=== PATIENT | female | born 1935 | race Caucasian/White ===

== ENCOUNTER 2020-09-05 13:31 | Emergency (ER) | payer OTHER, SELFPAY ==
[2020-09-05 13:41] VITALS: BP 137/58; PULSE 85; RESP 14; TEMP 36.7; O2SAT 98
--- NOTE | 2020-09-05 13:44 | DI.RAD.S_ITS ---
PROCEDURE: XR KNEE LT 3V INDICATIONS: knee pain TECHNIQUE: 3 views of the knee were acquired. COMPARISON: None. FINDINGS: Bones: No fractures or dislocations. No suspicious bony lesions. Soft tissues: No joint effusion. No suspicious soft tissue calcifications. IMPRESSION: No visualized acute fracture or dislocation. However, if clinical concern and/or pain persist, short interval imaging followup in 7-10 days is recommended, as occult injury cannot be definitively excluded. Dictated by: Maribel Ferro M.D. on 09/05/2020 at 14:23 Approved by: Maribel Ferro M.D. on 09/05/2020 at 14:27
--- NOTE | 2020-09-05 13:48 | ED_ITS ---
HPI - Extremity Injury (Lower) <SUSAN Martinez - Last Filed: 09/05/20 20:43> General Chief Complaint: Extremity Injury, Lower Stated Complaint: increase in pain,worse range of motion l knee Time Seen by Provider: 09/05/20 13:40 Source: family Mode of arrival: Wheelchair History of Present Illness HPI Narrative: 85yo female with a history of dementia presents emergency department with family for left knee pain. She denies any falls but awoke this morning complaining of worsening pain with weight-bearing and bending in her left knee. Family noted some bruising to the knee. She denies taking any blood thinners, denies any other pain such as hip pain, denies falls, denies head injury, chest pain, shortness of breath, fevers, unusual behavior, vomiting, diarrhea, or any other concerns. Review of Systems <SUSAN Martinez - Last Filed: 09/05/20 20:43> Review of Systems Narrative: REVIEW OF SYSTEMS: GENERAL: Denies fever or chills. HENT: No head trauma. CARDIOVASCULAR: No chest pain or syncope. RESPIRATORY: No shortness of breath or cough. GASTROINTESTINAL: No nausea, vomiting, diarrhea, or constipation. MUSCULOSKELETAL: Complains of left knee pain, see HPI. INTEGUMENTARY: No rash. NEURO: No numbness, tingling. PSYCH: No behavior or mood changes. Patient History <SUSAN Martinez - Last Filed: 09/05/20 20:43> Medical History Dementia (Acute) Social History Smoking Status: Never smoker Smoking Status: Never smoker Exam <SUSAN Martinez - Last Filed: 09/05/20 20:43> Initial Vital Signs Initial Vital Signs: Vital Signs Temperature 98.1 F 09/05/20 13:41 Pulse Rate 85 09/05/20 13:41 Respiratory Rate 14 09/05/20 13:41 Blood Pressure 137/58 L 09/05/20 13:41 Pulse Oximetry 98 09/05/20 13:41 PHYSICAL EXAMINATION: GENERAL: Well groomed, alert, and cooperative. Answers questions promptly and appropriately. Vital signs noted. HENT: Normocephalic, atraumatic. EYES: Symmetrical, sclera white, no periorbital swelling. CARDIOVASCULAR: S1 and S2 sounds normal. Regular rate and rhythm, no murmurs, clicks, or bruits. No pedal edema. RESPIRATORY: Normal respiratory rate, trachea midline, airway patent. No stridor, nasal flaring or accessory muscle use. Lungs are clear in all sánchez. MUSCULOSKELETAL: No tenderness to palpation of left knee but increased pain with flexion, flexion to approximately 90?, full extension. To patches of ecchymosis noted to patella and inferior patella area. No pain with palpation to left hip, internal, external rotation or hip flexion. Normal gait and coordination. Equal tone and mass bilaterally. EXTREMITIES: CMS intact. No pedal edema. SKIN: Warm, dry, soft, appropriate color for ethnicity. No lesions, rashes, or wounds. NEURO: Alert and Oriented X 3. No sensory deficits. PSYCH: Appropriate affect and mood. <Jose Luis Cox MD - Last Filed: 09/06/20 18:05> Initial Vital Signs Initial Vital Signs: Vital Signs Temperature 98.1 F 09/05/20 13:41 Pulse Rate 85 09/05/20 13:41 Respiratory Rate 14 09/05/20 13:41 Blood Pressure 137/58 L 09/05/20 13:41 Pulse Oximetry 98 09/05/20 13:41 Course <SUSAN Martinez - Last Filed: 09/05/20 20:43> Course Course Narrative: Patient seen putting weight on left leg without complains of pain. Orders Ordered: Discontinued Medications Acetaminophen (Tylenol) 650 mg PO NOW ONE Stop: 09/05/20 13:48 Last Admin: 09/05/20 14:20 Dose: 650 mg Documented by: TONG Vital Signs Vital signs: Vital Signs - 8 hr 09/05/20 13:41 09/05/20 15:28 Temperature 98.1 F Pulse Rate 85 78 Respiratory Rate 14 14 Blood Pressure 137/58 L 137/59 L Pulse Oximetry 98 99 <Jose Luis Cox MD - Last Filed: 09/06/20 18:05> Orders Ordered: Discontinued Medications Acetaminophen (Tylenol) 650 mg PO NOW ONE Stop: 09/05/20 13:48 Last Admin: 09/05/20 14:20 Dose: 650 mg Documented by: TONG Vital Signs Vital signs: Vital Signs - 8 hr 09/05/20 13:41 09/05/20 15:28 Temperature 98.1 F Pulse Rate 85 78 Respiratory Rate 14 14 Blood Pressure 137/58 L 137/59 L Pulse Oximetry 98 99 [facility] - Extremity Injury (Lower) <SUSAN Martinez - Last Filed: 09/05/20 20:43> Medical Records Attestation: I reviewed the patient's medical records. Lab Data Attestation: I reviewed the patient's lab results. Imaging Data Extremity x-ray #1: Radiologist's Impression: [address] [address] XRay Report Signed Patient: Nargis Gutierrez DMR#: [id number] : 6Acct:[id number] Age/Sex: 85 / FDate of Service: 09/05/20 Loc: ED Accession Number: [id number] Procedure: XR knee LT 3V Ordering Provider: Miranda Gallo PROCEDURE: XR KNEE LT 3V INDICATIONS: knee pain TECHNIQUE: 3 views of the knee were acquired. COMPARISON: None. FINDINGS: Bones: No fractures or dislocations. No suspicious bony lesions. Soft tissues: No joint effusion. No suspicious soft tissue calcifications. IMPRESSION: No visualized acute fracture or dislocation. However, if clinical concern and/or pain persist, short interval imaging followup in 7-10 days is recommended, as occult injury cannot be definitively excluded. Dictated by: Maribel Ferro M.D. on 09/05/2020 at 14:23 Approved by: Maribel Ferro M.D. on 09/05/2020 at 14:27 [facility] Narrative Medical decision making narrative: 85-year-old female presenting to the emergency department for complaints of left knee pain. She appears to have a history of dementia, presents with family who saw some bruising on her knee is concern for possible fall even the patient refuses recent falls. X-ray negative for any fractures, no significant pain on palpation, able to bear weight with transfer. Unsure exact cause of knee pain but differential includes contusion, sprain, versus arthritis. Return precautions given for new or worsening symptoms. Patient agreed to plan of care verbalized understanding. Discharge Plan Departure Patient Disposition: Home Clinical Impression: Acute knee pain Qualifiers: Laterality: left Qualified Code(s): M25.562 - Pain in left knee Discharge Date/Time: 09/05/20 15:30 Instructions: DI for Knee Pain Activity Restrictions/Additional Instructions: Thank you for entrusting me with your care today. As discussed, x-rays negative for any fractures. I suggest taking Tylenol (650mg every 8 hours) and using an elastic bandage for the next few days to help with pain. Follow-up with PCP if symptoms continue. Return emergency department for any new or worsening symptoms. <Jose Luis Cox MD - Last Filed: 09/06/20 18:05> Cosign ED Attending Cosignature Attestation: I was immediately available in the department for consultation. This documentation has been reviewed and I agree with assessment and plan. Supervised by Jose Luis Cox MD
[2020-09-05] MEDS: ACETAMINOPHEN 325 MG TABLET 650 MG PO (14:20)
[2020-09-05 15:28] VITALS: BP 137/59; PULSE 78; RESP 14; O2SAT 99
== END 2020-09-05 15:30 | disposition home or self-care (01) ==
PROVIDERS: Emergency Provider Nurse Practitioner
DX: M25.562 Pain in left knee (principal)
CPT/HCPCS: 73562; 99283

== ENCOUNTER 2020-12-11 13:01 | Emergency (ER) | payer OTHER, SELFPAY ==
[2020-12-11] VITALS (8 sets, daily range): BP systolic 131–141; BP diastolic 61–65; PULSE 77–87; RESP 15–18; TEMP 36.8; O2SAT 94–97; BMI 21.0
--- NOTE | 2020-12-11 13:02 | ED_ITS ---
HPI - Fall General Chief Complaint: Fall Stated Complaint: GLF Time Seen by Provider: 12/11/20 13:02 Source: patient and EMS Mode of arrival: EMS Limitations: no limitations History of Present Illness HPI Narrative: Patient is a 85-year-old female who resides at [facility] presenting after a ground level. She is unsure exactly how she fell but she hit her head on the left side where there is an obvious contusion and has left knee pain. No loss of consciousness numbness tingling or weakness. She d enies any chest pain dizziness or lightheadedness. complaint: fall Onset (ago): minute(s) Fall from: standing Place fall occurred: home Loss of consciousness: none Related Data Allergies Allergy/AdvReac Type Severity Reaction Status Date / Time codeine Allergy Verified 12/11/20 13:13 metronidazole [From Flagyl] Allergy Verified 12/11/20 13:13 Review of Systems Review of Systems Narrative: GENERAL: Denies chills, fatigue, malaise, fever, sweats, travel HEENT: Denies sinus pain, ear pain, sore throat, difficulty swallowing, neck pain RESPIRATORY: Denies dyspnea, cough, wheezing, hemoptysis, sputum. CARDIOVASCULAR: Denies chest pain, palpitations, orthopnea, edema GASTROINTESTINAL: Denies nausea, vomiting, abdominal pain, diarrhea, constipation, melena. : Denies dysuria, frequency, incontinence, hematuria, urinary retention, flank pain. MUSCULOSKELETAL: Left knee pain, see HPI SKIN: No rash, no erythema, no pruritus NEUROLOGIC:+ head injury, see HPI PSYCHIATRIC: No concerning psychosocial issues. 12 point review of systems is negative except for those stated above and HPI Patient History Medical History (Updated 12/11/20 @ 18:09 by Lainey Sanders DO) Dementia Social History Smoking Status: Never smoker Smoking Status: Never smoker Exam Initial Vital Signs Initial Vital Signs: Vital Signs Temperature 98.3 F 12/11/20 13:10 Pulse Rate 80 12/11/20 13:10 Respiratory Rate 16 12/11/20 13:10 Blood Pressure 133/61 12/11/20 13:10 Pulse Oximetry 97 12/11/20 13:10 GENERAL: Alert pleasant 85 in female and in no acute distress. HEENT: Head left eyebrow, in no crepitations or depressions,EOMI, pupils reactive, face symmetric, moist mucous membranes NECK: No vertebral tenderness no step-off CARDIOVASCULAR: Regular rate and rhythm without murmurs, rubs or gallops. RESPIRATORY: Breath sounds equal bilaterally, no wheezes rales or rhonchi. ABDOMEN: Soft, nontender. Normoactive bowel sounds all 4 quadrants. No guarding or rebound. EXTREMITIES: Normal range of motion, no clubbing or edema. 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 Scores NIH Stroke Scale Level of Conciousness: Alert, keenly responsive Ask month/age: Answers one question correctly, intubated follow commands Open/close eyes, close hand: Performs both tasks correctly Best gaze horizontal: Normal Visual sánchez: No visual loss Facial palsy: Normal symetrical movement Left arm drift: No drift for full 10 sec Right arm drift: No drift for full 10 sec Left leg drift: No drift for full 5 sec Right leg drift: No drift for full 5 sec Limb ataxia: Absent Sensory on face/arms/legs: Normal, no sensory loss Best language: No aphasia, normal Dysarthria: Normal Extinction or inattention: No abnormality Total NIH Stroke scale score: 1 Course Orders Ordered: ED Orders 12/11/20 13:14 CT cervical spine wo con Stat CT head/brain wo con Stat XR knee LT 3V Stat EKG-12 Lead Stat 12/11/20 13:18 Basic Metabolic Panel Stat Complete Blood Count AUTO DIFF Stat Partial Thromboplastin Time Stat Prothrombin Time INR Stat 12/11/20 14:13 COVID19 Stat 12/11/20 17:15 CT head/brain wo con Stat Vital Signs Vital signs: Vital Signs - 8 hr 12/11/20 13:10 12/11/20 14:00 12/11/20 14:50 Temperature 98.3 F Pulse Rate 80 83 87 Respiratory Rate 16 16 18 Blood Pressure 133/61 139/63 Pulse Oximetry 97 94 97 12/11/20 15:32 12/11/20 16:47 12/11/20 16:48 Temperature Pulse Rate 78 80 79 Respiratory Rate 18 Blood Pressure 131/65 131/63 Pulse Oximetry 96 96 95 12/11/20 16:49 12/11/20 18:09 Temperature Pulse Rate 77 79 Respiratory Rate 16 15 Blood Pressure 137/63 141/65 H Pulse Oximetry 97 95 - Fall Lab Data Attestation: I reviewed the patient's lab results. Result diagrams: 12/11/20 13:18 12/11/20 13:18 Labs: Lab Results 12/11/20 12/11/20 12/11/20 Range/Units 13:18 13:18 13:18 WBC 6.3 (4.5-11.0) X10^3/uL RBC 4.10 (4.0-5.2) X10^6/uL Hgb 11.4 L (12.0-16.0) g/dL Hct 35.2 L (36-46) % MCV 85.9 (80-100) fL MCH 27.9 (26-34) PG MCHC 32.5 (30-36) % RDW 14.8 (11.6-14.8) % Plt Count 143 L (150-400) X10^3/uL Neut % (Auto) 68.5 (50-75) % Lymph % (Auto) 19.8 L (25-40) % [place] % (Auto) 10.6 (3-14) % Eos % (Auto) 0.6 L (2-4) % Baso % (Auto) 0.5 (0-2) % Neut # (Auto) 4300 (6719-5729) /uL Lymph # (Auto) 1200 (8980-4490) /uL [place] # (Auto) 700 (0-900) /uL Eos # (Auto) 0 (0-450) /uL Baso # (Auto) 0 (0-100) /uL PT 12.0 (10.1-12.7) SECONDS INR 1.0 (0.9-1.3) APTT 35 (26.4-36.2) SECONDS Sodium 139 (137-145) mmol/L Potassium 4.3 (3.4-5.1) mmol/L Chloride 107 (98-107) mmol/L Carbon Dioxide 29 (22-32) mmol/L BUN 15 (7-17) mg/dL Creatinine 0.73 (0.52-1.04) mg/dL Estimated GFR > 60.0 (>60) mL/min BUN/Creatinine Ratio 20.5 (6-22) Glucose 112 H (80-110) mg/dL Calcium 8.7 (8.4-10.2) mg/dL SARS-CoV-2 (PCR) (Negative) 12/11/20 Range/Units 14:13 WBC (4.5-11.0) X10^3/uL RBC (4.0-5.2) X10^6/uL Hgb (12.0-16.0) g/dL Hct (36-46) % MCV (80-100) fL MCH (26-34) PG MCHC (30-36) % RDW (11.6-14.8) % Plt Count (150-400) X10^3/uL Neut % (Auto) (50-75) % Lymph % (Auto) (25-40) % [place] % (Auto) (3-14) % Eos % (Auto) (2-4) % Baso % (Auto) (0-2) % Neut # (Auto) (5229-6982) /uL Lymph # (Auto) (3464-2051) /uL [place] # (Auto) (0-900) /uL Eos # (Auto) (0-450) /uL Baso # (Auto) (0-100) /uL PT (10.1-12.7) SECONDS INR (0.9-1.3) APTT (26.4-36.2) SECONDS Sodium (137-145) mmol/L Potassium (3.4-5.1) mmol/L Chloride (98-107) mmol/L Carbon Dioxide (22-32) mmol/L BUN (7-17) mg/dL Creatinine (0.52-1.04) mg/dL Estimated GFR (>60) mL/min BUN/Creatinine Ratio (6-22) Glucose (80-110) mg/dL Calcium (8.4-10.2) mg/dL SARS-CoV-2 (PCR) Negative (Negative) Imaging Data CT scan - head: Radiologist's Impression: PROCEDURE: CT HEAD/BRAIN WO CON INDICATIONS: fall contusion TECHNIQUE: Noncontrast 4.5 mm thick angled axial sections acquired from the foramen magnum to the vertex, with coronal and sagittal reformats. For radiation dose reduction, the following was used: automated exposure control, adjustment of mA and/or kV according to patient size. COMPARISON: [facility], CR, XR KNEE LT 3V, 12/11/2020, 13:32. [facility], CT, CT CERVICAL SPINE WO CON, 12/11/2020, 13:17. FINDINGS: Image quality: Excellent. CSF spaces: Basal cisterns are patent. No extra-axial fluid collections. The ventricles are symmetric in size and shape. Brain: Within the left cerebellar hemisphere, there is a 7 mm focus of hyperdensity seen. No intracranial masses. There is cerebral volume loss for age, with resultant ventricular and sulcal prominence. There are periventricular and deep white matter chronic small vessel ischemic changes. There is intracranial internal carotid artery atherosclerosis. Skull and face: Left periorbital scalp swelling is seen. No underlying calvarial fracture can be seen. Calvarium and visualized facial bones appear intact, without suspicious lesions. Incidental note is made of hyperostosis frontalis. This is not considered to be pathologic in a woman of this age. Sinuses: Visualized sinuses and mastoids are clear. IMPRESSION: 7 mm focus of hyperdensity within the left cerebellar hemisphere. In this patient with trauma, this is attributed to a focus of intraparenchymal hemorrhage. However, differential diagnosis would also include a hemangioma. There is left periorbital soft tissue swelling, without an associated fracture. Note is made of age-appropriate brain parenchymal volume loss and chronic small vessel ischemic changes. Note: Critical finding of acute intracranial hemorrhage discussed by telephone with Dr. Sanders at 12:44 p.m. [place] time on December 11, 2020. Dictated by: Casper Barajas M.D. on 12/11/2020 at 12:42 CT - cervical spine: Radiologist's Impression: PROCEDURE: CT CERVICAL SPINE WO CON INDICATIONS: fall TECHNIQUE: Noncontrast 3 mm thick sections acquired from the skull base to the T4 level. Sagittal and coronal reformats were then constructed. For radiation dose reduction, the following was used: automated exposure control, adjustment of mA and/or kV according to patient size. COMPARISON: [facility], CR, XR KNEE LT 3V, 12/11/2020, 13:32. [facility], CT, CT HEAD/BRAIN WO CON, 12/11/2020, 13:17. FINDINGS: Image quality: Excellent. Bones: No fractures or dislocations. Visualized superior ribs are intact. Degenerative changes are seen, including moderate disc space narrowing at C3-C4, with moderate to severe disc space narrowing at C4-C5, C5-C6, and C6-C7. Posteriorly directed endplate osteophytes are seen, which are worst at the C5-C6 level. Milder degenerative changes are seen elsewhere. Soft tissues: There is a small left-sided pleural effusion. Prevertebral soft tissues are normal in thickness. No paravertebral hematomas. No apical pneumothoraces. IMPRESSION: No acute fractures are seen. Small left-sided pleural effusion. Lower cervical spine degenerative changes are seen. Note: Case discussed by telephone with Dr. Sanders at 12:44 p.m. [place] time on December 11, 2020. Dictated by: Casper Barajas M.D. on 12/11/2020 at 12:46 Extremity x-ray #1: Radiologist's Impression: PROCEDURE: XR KNEE LT 3V INDICATIONS: fall pain TECHNIQUE: 3 views of the knee were acquired. COMPARISON: [facility], CT, CT HEAD/BRAIN WO CON, 12/11/2020, 13:17. [facility], CT, CT CERVICAL SPINE WO CON, 12/11/2020, 13:17. [facility], CR, XR KNEE LT 3V, 09/05/2020, 13:47. FINDINGS: Bones: No fractures or dislocations. No suspicious bony lesions. Age- appropriate bony degenerative changes are seen. Soft tissues: There is a moderate joint effusion. No suspicious soft tissue calcifications. IMPRESSION: Degenerative changes are seen, without an acute bony abnormality seen by plain film. Moderate joint effusion. If there is strong clinical suspicion for internal derangement of the knee, please consider a dedicated, scheduled MRI for further evaluation (assuming that there is no contraindication to MRI). Dictated by: Casper Barajas M.D. on 12/11/2020 at 12:[address] #2: Radiologist's Impression: PROCEDURE: CT HEAD/BRAIN WO CON INDICATIONS: f/u on bleed TECHNIQUE: Noncontrast 4.5 mm thick angled axial sections acquired from the foramen magnum to the vertex, with coronal and sagittal reformats. For radiation dose reduction, the following was used: automated exposure control, adjustment of mA and/or kV according to patient size. COMPARISON: [facility], CT, CT HEAD/BRAIN WO CON, 12/11/2020, 13:17. FINDINGS: Image quality: Excellent. CSF spaces: Basal cisterns are patent. No extra-axial fluid collections. The ventricles are symmetric in size and shape. Brain: There is a stable hyperdense focus seen within the left cerebellum, without enlargement. No new foci of hemorrhage can be seen. No intracranial masses. There is cerebral volume loss for age, with resultant ventricular and sulcal prominence. There are periventricular and deep white matter chronic small vessel ischemic changes. There is intracranial internal carotid artery atherosclerosis. Skull and face: There is soft tissue swelling with hematoma involving the left periorbital region. No underlying regional fracture can be seen. Incidental note is made of hyperostosis frontalis. This is not considered to be pathologic in a woman of this age. Sinuses: Visualized sinuses and mastoids are clear. IMPRESSION: Stable focus of presumed acute hemorrhage within the left cerebellar hemisphere. Left periorbital soft tissue swelling, without an associated regional fracture. Dictated by: Casper Barajas M.D. on 12/11/2020 at 16:33 ECG Data Attestation: I personally reviewed and interpreted this ECG as follows: Prior ECG tracings: not available for review Interpretation: Normal sinus rhythm rate 80 p.r. interval 144 QRS [address] changes no priors to compare MDM Narrative Medical decision making narrative: Patient is neurologically intact not on any antiplatelet or anticoagulation medication. Found to have a small 7 mm area of hemorrhage on her CT. She has no focal deficits she is at her baseline mental status. Son is at bedside. 3:[address] Forman neuro surgery at [facility] recommends a 4 hour follow-up CT. If stable may be discharged home and follow up only if she has persistent symptoms. Discussed at length with son goals of care intervention versus no intervention. At this time he agrees with repeat head CT and reassessed. She continues to be at her baseline. Repeat head CT remains stable in un changed and so does the patient clinically. At this time he understands that she may worsen and to monitor for warning signs and return if needed. Discharge Plan Departure Patient Disposition: Home Clinical Impression: Intracranial hemorrhage Instructions: Subarachnoid Hemorrhage Activity Restrictions/Additional Instructions: *You have been diagnosed with intracranial hemorrhage *What to do: At this time bleeding in her brain appears stable and small. Avoid NSAIDs such as aspirin, Aleve, ibuprofen, Motrin, naproxen etc. *Continue to take medications as directed Tylenol 650 mg every 4-6 hours if needed for pain *Follow up with your primary care provider in 2-3 days *Return to ER if you should have increased confusion, persistent vomiting, no weakness numbness facial droop or any new, worsening or concerning symptoms Referrals: Arianna Berg MD [Primary Care Provider] -
--- NOTE | 2020-12-11 13:14 | DI.CT.S_ITS ---
PROCEDURE: CT HEAD/BRAIN WO CON INDICATIONS: fall contusion TECHNIQUE: Noncontrast 4.5 mm thick angled axial sections acquired from the foramen magnum to the vertex, with coronal and sagittal reformats. For radiation dose reduction, the following was used: automated exposure control, adjustment of mA and/or kV according to patient size. COMPARISON: [facility], CR, XR KNEE LT 3V, 12/11/2020, 13:32. [facility], CT, CT CERVICAL SPINE WO CON, 12/11/2020, 13:17. FINDINGS: Image quality: Excellent. CSF spaces: Basal cisterns are patent. No extra-axial fluid collections. The ventricles are symmetric in size and shape. Brain: Within the left cerebellar hemisphere, there is a 7 mm focus of hyperdensity seen. No intracranial masses. There is cerebral volume loss for age, with resultant ventricular and sulcal prominence. There are periventricular and deep white matter chronic small vessel ischemic changes. There is intracranial internal carotid artery atherosclerosis. Skull and face: Left periorbital scalp swelling is seen. No underlying calvarial fracture can be seen. Calvarium and visualized facial bones appear intact, without suspicious lesions. Incidental note is made of hyperostosis frontalis. This is not considered to be pathologic in a woman of this age. Sinuses: Visualized sinuses and mastoids are clear. IMPRESSION: 7 mm focus of hyperdensity within the left cerebellar hemisphere. In this patient with trauma, this is attributed to a focus of intraparenchymal hemorrhage. However, differential diagnosis would also include a hemangioma. There is left periorbital soft tissue swelling, without an associated fracture. Note is made of age-appropriate brain parenchymal volume loss and chronic small vessel ischemic changes. Note: Critical finding of acute intracranial hemorrhage discussed by telephone with Dr. Sanders at 12:44 p.m. [place] time on December 11, 2020. Dictated by: Casper Barajas M.D. on 12/11/2020 at 12:42 Approved by: Casper Barajas M.D. on 12/11/2020 at 12:45
--- NOTE | 2020-12-11 13:14 | DI.RAD.S_ITS ---
PROCEDURE: XR KNEE LT 3V INDICATIONS: fall pain TECHNIQUE: 3 views of the knee were acquired. COMPARISON: [facility], CT, CT HEAD/BRAIN WO CON, 12/11/2020, 13:17. [facility], CT, CT CERVICAL SPINE WO CON, 12/11/2020, 13:17. [facility], CR, XR KNEE LT 3V, 09/05/2020, 13:47. FINDINGS: Bones: No fractures or dislocations. No suspicious bony lesions. Age-appropriate bony degenerative changes are seen. Soft tissues: There is a moderate joint effusion. No suspicious soft tissue calcifications. IMPRESSION: Degenerative changes are seen, without an acute bony abnormality seen by plain film. Moderate joint effusion. If there is strong clinical suspicion for internal derangement of the knee, please consider a dedicated, scheduled MRI for further evaluation (assuming that there is no contraindication to MRI). Dictated by: Casper Barajas M.D. on 12/11/2020 at 12:47 Approved by: Casper Barajas M.D. on 12/11/2020 at 12:49
--- NOTE | 2020-12-11 13:14 | DI.CT.S_ITS ---
PROCEDURE: CT CERVICAL SPINE WO CON INDICATIONS: fall TECHNIQUE: Noncontrast 3 mm thick sections acquired from the skull base to the T4 level. Sagittal and coronal reformats were then constructed. For radiation dose reduction, the following was used: automated exposure control, adjustment of mA and/or kV according to patient size. COMPARISON: [facility], CR, XR KNEE LT 3V, 12/11/2020, 13:32. [facility], CT, CT HEAD/BRAIN WO CON, 12/11/2020, 13:17. FINDINGS: Image quality: Excellent. Bones: No fractures or dislocations. Visualized superior ribs are intact. Degenerative changes are seen, including moderate disc space narrowing at C3-C4, with moderate to severe disc space narrowing at C4-C5, C5-C6, and C6-C7. Posteriorly directed endplate osteophytes are seen, which are worst at the C5-C6 level. Milder degenerative changes are seen elsewhere. Soft tissues: There is a small left-sided pleural effusion. Prevertebral soft tissues are normal in thickness. No paravertebral hematomas. No apical pneumothoraces. IMPRESSION: No acute fractures are seen. Small left-sided pleural effusion. Lower cervical spine degenerative changes are seen. Note: Case discussed by telephone with Dr. Sanders at 12:44 p.m. [place] time on December 11, 2020. Dictated by: Casper Barajas M.D. on 12/11/2020 at 12:46 Approved by: Casper Barajas M.D. on 12/11/2020 at 12:47
[2020-12-11 13:27] LABS: Add Manual Diff / Slide Review NO; Basophils Absolute Auto 0 /uL (0-100); Basophils Percent Auto 0.5 % (0-2); Eosinophils Absolute Auto 0 /uL (0-450); Eosinophils Percent Auto 0.6 % (2-4); Hematocrit 35.2 % (36-46); Hemoglobin 11.4 g/dL (12.0-16.0); Lymphocytes Absolute Auto 1200 /uL (1100-4500); Lymphocytes Percent Auto 19.8 % (25-40); Mean Corpuscular HGB Conc 32.5 % (30-36); Mean Corpuscular Hemoglobin 27.9 PG (26-34); Mean Corpuscular Volume 85.9 fL (80-100); Monocytes Absolute Auto 700 /uL (0-900); Monocytes Percent Auto 10.6 % (3-14); Neutrophils Absolute Auto 4300 /uL (1500-7000); Neutrophils Percent Auto 68.5 % (50-75); Platelet Count 143 X10^3/uL (150-400); Red Cell Distribution Width 14.8 % (11.6-14.8); White Blood Cell Count 6.3 X10^3/uL (4.5-11.0)
[2020-12-11 13:36] LABS: BUN Creatinine Ratio 20.5 (6-22); Blood Urea Nitrogen 15 mg/dL (7-17); Calcium 8.7 mg/dL (8.4-10.2); Carbon Dioxide 29 mmol/L (22-32); Chloride 107 mmol/L (98-107); Estimated Glomerular Filt Rate > 60.0 mL/min (>60); Glucose 112 mg/dL (80-110); HEMOLYSIS < 15 (0-50); Potassium 4.3 mmol/L (3.4-5.1); Sodium 139 mmol/L (137-145)
[2020-12-11 13:56] LABS: PTT Partial Thromboplastin Tim 35 SECONDS (26.4-36.2)
[2020-12-11 14:33] LABS: COVID19 -Nasal RAPID Negative (Negative)
--- NOTE | 2020-12-11 17:15 | DI.CT.S_ITS ---
PROCEDURE: CT HEAD/BRAIN WO CON INDICATIONS: f/u on bleed TECHNIQUE: Noncontrast 4.5 mm thick angled axial sections acquired from the foramen magnum to the vertex, with coronal and sagittal reformats. For radiation dose reduction, the following was used: automated exposure control, adjustment of mA and/or kV according to patient size. COMPARISON: [facility], CT, CT HEAD/BRAIN WO CON, 12/11/2020, 13:17. FINDINGS: Image quality: Excellent. CSF spaces: Basal cisterns are patent. No extra-axial fluid collections. The ventricles are symmetric in size and shape. Brain: There is a stable hyperdense focus seen within the left cerebellum, without enlargement. No new foci of hemorrhage can be seen. No intracranial masses. There is cerebral volume loss for age, with resultant ventricular and sulcal prominence. There are periventricular and deep white matter chronic small vessel ischemic changes. There is intracranial internal carotid artery atherosclerosis. Skull and face: There is soft tissue swelling with hematoma involving the left periorbital region. No underlying regional fracture can be seen. Incidental note is made of hyperostosis frontalis. This is not considered to be pathologic in a woman of this age. Sinuses: Visualized sinuses and mastoids are clear. IMPRESSION: Stable focus of presumed acute hemorrhage within the left cerebellar hemisphere. Left periorbital soft tissue swelling, without an associated regional fracture. Dictated by: Casper Barajas M.D. on 12/11/2020 at 16:33 Approved by: Casper Barajas M.D. on 12/11/2020 at 16:34
== END 2020-12-11 18:36 | disposition home or self-care (01) ==
PROVIDERS: Emergency Provider Emergency Medicine; PCP Student in an Organized Health Care Education/Training Program
DX: S06.309A Unspecified focal traumatic brain injury with loss of consciousness of unspecified duration, initial encounter (principal); S80.02XA Contusion of left knee, initial encounter; W19.XXXA Unspecified fall, initial encounter
CPT/HCPCS: 70450; 72125; 73562; 80048; 85025; 85610; 85730; 87635; 93005; 93010; 99283; 99284; C9803

== ENCOUNTER 2021-01-16 11:15 | Outpatient (RCR) | payer OTHER, SELFPAY ==
--- NOTE | 2020-11-10 15:03 | PT-OP ANOTE ---
Pt arrived for her evaluation today. Only information on referral said weakness. Pt repeated multiple times she had no clue why I'm here. Noted she has problems with my memory, but not really any physical problems. Pt denied falls, denied pain, denied weakness. Therapist phoned pt's Son, who reported he had no idea what she was here for, but reported Cristy at [facility] has been in charge of her care, and would know more. Therapist tried to contact her, and was unable to get a hold of her. Decided at this time, 30 minutes into appointment time, to cancel appointment until more information could be obtained. After pt's ride from [facility] was called, finally found an outside medical report stating that pt was living in [place], she was housebound due to Covid-19 and felt she was deconditioned. Will reschedule initial eval in the future to evaluate pt generalized deconditioning.
--- NOTE | 2020-11-17 13:46 | PT.OIE ---
Current Diagnoses Other abnormalities of gait and mobility (11/17/20) Repeated falls (11/17/20) Weakness (11/17/20) History of falling (11/17/20) Past Medical History (Last Reviewed 09/05/20 @ 13:50 by SUSAN Martinez) Dementia Visit Care Team Role Provider Type Arianna Berg MD Attending Provider Physician Primary Care Provider Referring Provider Specialty: Family Practice Address: [address] [place] [address], [facility], [place], [place], [facility] Email: [email or web address] Physical Therapy Initial Evaluation PT-OP-A Visit Information Start: 11/17/20 13:19 Freq: Status: Active Protocol: Document 11/17/20 10:40 DCW (Rec: 11/17/20 13:44 DCW [id number]) Out-Patient Physical Therapy Visit Information Visit Information Visit Type Initial Evaluation Visit Start Time 10:40 Visit Stop Time 11:15 Total Visit Minutes 35 Visit Number 1 Number of MANAGER RECRUITING Visits 0 Evaluation Information Evaluation Date 11/17/20 PT-OP-B Current Condition Start: 11/17/20 13:19 Freq: Status: Active Protocol: Document 11/17/20 10:40 DCW (Rec: 11/17/20 13:44 DCW [id number]) Current Condition History of Current Condition Onset Date 10 months Current Complaints Deconditioning, fall history History of Current Condition Pt is an 85 year old female with a recent history of falls and deconditioning. Pt's [id number] attends today' s evaluation due to pt's severe dementia. Pt is very sweet, however is confused about everything and is unable to answer any questions regarding her limitations. DiL states that 10 months ago, pt was living in an assisted living community in [place], and during the Covid shut-down , was essentially stuck in her room for 6 months. Pt unfortunately suffered a significant decline in function over that time, and had minimal activity or movement. Four months ago, Pt' s son and [id number] moved the pt to [place] to be closer to family, and pt is currently living in [facility]. Pt was doing slightly better, because she was able to move around more, but was still weak and experiencing multiple falls. Unfortunately, Michelle had a covid outbreak recently, which meant pt was once again stuck in her room for an extended period of time , and once again declined in function. Pt insists that she is doing fine and has not had any falls, however she is a very unreliable historian due to her memory. Treatment Goals Patient/Caregiver Goals Decrease falls, improve mobility and strength PT-OP-C Subjective Start: 11/17/20 13:19 Freq: Status: Active Protocol: Document 11/17/20 10:40 DCW (Rec: 11/17/20 13:44 DCW [id number]) OP-PT Subjective Patient Comments Patient Comments I don't know what I'm doing here, I'm fine physically, it' s only my memory. PT-OP-D Balance Start: 11/17/20 13:19 Freq: Status: Active Protocol: Document 11/17/20 10:40 DCW (Rec: 11/17/20 13:44 DCW [id number]) OP-PT Balance Assessment Sitting Balance Static Sitting Balance Ability Normal Dynamic Sitting Balance Ability Normal Standing Balance Static Standing Balance Ability Fair Dynamic Standing Balance Ability Fair Device Used None Balance Tests Austin Balance Test Austin Balance Test Score 36/56 Austin Impairment Rating 20 to 39% Impaired (Score 34- 44) Austin Balance Assessment Evaluation Sitting to Standing Ability Independent w/out Hands Unsupported Stance Safely- 2 minutes Sitting Unsupported, Feet on Floor Safely- 2 minutes Standing to Sitting Ability Assist, Use Legs on Chair Transfer Ability Supervision, Verbal Cues Unsupported Stance- Eyes Closed Supervision, 10 seconds Unsupported Stance- Eyes Open Assist to attain, 15 secs Reaching Forward Standing Safely, 5 inches Pick- Up Object From Floor Supervision Look Behind Shoulder - Standing Turns Sideways Only Turning 360 Degrees Turns slowly, but safely Unsupported Stance, Alternating Feet on 4 Steps w/Supervision Stair Unsupported Tandem Stance Small Step- 30 seconds Unilateral Leg Stance Lifts Leg/Holds > 3 secs Total Score Austin Total Score (out of 56 points) 36 Austin Impairment Rating 20 to 39% Impaired (Score 34- 44) Jones Fall Scale Copyright Permission PT-OP-E Functional Tests Start: 11/17/20 13:19 Freq: Status: Active Protocol: Document 11/17/20 10:40 DCW (Rec: 11/17/20 13:44 DCW [id number]) Functional Tests Dynamic Gait Index (DGI) Score 10/18 DGI Impairment Rating 40 to <60% Impaired (Score 10- 14) PT-OP-M Strength Start: 11/17/20 13:44 Freq: Status: Active Protocol: Document 11/17/20 10:40 DCW (Rec: 11/17/20 13:46 DCW [id number]) Hip Strength Hip Manual Muscle Testing Right Flexion (L2) 4- Good- Abduction 4- Good- Adduction 4- Good- Left Flexion (L2) 3+ Fair+ Abduction 4- Good- Adduction 4- Good- Knee Strength Knee Manual Muscle Testing Right Flexion (S2) 4 Good Extension (L3) 4- Good- Left Flexion (S2) 4 Good Extension (L3) 2+ Poor+ Ankle/Foot Strength Ankle and Foot Manual Muscle Testing Right Dorsiflexion (L4) 4- Good- Plantarflexion (S1) 4- Good- Left Dorsiflexion (L4) 4- Good- Plantarflexion (S1) 4- Good- PT-OP-T Assessment and Plan Start: 11/17/20 13:19 Freq: Status: Active Protocol: Document 11/17/20 10:40 DCW (Rec: 11/17/20 13:44 DCW [id number]) Physical Therapy Assessment Rehab Potential Rehabilitation Potential Fair Evaluation Complexity Number of Personal Factors/Comorbidities 1-2 Number of Body Systems Impaired 3 Clinical Presentation at Evaluation Unstable Impairments Impairments Activity Tolerance,Balance, Coordination,Functional Activities,Gait,Strength Other Concerns Fall Risk Yes, per Austin (36/56) and DGI (10/18) Barriers to Rehabilitation Dementia, Falls Goals Two Impairment LE weakness limits pt stability Skilled Nursing Goal (LTG) Pt to demonstrate MMT B LE 4-/ 5 or greater LTG Duration 01/18/21 One Impairment Pt presents with an increased risk of falls Short Term Goal (STG) Pt to score 43/56 on Austin to demonstrate decreased risk of falls STG Duration 12/18/20 Dialer Goal (LTG) Pt to score 17/24 on DGI to demonstrate decreased risk of falls LTG Duration 01/18/21 Assessment Summary Assessment Pt presents with signs and symptoms consistent with weakness and increased falls risk secondary to deconditioning. Pt's dementia is a significant barrier to rehabilitation, repeated questions and statements multiple times within seconds. Due to pt largely being quarantined at [facility], carry- over for any sort of home program is very unlikely. Skilled therapy may be able to provide some improved stability and strength, but it is unclear how much pt will be able to participate in any sort of ongoing rehabilitation program. Physical Therapy Plan Frequency and Duration Frequency of Treatment 2x/Week Duration of Treatment Two months Plan of Care Start Date 11/17/20 Plan of Care End Date 12/18/20 Therapeutic Interventions Therapeutic Interventions Balance Training,Gait Training ,Home Exercise Program, Neuromuscular Re-education, Patient/Caregiver Education, Self-Care/Home Management, Therapeutic Activities, Therapeutic Exercises Next Visit Focus/Plan Next Note Type Treatment Note Next Visit Plan LE strengthening, balance training, NMR
--- NOTE | 2020-11-17 13:47 | PT.OPPOC ---
Physical, Occupational & Speech Therapy At [facility] Current Diagnoses Other abnormalities of gait and mobility (11/17/20) Repeated falls (11/17/20) Weakness (11/17/20) History of falling (11/17/20) Visit Care Team Role Provider Type Arianna Berg MD Attending Provider Physician Primary Care Provider Referring Provider Specialty: [facility] Address: [address] [place] [address], [facility] [place], [facility] Email: Plan Of Care PT-OP-T Assessment and Plan Start: 11/17/20 13:19 Freq: Status: Active Protocol: Document 11/17/20 10:40 DCW (Rec: 11/17/20 13:44 DCW [id number]) Physical Therapy Assessment Rehab Potential Rehabilitation Potential Fair Evaluation Complexity Number of Personal Factors/Comorbidities 1-2 Number of Body Systems Impaired 3 Clinical Presentation at Evaluation Unstable Impairments Impairments Activity Tolerance,Balance, Coordination,Functional Activities,Gait,Strength Other Concerns Fall Risk Yes, per Austin (36/56) and DGI (10/18) Barriers to Rehabilitation Dementia, Falls Goals Two Impairment LE weakness limits pt stability Watch Guard Gate Goal (LTG) Pt to demonstrate MMT B LE 4-/ 5 or greater LTG Duration 01/18/21 One Impairment Pt presents with an increased risk of falls Short Term Goal (STG) Pt to score 43/56 on Austin to demonstrate decreased risk of falls STG Duration 12/18/20 Watch Guard Gate Goal (LTG) Pt to score 17/24 on DGI to demonstrate decreased risk of falls LTG Duration 01/18/21 Assessment Summary Assessment Pt presents with signs and symptoms consistent with weakness and increased falls risk secondary to deconditioning. Pt's dementia is a significant barrier to rehabilitation, repeated questions and statements multiple times within seconds. Due to pt largely being quarantined at [facility], carry- over for any sort of home program is very unlikely. Skilled therapy may be able to provide some improved stability and strength, but it is unclear how much pt will be able to participate in any sort of ongoing rehabilitation program. Physical Therapy Plan Frequency and Duration Frequency of Treatment 2x/Week Duration of Treatment Two months Plan of Care Start Date 11/17/20 Plan of Care End Date 12/18/20 Therapeutic Interventions Therapeutic Interventions Balance Training,Gait Training ,Home Exercise Program, Neuromuscular Re-education, Patient/Caregiver Education, Self-Care/Home Management, Therapeutic Activities, Therapeutic Exercises Next Visit Focus/Plan Next Note Type Treatment Note Next Visit Plan LE strengthening, balance training, NMR Plan of Care Dates Plan of Care Start Date 11/17/20 Plan of Care End Date 12/18/20 Electronically Signed by: Sourav Varma, PT 11/17/20 [id number] Please Sign and Return: I have reviewed this Plan of Care and certify that the skilled therapy services above are required to meet the patient?s needs. Physician Signature Date Printed Name and Credentials Clinical Instructor Signature Printed Name and Credentials
--- NOTE | 2020-11-24 13:10 | PT-OP ANOTE ---
Pt's appt was cancelled by Moni, Rehab Ins rep, today due to no authorization. Moni reported pt will call ins to verify coverage and get new authorizatoin and let us know. Her next scheduled appt is 11/29/20, has 4 consecutive appts schedule with FINANCIAL UNDERWRITER Nadya before follows up with PTDoug.
--- NOTE | 2020-11-29 09:55 | PT-OP ANOTE ---
Pt did not show for today's appt, bridget Flynn was in attendance to assist with cognitive and physical assist needed for safe transition during appt's success. KILN TESTER called and left message for Cristy, Dental Detail Representative, to call us back for feedback on reasoning for missed appt today. KILN TESTER recommended calling to let us and Rina (coming from [place] for appt) know if patient is unable to make appt as early as possible but that is important to attend PT for benefits being referred for. Suggested please be aware to coordinate transportation to assist her arrival 5-10 min prior to appt time.
--- NOTE | 2020-12-01 13:45 | PT.OTN ---
Current Diagnoses Other abnormalities of gait and mobility (12/01/20) Repeated falls (12/01/20) Weakness (12/01/20) History of falling (12/01/20) Physical Therapy Treatment Note PT-OP-A Visit Information Start: 11/17/20 13:19 Freq: Status: Active Protocol: Document 12/01/20 13:04 SP (Rec: 12/01/20 13:50 SP [id number]) Out-Patient Physical Therapy Visit Information Visit Information Visit Type Treatment Note Visit Start Time 13:04 Visit Stop Time 13:45 Total Visit Minutes 41 Visit Number 2 Number of COMPLAINT EVALUATION OFFICER Visits 1 PT-OP-B Current Condition Start: 11/17/20 13:19 Freq: Status: Active Protocol: Document 11/17/20 10:40 DCW (Rec: 11/17/20 13:44 DCW [id number]) Current Condition History of Current Condition Onset Date 10 months Current Complaints Deconditioning, fall history History of Current Condition Pt is an 85 year old female with a recent history of falls and deconditioning. Pt's cxtjxiro-nz-[id number] attends today' s evaluation due to pt's severe dementia. Pt is very sweet, however is confused about everything and is unable to answer any questions regarding her limitations. DiL states that 10 months ago, pt was living in an assisted living community in [place], and during the Covid shut-down , was essentially stuck in her room for 6 months. Pt unfortunately suffered a significant decline in function over that time, and had minimal activity or movement. Four months ago, Pt' s son and gotykvhu-gd-tdf moved the pt to [place] to be closer to family, and pt is currently living in [facility]. Pt was doing slightly better, because she was able to move around more, but was still weak and experiencing multiple falls. Unfortunately, [facility] had a covid outbreak recently, which meant pt was once again stuck in her room for an extended period of time , and once again declined in function. Pt insists that she is doing fine and has not had any falls, however she is a very unreliable historian due to her memory. Treatment Goals Patient/Caregiver Goals Decrease falls, improve mobility and strength PT-OP-C Subjective Start: 11/17/20 13:19 Freq: Status: Active Protocol: Document 12/01/20 13:04 SP (Rec: 12/01/20 13:50 SP [id number]) OP-PT Subjective Patient Comments Patient Comments I am not sure why I am here. Pt's daughter pablo reminded in PT for strength and balance improvements. Oh ok.. PT-OP-D Balance Start: 11/17/20 13:19 Freq: Status: Active Protocol: Document 11/17/20 10:40 DCW (Rec: 11/17/20 13:44 DCW [id number]) OP-PT Balance Assessment Sitting Balance Static Sitting Balance Ability Normal Dynamic Sitting Balance Ability Normal Standing Balance Static Standing Balance Ability Fair Dynamic Standing Balance Ability Fair Device Used None Balance Tests Austin Balance Test Austin Balance Test Score 36/56 Austin Impairment Rating 20 to 39% Impaired (Score 34- 44) Austin Balance Assessment Evaluation Sitting to Standing Ability Independent w/out Hands Unsupported Stance Safely- 2 minutes Sitting Unsupported, Feet on Floor Safely- 2 minutes Standing to Sitting Ability Assist, Use Legs on Chair Transfer Ability Supervision, Verbal Cues Unsupported Stance- Eyes Closed Supervision, 10 seconds Unsupported Stance- Eyes Open Assist to attain, 15 secs Reaching Forward Standing Safely, 5 inches Pick- Up Object From Floor Supervision Look Behind Shoulder - Standing Turns Sideways Only Turning 360 Degrees Turns slowly, but safely Unsupported Stance, Alternating Feet on 4 Steps w/Supervision Stair Unsupported Tandem Stance Small Step- 30 seconds Unilateral Leg Stance Lifts Leg/Holds > 3 secs Total Score Austin Total Score (out of 56 points) 36 Austin Impairment Rating 20 to 39% Impaired (Score 34- 44) Jones Fall Scale Copyright Permission PT-OP-E Functional Tests Start: 11/17/20 13:19 Freq: Status: Active Protocol: Document 11/17/20 10:40 DCW (Rec: 11/17/20 13:44 DCW [id number]) Functional Tests Dynamic Gait Index (DGI) Score 10/18 DGI Impairment Rating 40 to <60% Impaired (Score 10- 14) PT-OP-M Strength Start: 11/17/20 13:44 Freq: Status: Active Protocol: Document 11/17/20 10:40 DCW (Rec: 11/17/20 13:46 DCW [id number]) Hip Strength Hip Manual Muscle Testing Right Flexion (L2) 4- Good- Abduction 4- Good- Adduction 4- Good- Left Flexion (L2) 3+ Fair+ Abduction 4- Good- Adduction 4- Good- Knee Strength Knee Manual Muscle Testing Right Flexion (S2) 4 Good Extension (L3) 4- Good- Left Flexion (S2) 4 Good Extension (L3) 2+ Poor+ Ankle/Foot Strength Ankle and Foot Manual Muscle Testing Right Dorsiflexion (L4) 4- Good- Plantarflexion (S1) 4- Good- Left Dorsiflexion (L4) 4- Good- Plantarflexion (S1) 4- Good- PT-OP-Q Treatments Start: 11/17/20 13:19 Freq: Status: Active Protocol: Document 12/01/20 13:04 SP (Rec: 12/01/20 13:50 SP [id number]) Cardio Equipment Recumbent Elliptical (Biodex) Duration (Minutes) 5 Resistance 2 Seat Position 4 Other SPM 155 steps Gym Equipment Shuttle Recovery Unilat squat Resistance 12# Reps/Time x10 B squat Resistance 12# Reps/Time 2x10 Therapeutic Exercises Sitting Exercises LAQ Side bilateral Reps/Minutes 2x5 Comments add HEP Standing Exercises hip abd Side bilateral Reps/Minutes x10 Comments before needed use restroom- cued slow control sit to stand Standing Exercise Name arms across chest best for better hip hinge control Reps/Minutes 2x5 Comments added HEP Therapeutic Activity Therapeutic Activity sit<> court administrator bathroom and self hygiene Reps/Minutes 8 Comments assist needed for pant and brieft change mgt, self hygiene in sitting. PT-OP-T Assessment and Plan Start: 11/17/20 13:19 Freq: Status: Active Protocol: Document 12/01/20 13:04 SP (Rec: 12/01/20 13:50 SP [id number]) Physical Therapy Assessment Goals Two Impairment LE weakness limits pt stability Media Strategist Goal (LTG) Pt to demonstrate MMT B LE 4-/ 5 or greater LTG Duration 01/18/21 One Impairment Pt presents with an increased risk of falls Short Term Goal (STG) Pt to score 43/56 on Austin to demonstrate decreased risk of falls STG Duration 12/18/20 Media Strategist Goal (LTG) Pt to score 17/24 on DGI to demonstrate decreased risk of falls LTG Duration 01/18/21 Assessment Summary Assessment Pt is a very pleasant lady and good follow throught with ther ex requests, daughterinlaw attended for cognitive carry over, at times gets aggitated. Pt tolerated ther ex well, requires Max cuing and demonstration to follow. Pt required use of restroom and needed brief and supplies during visit, able to complete self hygiene in sitting but required assist for brief/pant change mgt. Provided HO for home, review HEP next tx and progress functional strength and eventually balance to decrease risk for falls. Pt requires rest breaks between reps/ set for tiring recovery. Physical Therapy Plan Frequency and Duration Frequency of Treatment 2x/Week Duration of Treatment Two months Plan of Care Start Date 11/17/20 Plan of Care End Date 12/18/20 Therapeutic Interventions Therapeutic Interventions Balance Training,Gait Training ,Home Exercise Program, Neuromuscular Re-education, Patient/Caregiver Education, Self-Care/Home Management, Therapeutic Activities, Therapeutic Exercises Next Visit Focus/Plan Next Note Type Treatment Note Next Visit Plan LE strengthening, balance training, NMR
--- NOTE | 2020-12-06 13:00 | PT.OTN ---
Current Diagnoses Other abnormalities of gait and mobility (12/06/20) Repeated falls (12/06/20) Weakness (12/06/20) History of falling (12/06/20) Physical Therapy Treatment Note PT-OP-A Visit Information Start: 11/17/20 13:19 Freq: Status: Active Protocol: Document 12/06/20 12:13 SP (Rec: 12/06/20 16:11 SP [id number]) Out-Patient Physical Therapy Visit Information Visit Information Visit Type Treatment Note Visit Start Time 12:13 Visit Stop Time 13:00 Total Visit Minutes 42 Visit Number 3 Number of COMMODITY BROKER Visits 2 PT-OP-B Current Condition Start: 11/17/20 13:19 Freq: Status: Active Protocol: Document 11/17/20 10:40 DCW (Rec: 11/17/20 13:44 DCW [id number]) Current Condition History of Current Condition Onset Date 10 months Current Complaints Deconditioning, fall history History of Current Condition Pt is an 85 year old female with a recent history of falls and deconditioning. Pt's ifnsoppy-eb-uef attends today' s evaluation due to pt's severe dementia. Pt is very sweet, however is confused about everything and is unable to answer any questions regarding her limitations. DiL states that 10 months ago, pt was living in an assisted living community in [place], and during the Covid shut-down , was essentially stuck in her room for 6 months. Pt unfortunately suffered a significant decline in function over that time, and had minimal activity or movement. Four months ago, Pt' s son and mwnqnqxd-vk-rts moved the pt to [place] to be closer to family, and pt is currently living in [facility]. Pt was doing slightly better, because she was able to move around more, but was still weak and experiencing multiple falls. Unfortunately, [facility] had a covid outbreak recently, which meant pt was once again stuck in her room for an extended period of time , and once again declined in function. Pt insists that she is doing fine and has not had any falls, however she is a very unreliable historian due to her memory. Treatment Goals Patient/Caregiver Goals Decrease falls, improve mobility and strength PT-OP-C Subjective Start: 11/17/20 13:19 Freq: Status: Active Protocol: Document 12/06/20 12:13 SP (Rec: 12/06/20 16:11 SP [id number]) OP-PT Subjective Patient Comments Patient Comments I am doing ok. PT-OP-D Balance Start: 11/17/20 13:19 Freq: Status: Active Protocol: Document 11/17/20 10:40 DCW (Rec: 11/17/20 13:44 DCW [id number]) OP-PT Balance Assessment Sitting Balance Static Sitting Balance Ability Normal Dynamic Sitting Balance Ability Normal Standing Balance Static Standing Balance Ability Fair Dynamic Standing Balance Ability Fair Device Used None Balance Tests Austin Balance Test Austin Balance Test Score 36/56 Austin Impairment Rating 20 to 39% Impaired (Score 34- 44) Austin Balance Assessment Evaluation Sitting to Standing Ability Independent w/out Hands Unsupported Stance Safely- 2 minutes Sitting Unsupported, Feet on Floor Safely- 2 minutes Standing to Sitting Ability Assist, Use Legs on Chair Transfer Ability Supervision, Verbal Cues Unsupported Stance- Eyes Closed Supervision, 10 seconds Unsupported Stance- Eyes Open Assist to attain, 15 secs Reaching Forward Standing Safely, 5 inches Pick- Up Object From Floor Supervision Look Behind Shoulder - Standing Turns Sideways Only Turning 360 Degrees Turns slowly, but safely Unsupported Stance, Alternating Feet on 4 Steps w/Supervision Stair Unsupported Tandem Stance Small Step- 30 seconds Unilateral Leg Stance Lifts Leg/Holds > 3 secs Total Score Austin Total Score (out of 56 points) 36 Austin Impairment Rating 20 to 39% Impaired (Score 34- 44) Jones Fall Scale Copyright Permission PT-OP-E Functional Tests Start: 11/17/20 13:19 Freq: Status: Active Protocol: Document 11/17/20 10:40 DCW (Rec: 11/17/20 13:44 DCW [id number]) Functional Tests Dynamic Gait Index (DGI) Score 10/18 DGI Impairment Rating 40 to <60% Impaired (Score 10- 14) PT-OP-M Strength Start: 11/17/20 13:44 Freq: Status: Active Protocol: Document 11/17/20 10:40 DCW (Rec: 11/17/20 13:46 DCW [id number]) Hip Strength Hip Manual Muscle Testing Right Flexion (L2) 4- Good- Abduction 4- Good- Adduction 4- Good- Left Flexion (L2) 3+ Fair+ Abduction 4- Good- Adduction 4- Good- Knee Strength Knee Manual Muscle Testing Right Flexion (S2) 4 Good Extension (L3) 4- Good- Left Flexion (S2) 4 Good Extension (L3) 2+ Poor+ Ankle/Foot Strength Ankle and Foot Manual Muscle Testing Right Dorsiflexion (L4) 4- Good- Plantarflexion (S1) 4- Good- Left Dorsiflexion (L4) 4- Good- Plantarflexion (S1) 4- Good- PT-OP-Q Treatments Start: 11/17/20 13:19 Freq: Status: Active Protocol: Document 12/06/20 12:13 SP (Rec: 12/06/20 16:11 SP [id number]) Cardio Equipment Recumbent Elliptical (Biodex) Duration (Minutes) 5 Resistance 2 Seat Position 4 Other SPM 52 Gym Equipment Shuttle Recovery Unilat squat Resistance 12# Reps/Time x10 B squat Resistance 25# Reps/Time 2x10 Sport Cord green Exercise Details f/b/s R and L Cord/Resistance green Reps/Duration 5 steps each direction Comments CG- Min A Therapeutic Exercises Standing Exercises hip ext Side bilateral Resistance rail Reps/Minutes 2x10 Comments cued upright posture with glut fac hip abd Side bilateral Resistance rail Reps/Minutes x2 reps before L HS discomfort so stopped Comments cued upright posture sit to stand Standing Exercise Name review next tx PT-OP-T Assessment and Plan Start: 11/17/20 13:19 Freq: Status: Active Protocol: Document 12/06/20 12:13 SP (Rec: 12/06/20 16:11 SP [id number]) Physical Therapy Assessment Goals Two Impairment LE weakness limits pt stability Harvest Contractor Goal (LTG) Pt to demonstrate MMT B LE 4-/ 5 or greater LTG Duration 01/18/21 One Impairment Pt presents with an increased risk of falls Short Term Goal (STG) Pt to score 43/56 on Austin to demonstrate decreased risk of falls STG Duration 12/18/20 Harvest Contractor Goal (LTG) Pt to score 17/24 on DGI to demonstrate decreased risk of falls LTG Duration 01/18/21 Assessment Summary Assessment Pt is very pleasant and agreeable to working with therapy. Kobe Flynn is very helpful for cognitive feedback assist during tx with patient at times needed. Requires Mod cuing for proper form and max for recall of shuttle revovery knee alignment and ther ex performed last tx. Initated balance activities today: hurdles and sport cord today with required CG- Min A via gait belt for support with cuing for COG over foot triangle JONATHAN with slow eccentric trailing LE. Pt stated that was hard but good work out today. Pt required rest break between balance activities for recovery. Physical Therapy Plan Frequency and Duration Frequency of Treatment 2x/Week Duration of Treatment Two months Plan of Care Start Date 11/17/20 Plan of Care End Date 12/18/20 Therapeutic Interventions Therapeutic Interventions Balance Training,Gait Training ,Home Exercise Program, Neuromuscular Re-education, Patient/Caregiver Education, Self-Care/Home Management, Therapeutic Activities, Therapeutic Exercises Next Visit Focus/Plan Next Note Type Treatment Note Next Visit Plan Assess response to last tx: hurdles, sport cord, HEP review. Next 2 tx's another family member will be here, Rina going out of town. Continue per PT POC: LE strengthening, balance training, NMR
--- NOTE | 2020-12-09 12:46 | PT.OTN ---
Current Diagnoses Other abnormalities of gait and mobility (12/09/20) Repeated falls (12/09/20) Weakness (12/09/20) History of falling (12/09/20) Physical Therapy Treatment Note PT-OP-A Visit Information Start: 11/17/20 13:19 Freq: Status: Active Protocol: Document 12/09/20 12:01 SP (Rec: 12/09/20 12:57 SP [id number]) Out-Patient Physical Therapy Visit Information Visit Information Visit Type Treatment Note Visit Note SPTA attended tx and assisted as needed. pt arrived 15 min early via [employer] transportation, daughter in law Rina not here today to meet her and son Roddy was late for tx, started tx early due to dementia and unawareness at times why attending. Visit Start Time 12:01 Visit Stop Time 12:46 Total Visit Minutes 45 Visit Number 4 Number of REGIONAL ECONOMIC LIAISON Visits 3 PT-OP-B Current Condition Start: 11/17/20 13:19 Freq: Status: Active Protocol: Document 11/17/20 10:40 DCW (Rec: 11/17/20 13:44 DCW [id number]) Current Condition History of Current Condition Onset Date 10 months Current Complaints Deconditioning, fall history History of Current Condition Pt is an 85 year old female with a recent history of falls and deconditioning. Pt's zwgajqju-cg-dyc attends today' s evaluation due to pt's severe dementia. Pt is very sweet, however is confused about everything and is unable to answer any questions regarding her limitations. DiL states that 10 months ago, pt was living in an assisted living community in [place], and during the Covid shut-down , was essentially stuck in her room for 6 months. Pt unfortunately suffered a significant decline in function over that time, and had minimal activity or movement. Four months ago, Pt' s son and ljtnttni-kj-tkd moved the pt to [place] to be closer to family, and pt is currently living in [facility]. Pt was doing slightly better, because she was able to move around more, but was still weak and experiencing multiple falls. Unfortunately, [facility] had a covid outbreak recently, which meant pt was once again stuck in her room for an extended period of time , and once again declined in function. Pt insists that she is doing fine and has not had any falls, however she is a very unreliable historian due to her memory. Treatment Goals Patient/Caregiver Goals Decrease falls, improve mobility and strength PT-OP-C Subjective Start: 11/17/20 13:19 Freq: Status: Active Protocol: Document 12/09/20 12:01 SP (Rec: 12/09/20 12:57 SP [id number]) OP-PT Subjective Patient Comments Patient Comments Pt was seate in pt waiting room for pt with no family asisst today and did well. Pt reported tired after last tx but did ok. PT-OP-D Balance Start: 11/17/20 13:19 Freq: Status: Active Protocol: Document 11/17/20 10:40 DCW (Rec: 11/17/20 13:44 DCW [id number]) OP-PT Balance Assessment Sitting Balance Static Sitting Balance Ability Normal Dynamic Sitting Balance Ability Normal Standing Balance Static Standing Balance Ability Fair Dynamic Standing Balance Ability Fair Device Used None Balance Tests Austin Balance Test Austin Balance Test Score 36/56 Austin Impairment Rating 20 to 39% Impaired (Score 34- 44) Austin Balance Assessment Evaluation Sitting to Standing Ability Independent w/out Hands Unsupported Stance Safely- 2 minutes Sitting Unsupported, Feet on Floor Safely- 2 minutes Standing to Sitting Ability Assist, Use Legs on Chair Transfer Ability Supervision, Verbal Cues Unsupported Stance- Eyes Closed Supervision, 10 seconds Unsupported Stance- Eyes Open Assist to attain, 15 secs Reaching Forward Standing Safely, 5 inches Pick- Up Object From Floor Supervision Look Behind Shoulder - Standing Turns Sideways Only Turning 360 Degrees Turns slowly, but safely Unsupported Stance, Alternating Feet on 4 Steps w/Supervision Stair Unsupported Tandem Stance Small Step- 30 seconds Unilateral Leg Stance Lifts Leg/Holds > 3 secs Total Score Austin Total Score (out of 56 points) 36 Austin Impairment Rating 20 to 39% Impaired (Score 34- 44) Jones Fall Scale Copyright Permission PT-OP-E Functional Tests Start: 11/17/20 13:19 Freq: Status: Active Protocol: Document 11/17/20 10:40 DCW (Rec: 11/17/20 13:44 DCW [id number]) Functional Tests Dynamic Gait Index (DGI) Score 10/18 DGI Impairment Rating 40 to <60% Impaired (Score 10- 14) PT-OP-M Strength Start: 11/17/20 13:44 Freq: Status: Active Protocol: Document 11/17/20 10:40 DCW (Rec: 11/17/20 13:46 DCW [id number]) Hip Strength Hip Manual Muscle Testing Right Flexion (L2) 4- Good- Abduction 4- Good- Adduction 4- Good- Left Flexion (L2) 3+ Fair+ Abduction 4- Good- Adduction 4- Good- Knee Strength Knee Manual Muscle Testing Right Flexion (S2) 4 Good Extension (L3) 4- Good- Left Flexion (S2) 4 Good Extension (L3) 2+ Poor+ Ankle/Foot Strength Ankle and Foot Manual Muscle Testing Right Dorsiflexion (L4) 4- Good- Plantarflexion (S1) 4- Good- Left Dorsiflexion (L4) 4- Good- Plantarflexion (S1) 4- Good- PT-OP-Q Treatments Start: 11/17/20 13:19 Freq: Status: Active Protocol: Document 12/09/20 12:01 SP (Rec: 12/09/20 12:57 SP [id number]) Cardio Equipment Recumbent Elliptical (Biodex) Duration (Minutes) 5 Resistance 2 Seat Position 4 Other SPM 95 Gym Equipment Shuttle Recovery Unilat squat Resistance 12# Reps/Time x10 B squat Resistance 25# Reps/Time 2x10 Therapeutic Exercises Standing Exercises heel raises Standing Exercise Name added today Side bilateral Reps/Minutes x10 hip ext Standing Exercise Name review Side bilateral Resistance rail Reps/Minutes 2x10 Comments cued upright posture with glut fac sit to stand Standing Exercise Name arms across chest- review Equipment Used chair 18 Reps/Minutes 2x5 Comments next tx assess reps 20 sec Neuro Re-Education Treatment Balance Activities hurdles Details f/side stepping Surface table Equipment rail PRN Reps/Duration 5 x 2 laps each Comments CG-Annika via GB SLS Surface stable Equipment rail Comments R 3, 5, 9 L 5, 5, 6 stationary balance stable/ uneven Details WBOS, NBOS, Stagger Surface stable Equipment rail Comments 1. stationary 2. head turns PT-OP-T Assessment and Plan Start: 11/17/20 13:19 Freq: Status: Active Protocol: Document 12/09/20 12:01 SP (Rec: 12/09/20 12:57 SP [id number]) Physical Therapy Assessment Goals Two Impairment LE weakness limits pt stability Squeak Rattle And Leak Repairer Goal (LTG) Pt to demonstrate MMT B LE 4-/ 5 or greater LTG Duration 01/18/21 One Impairment Pt presents with an increased risk of falls Short Term Goal (STG) Pt to score 43/56 on Austin to demonstrate decreased risk of falls STG Duration 12/18/20 Squeak Rattle And Leak Repairer Goal (LTG) Pt to score 17/24 on DGI to demonstrate decreased risk of falls LTG Duration 01/18/21 Assessment Summary Assessment Pt reponded well to tx. Pt requires rest breaks between activities for rest recovery tiring and noted increased breath rate. Max cues for recall and proper form. Pt improved with balance SLS time end of tx post hurdles and assessed SLS timing baseline. Physical Therapy Plan Frequency and Duration Frequency of Treatment 2x/Week Duration of Treatment Two months Plan of Care Start Date 11/17/20 Plan of Care End Date 12/18/20 Therapeutic Interventions Therapeutic Interventions Balance Training,Gait Training ,Home Exercise Program, Neuromuscular Re-education, Patient/Caregiver Education, Self-Care/Home Management, Therapeutic Activities, Therapeutic Exercises Next Visit Focus/Plan Next Note Type Treatment Note Next Visit Plan Assess response to last tx: hurdles, HEP review, added SLS . Next tx assess sit to stands reps/ 20 sec. Continue per PT POC: LE strengthening, balance training, NMR
--- NOTE | 2020-12-14 14:37 | PT.OTN ---
Current Diagnoses Other abnormalities of gait and mobility (12/14/20) Repeated falls (12/14/20) Weakness (12/14/20) History of falling (12/14/20) Physical Therapy Treatment Note PT-OP-A Visit Information Start: 11/17/20 13:19 Freq: Status: Active Protocol: Document 12/14/20 13:45 DCW (Rec: 12/14/20 14:37 DCW [id number]) Out-Patient Physical Therapy Visit Information Visit Information Visit Type Treatment Note Visit Note New POC next visit Visit Start Time 13:45 Visit Stop Time 14:30 Total Visit Minutes 45 Visit Number 5 Number of REGISTERED SALES ASSISTANT Visits 0 PT-OP-B Current Condition Start: 11/17/20 13:19 Freq: Status: Active Protocol: Document 11/17/20 10:40 DCW (Rec: 11/17/20 13:44 DCW [id number]) Current Condition History of Current Condition Onset Date 10 months Current Complaints Deconditioning, fall history History of Current Condition Pt is an 85 year old female with a recent history of falls and deconditioning. Pt's [id number] attends today' s evaluation due to pt's severe dementia. Pt is very sweet, however is confused about everything and is unable to answer any questions regarding her limitations. DiL states that 10 months ago, pt was living in an assisted living community in [place], and during the Covid shut-down , was essentially stuck in her room for 6 months. Pt unfortunately suffered a significant decline in function over that time, and had minimal activity or movement. Four months ago, Pt' s son and riodqmul-be-obt moved the pt to [place] to be closer to family, and pt is currently living in [facility]. Pt was doing slightly better, because she was able to move around more, but was still weak and experiencing multiple falls. Unfortunately, [facility] had a covid outbreak recently, which meant pt was once again stuck in her room for an extended period of time , and once again declined in function. Pt insists that she is doing fine and has not had any falls, however she is a very unreliable historian due to her memory. Treatment Goals Patient/Caregiver Goals Decrease falls, improve mobility and strength PT-OP-C Subjective Start: 11/17/20 13:19 Freq: Status: Active Protocol: Document 12/14/20 13:45 DCW (Rec: 12/14/20 14:37 DCW [id number]) OP-PT Subjective Patient Comments Patient Comments Pt had a fall on 12/11/20, was seen in the ED, there was discussion about transferring to [facility], but ended up feeling that she was safe to return home. Presents with severe brusing along the left side of her face. PT-OP-D Balance Start: 11/17/20 13:19 Freq: Status: Active Protocol: Document 11/17/20 10:40 DCW (Rec: 11/17/20 13:44 DCW [id number]) OP-PT Balance Assessment Sitting Balance Static Sitting Balance Ability Normal Dynamic Sitting Balance Ability Normal Standing Balance Static Standing Balance Ability Fair Dynamic Standing Balance Ability Fair Device Used None Balance Tests Austin Balance Test Austin Balance Test Score 36/56 Austin Impairment Rating 20 to 39% Impaired (Score 34- 44) Austin Balance Assessment Evaluation Sitting to Standing Ability Independent w/out Hands Unsupported Stance Safely- 2 minutes Sitting Unsupported, Feet on Floor Safely- 2 minutes Standing to Sitting Ability Assist, Use Legs on Chair Transfer Ability Supervision, Verbal Cues Unsupported Stance- Eyes Closed Supervision, 10 seconds Unsupported Stance- Eyes Open Assist to attain, 15 secs Reaching Forward Standing Safely, 5 inches Pick- Up Object From Floor Supervision Look Behind Shoulder - Standing Turns Sideways Only Turning 360 Degrees Turns slowly, but safely Unsupported Stance, Alternating Feet on 4 Steps w/Supervision Stair Unsupported Tandem Stance Small Step- 30 seconds Unilateral Leg Stance Lifts Leg/Holds > 3 secs Total Score Austin Total Score (out of 56 points) 36 Austin Impairment Rating 20 to 39% Impaired (Score 34- 44) Jones Fall Scale Copyright Permission PT-OP-E Functional Tests Start: 11/17/20 13:19 Freq: Status: Active Protocol: Document 11/17/20 10:40 DCW (Rec: 11/17/20 13:44 DCW [id number]) Functional Tests Dynamic Gait Index (DGI) Score 24 DGI Impairment Rating 40 to <60% Impaired (Score 10- 14) PT-OP-M Strength Start: 11/17/20 13:44 Freq: Status: Active Protocol: Document 11/17/20 10:40 DCW (Rec: 11/17/20 13:46 DCW [id number]) Hip Strength Hip Manual Muscle Testing Right Flexion (L2) 4- Good- Abduction 4- Good- Adduction 4- Good- Left Flexion (L2) 3+ Fair+ Abduction 4- Good- Adduction 4- Good- Knee Strength Knee Manual Muscle Testing Right Flexion (S2) 4 Good Extension (L3) 4- Good- Left Flexion (S2) 4 Good Extension (L3) 2+ Poor+ Ankle/Foot Strength Ankle and Foot Manual Muscle Testing Right Dorsiflexion (L4) 4- Good- Plantarflexion (S1) 4- Good- Left Dorsiflexion (L4) 4- Good- Plantarflexion (S1) 4- Good- PT-OP-Q Treatments Start: 11/17/20 13:19 Freq: Status: Active Protocol: Document 12/14/20 13:45 DCW (Rec: 12/14/20 14:37 DCW [id number]) Cardio Equipment Recumbent Elliptical (BiodCollusion) Duration (Minutes) 5 Resistance 2 Seat Position 2 Gym Equipment Shuttle Recovery Unilat squat Resistance 12# Reps/Time x10 B squat Resistance 25# Reps/Time 2x10 Shuttle Balance Green Details WBOS (EO/EC), Head turns, Turns\ Therapeutic Exercises Standing Exercises 1 Standing Exercise Name Toe-taps Side bilateral Resistance 1# Equipment Used 6 step heel raises Side bilateral Reps/Minutes 2x10 sit to stand Standing Exercise Name Sit<->stand Reps/Minutes x10 Comments Vcs for slower and control Other Exercises 1 Other Exercise Name Resisted side-stepping Resistance Yellow Equipment Used T-band PT-OP-T Assessment and Plan Start: 11/17/20 13:19 Freq: Status: Active Protocol: Document 12/14/20 13:45 DCW (Rec: 12/14/20 14:37 DCW [id number]) Physical Therapy Assessment Impairments Impairments Activity Tolerance,Balance, Coordination,Functional Activities,Gait,Strength Goals Two Impairment LE weakness limits pt stability Long-Term Goal (LTG) Pt to demonstrate MMT B LE 4-/ 5 or greater LTG Duration 01/18/21 One Impairment Pt presents with an increased risk of falls Short Term Goal (STG) Pt to score 43/56 on Austin to demonstrate decreased risk of falls STG Duration 12/18/20 Long-Term Goal (LTG) Pt to score 17/24 on DGI to demonstrate decreased risk of falls LTG Duration 01/18/21 Assessment Summary Assessment Pt did surprisingly well using the shuttle balance, admitted to being tired throughout the session, but worked very hard with all activities. Pt does not appear to be suffering any lingering effects from her fall on Saturday. Physical Therapy Plan Frequency and Duration Frequency of Treatment 2x/Week Duration of Treatment Two months Plan of Care Start Date 11/17/20 Plan of Care End Date 12/18/20 Therapeutic Interventions Therapeutic Interventions Balance Training,Gait Training ,Home Exercise Program, Neuromuscular Re-education, Patient/Caregiver Education, Self-Care/Home Management, Therapeutic Activities, Therapeutic Exercises Next Visit Focus/Plan Next Note Type Progress Note Next Visit Plan Prog note for new POC
--- NOTE | 2020-12-16 14:33 | PT.OTN ---
Current Diagnoses Other abnormalities of gait and mobility (12/16/20) Repeated falls (12/16/20) Weakness (12/16/20) History of falling (12/16/20) Physical Therapy Treatment Note PT-OP-A Visit Information Start: 11/17/20 13:19 Freq: Status: Active Protocol: Document 12/16/20 14:34 LD (Rec: 12/16/20 15:05 LD [id number]) Out-Patient Physical Therapy Visit Information Visit Information Visit Type Treatment Note Visit Note New POC next visit. POC expires 12/18. ORI Perez led treatment and supervised by ZULEMA Covington. Visit Start Time 13:55 Visit Stop Time 14:33 Total Visit Minutes 38 Visit Number 6 Number of EMISSIONS TESTING AND REPAIR TECHNICIAN Visits 1 PT-OP-B Current Condition Start: 11/17/20 13:19 Freq: Status: Active Protocol: Document 11/17/20 10:40 DCW (Rec: 11/17/20 13:44 DCW [id number]) Current Condition History of Current Condition Onset Date 10 months Current Complaints Deconditioning, fall history History of Current Condition Pt is an 85 year old female with a recent history of falls and deconditioning. Pt's [id number] attends today' s evaluation due to pt's severe dementia. Pt is very sweet, however is confused about everything and is unable to answer any questions regarding her limitations. DiL states that 10 months ago, pt was living in an assisted living community in [place], and during the Covid shut-down , was essentially stuck in her room for 6 months. Pt unfortunately suffered a significant decline in function over that time, and had minimal activity or movement. Four months ago, Pt' s son and jhnxyiup-rb-sxo moved the pt to [place] to be closer to family, and pt is currently living in [facility]. Pt was doing slightly better, because she was able to move around more, but was still weak and experiencing multiple falls. Unfortunately, [facility] had a covid outbreak recently, which meant pt was once again stuck in her room for an extended period of time , and once again declined in function. Pt insists that she is doing fine and has not had any falls, however she is a very unreliable historian due to her memory. Treatment Goals Patient/Caregiver Goals Decrease falls, improve mobility and strength PT-OP-C Subjective Start: 11/17/20 13:19 Freq: Status: Active Protocol: Document 12/16/20 14:34 LD (Rec: 12/16/20 15:05 LD [id number]) OP-PT Subjective Patient Comments Patient Comments Pt stated that they need to do more exercises where she lives. PT-OP-D Balance Start: 11/17/20 13:19 Freq: Status: Active Protocol: Document 11/17/20 10:40 DCW (Rec: 11/17/20 13:44 DCW [id number]) OP-PT Balance Assessment Sitting Balance Static Sitting Balance Ability Normal Dynamic Sitting Balance Ability Normal Standing Balance Static Standing Balance Ability Fair Dynamic Standing Balance Ability Fair Device Used None Balance Tests Austin Balance Test Austin Balance Test Score 36/56 Austin Impairment Rating 20 to 39% Impaired (Score 34- 44) Austin Balance Assessment Evaluation Sitting to Standing Ability Independent w/out Hands Unsupported Stance Safely- 2 minutes Sitting Unsupported, Feet on Floor Safely- 2 minutes Standing to Sitting Ability Assist, Use Legs on Chair Transfer Ability Supervision, Verbal Cues Unsupported Stance- Eyes Closed Supervision, 10 seconds Unsupported Stance- Eyes Open Assist to attain, 15 secs Reaching Forward Standing Safely, 5 inches Pick- Up Object From Floor Supervision Look Behind Shoulder - Standing Turns Sideways Only Turning 360 Degrees Turns slowly, but safely Unsupported Stance, Alternating Feet on 4 Steps w/Supervision Stair Unsupported Tandem Stance Small Step- 30 seconds Unilateral Leg Stance Lifts Leg/Holds > 3 secs Total Score Austin Total Score (out of 56 points) 36 Austin Impairment Rating 20 to 39% Impaired (Score 34- 44) Jones Fall Scale Copyright Permission PT-OP-E Functional Tests Start: 11/17/20 13:19 Freq: Status: Active Protocol: Document 11/17/20 10:40 DCW (Rec: 11/17/20 13:44 DCW [id number]) Functional Tests Dynamic Gait Index (DGI) Score 10/18 DGI Impairment Rating 40 to <60% Impaired (Score 10- 14) PT-OP-M Strength Start: 11/17/20 13:44 Freq: Status: Active Protocol: Document 11/17/20 10:40 DCW (Rec: 11/17/20 13:46 DCW [id number]) Hip Strength Hip Manual Muscle Testing Right Flexion (L2) 4- Good- Abduction 4- Good- Adduction 4- Good- Left Flexion (L2) 3+ Fair+ Abduction 4- Good- Adduction 4- Good- Knee Strength Knee Manual Muscle Testing Right Flexion (S2) 4 Good Extension (L3) 4- Good- Left Flexion (S2) 4 Good Extension (L3) 2+ Poor+ Ankle/Foot Strength Ankle and Foot Manual Muscle Testing Right Dorsiflexion (L4) 4- Good- Plantarflexion (S1) 4- Good- Left Dorsiflexion (L4) 4- Good- Plantarflexion (S1) 4- Good- PT-OP-Q Treatments Start: 11/17/20 13:19 Freq: Status: Active Protocol: Document 12/16/20 14:34 LD (Rec: 12/16/20 15:05 LD [id number]) Gym Equipment Shuttle Recovery Unilat squat Resistance 12# Shuttle Recovery Platform Stable Reps/Time 10x B squat Resistance 25# Reps/Time 2x10 Therapeutic Exercises Standing Exercises Step ups Standing Exercise Name Forward, lateral Side bilateral Resistance 2# Equipment Used 6 step, rail 1 Standing Exercise Name Toe-taps Side bilateral Resistance 1# , 2# Equipment Used 6 step, rail hip ext Standing Exercise Name review Side bilateral Resistance rail Equipment Used 1# , 2# Reps/Minutes 2x10 Comments cued upright posture with glut fac hip abd Side bilateral Resistance rail Equipment Used 1#, 2# Reps/Minutes 2x10 Comments cued upright posture sit to stand Standing Exercise Name Sit<->stand Equipment Used chair 18 Reps/Minutes x10 Comments Vcs for slower and control Neuro Re-Education Treatment Balance Activities hurdles Details f/side stepping Surface table Equipment rail PRN Reps/Duration 5 x 2 laps each Comments CG-Annika via GB PT-OP-T Assessment and Plan Start: 11/17/20 13:19 Freq: Status: Active Protocol: Document 12/16/20 14:34 LD (Rec: 12/16/20 15:05 LD [id number]) Physical Therapy Assessment Impairments Impairments Activity Tolerance,Balance, Coordination,Functional Activities,Gait,Strength Goals Two Impairment LE weakness limits pt stability Custodial Goal (LTG) Pt to demonstrate MMT B LE 4-/ 5 or greater LTG Duration 01/18/21 One Impairment Pt presents with an increased risk of falls Short Term Goal (STG) Pt to score 43/56 on Austin to demonstrate decreased risk of falls STG Duration 12/18/20 Custodial Goal (LTG) Pt to score 17/24 on DGI to demonstrate decreased risk of falls LTG Duration 01/18/21 Assessment Summary Assessment Pt tolerated well with increased weight for toe taps and hip ext and abd. Max cues for recall. Added step ups and overs, motor planning each step. Physical Therapy Plan Frequency and Duration Frequency of Treatment 2x/Week Duration of Treatment Two months Plan of Care Start Date 11/17/20 Plan of Care End Date 12/18/20 Therapeutic Interventions Therapeutic Interventions Balance Training,Gait Training ,Home Exercise Program, Neuromuscular Re-education, Patient/Caregiver Education, Self-Care/Home Management, Therapeutic Activities, Therapeutic Exercises Next Visit Focus/Plan Next Note Type Treatment Note Next Visit Plan Assess response to last tx: HEP review, w/ increased weight on toe taps and hip ext and abd, added step ups. Continue per POC: LE strengthening, balance training, NMR.
--- NOTE | 2020-12-22 12:45 | PT.OTN ---
Current Diagnoses Other abnormalities of gait and mobility (12/22/20) Repeated falls (12/22/20) Weakness (12/22/20) History of falling (12/22/20) Physical Therapy Treatment Note PT-OP-A Visit Information Start: 11/17/20 13:19 Freq: Status: Active Protocol: Document 12/22/20 12:00 DCW (Rec: 12/22/20 12:45 DCW [id number]) Out-Patient Physical Therapy Visit Information Visit Information Visit Type Progress Note Visit Start Time 12:00 Visit Stop Time 12:45 Total Visit Minutes 45 Visit Number 7 Number of VULCANIZER Visits 0 Evaluation Information Evaluation Date 11/17/20 PT-OP-B Current Condition Start: 11/17/20 13:19 Freq: Status: Active Protocol: Document 11/17/20 10:40 DCW (Rec: 11/17/20 13:44 DCW [id number]) Current Condition History of Current Condition Onset Date 10 months Current Complaints Deconditioning, fall history History of Current Condition Pt is an 85 year old female with a recent history of falls and deconditioning. Pt's evzhzdnl-ac-ysi attends today' s evaluation due to pt's severe dementia. Pt is very sweet, however is confused about everything and is unable to answer any questions regarding her limitations. DiL states that 10 months ago, pt was living in an assisted living community in [place], and during the Covid shut-down , was essentially stuck in her room for 6 months. Pt unfortunately suffered a significant decline in function over that time, and had minimal activity or movement. Four months ago, Pt' s son and dphoogqn-zc-oot moved the pt to [place] to be closer to family, and pt is currently living in [facility]. Pt was doing slightly better, because she was able to move around more, but was still weak and experiencing multiple falls. Unfortunately, [facility] had a covid outbreak recently, which meant pt was once again stuck in her room for an extended period of time , and once again declined in function. Pt insists that she is doing fine and has not had any falls, however she is a very unreliable historian due to her memory. Treatment Goals Patient/Caregiver Goals Decrease falls, improve mobility and strength PT-OP-C Subjective Start: 11/17/20 13:19 Freq: Status: Active Protocol: Document 12/22/20 12:00 DCW (Rec: 12/22/20 12:45 DCW [id number]) OP-PT Subjective Patient Comments Patient Comments Pt still very concerned regarding her fall 11 days ago , mainly because she cannot remember it happening. PT-OP-D Balance Start: 11/17/20 13:19 Freq: Status: Active Protocol: Document 12/22/20 12:00 DCW (Rec: 12/22/20 12:26 DCW [id number]) OP-PT Balance Assessment Sitting Balance Static Sitting Balance Ability Normal Dynamic Sitting Balance Ability Normal Standing Balance Static Standing Balance Ability Good Dynamic Standing Balance Ability Fair Balance Tests Austin Balance Test Austin Balance Test Score 42/56 Austin Impairment Rating 20 to 39% Impaired (Score 34- 44) Austin Balance Assessment Evaluation Sitting to Standing Ability Independent w/out Hands Unsupported Stance Safely- 2 minutes Sitting Unsupported, Feet on Floor Safely- 2 minutes Standing to Sitting Ability Safely, Minimal Hand Use Transfer Ability Supervision, Verbal Cues Unsupported Stance- Eyes Closed Safely, 10 seconds Unsupported Stance- Eyes Open Assist to attain, 15 secs Reaching Forward Standing Safely, 5 inches Pick- Up Object From Floor Supervision Look Behind Shoulder - Standing Shifts Weight Unilateral Turning 360 Degrees Turns , < 4 secs Unsupported Stance, Alternating Feet on 4 Steps w/Supervision Stair Unsupported Tandem Stance Holds Tandem- 30 seconds Unilateral Leg Stance Lifts Leg/Holds > 3 secs Total Score Austin Total Score (out of 56 points) 42 Austin Impairment Rating 20 to 39% Impaired (Score 34- 44) Jones Fall Scale Copyright Permission PT-OP-E Functional Tests Start: 11/17/20 13:19 Freq: Status: Active Protocol: Document 12/22/20 12:00 DCW (Rec: 12/22/20 12:26 DCW [id number]) Functional Tests Dynamic Gait Index (DGI) Score DGI Impairment Rating 40 to <60% Impaired (Score 10- 14) PT-OP-M Strength Start: 11/17/20 13:44 Freq: Status: Active Protocol: Document 11/17/20 10:40 DCW (Rec: 11/17/20 13:46 DCW [id number]) Hip Strength Hip Manual Muscle Testing Right Flexion (L2) 4- Good- Abduction 4- Good- Adduction 4- Good- Left Flexion (L2) 3+ Fair+ Abduction 4- Good- Adduction 4- Good- Knee Strength Knee Manual Muscle Testing Right Flexion (S2) 4 Good Extension (L3) 4- Good- Left Flexion (S2) 4 Good Extension (L3) 2+ Poor+ Ankle/Foot Strength Ankle and Foot Manual Muscle Testing Right Dorsiflexion (L4) 4- Good- Plantarflexion (S1) 4- Good- Left Dorsiflexion (L4) 4- Good- Plantarflexion (S1) 4- Good- PT-OP-Q Treatments Start: 11/17/20 13:19 Freq: Status: Active Protocol: Document 12/22/20 12:00 DCW (Rec: 12/22/20 12:45 DCW [id number]) Cardio Equipment Recumbent Elliptical (Biodex) Duration (Minutes) 5 Resistance 2 Seat Position 3 Gym Equipment Shuttle Recovery Unilat squat Resistance 12# Shuttle Recovery Platform Stable Reps/Time 10x B squat Resistance 25# Reps/Time 2x10 Therapeutic Exercises Standing Exercises Step ups Standing Exercise Name Forward, lateral Side bilateral Resistance 2# Equipment Used 6 step, rail Neuro Re-Education Treatment Other Activities 1 Details Testing Comments Austin, DGI PT-OP-T Assessment and Plan Start: 11/17/20 13:19 Freq: Status: Active Protocol: Document 12/22/20 12:00 DCW (Rec: 12/22/20 12:45 DCW [id number]) Physical Therapy Assessment Impairments Impairments Activity Tolerance,Balance, Coordination,Functional Activities,Gait,Strength Goals Two Impairment LE weakness limits pt stability Customs And Border Protection Officer Goal (LTG) Pt to demonstrate MMT B LE 4-/ 5 or greater LTG Duration 02/19/21 One Impairment Pt presents with an increased risk of falls Short Term Goal (STG) Pt to score 43/56 on Austin to demonstrate decreased risk of falls STG Duration 01/22/21 - improving Customs And Border [employer] Officer Goal (LTG) Pt to score 17/24 on DGI to demonstrate decreased risk of falls LTG Duration 02/19/21 - improving Assessment Summary Assessment Pt showing some mild improvement over the past month, improved Austin score by six points, and DGI improved by two. Pt still fatiguing pretty quickly. Pt should continue to benefit from skilled therapy focusing on improving LE strength, activity tolerance, and balance training. Physical Therapy Plan Frequency and Duration Frequency of Treatment 2x/Week Duration of Treatment Two months Plan of Care Start Date 12/22/20 Plan of Care End Date 02/19/21 Therapeutic Interventions Therapeutic Interventions Balance Training,Gait Training ,Home Exercise Program, Neuromuscular Re-education, Patient/Caregiver Education, Self-Care/Home Management, Therapeutic Activities, Therapeutic Exercises Next Visit Focus/Plan Next Note Type Treatment Note Next Visit Plan Assess response to last tx: HEP review, w/ increased weight on toe taps and hip ext and abd, added step ups. Continue per POC: LE strengthening, balance training, NMR.
--- NOTE | 2020-12-22 12:46 | PT.OPPOC ---
Physical, Occupational & Speech Therapy At [facility] Current Diagnoses Other abnormalities of gait and mobility (12/22/20) Repeated falls (12/22/20) Weakness (12/22/20) History of falling (12/22/20) Visit Care Team Role Provider Type Arianna Berg MD Attending Provider Physician Primary Care Provider Referring Provider Specialty: [facility] Address: [address] [place] [address], [facility] [place], [place], [facility] Email: [email or web address] Plan Of Care PT-OP-T Assessment and Plan Start: 11/17/20 13:19 Freq: Status: Active Protocol: Document 12/22/20 12:00 DCW (Rec: 12/22/20 12:45 DCW [id number]) Physical Therapy Assessment Impairments Impairments Activity Tolerance,Balance, Coordination,Functional Activities,Gait,Strength Goals Two Impairment LE weakness limits pt stability Shelter Goal (LTG) Pt to demonstrate MMT B LE 4-/ 5 or greater LTG Duration 02/19/21 One Impairment Pt presents with an increased risk of falls Short Term Goal (STG) Pt to score 43/56 on Austin to demonstrate decreased risk of falls STG Duration 01/22/21 - improving Pinking Machine Operator Goal (LTG) Pt to score 17/24 on DGI to demonstrate decreased risk of falls LTG Duration 02/19/21 - improving Assessment Summary Assessment Pt showing some mild improvement over the past month, improved Austin score by six points, and DGI improved by two. Pt still fatiguing pretty quickly. Pt should continue to benefit from skilled therapy focusing on improving LE strength, activity tolerance, and balance training. Physical Therapy Plan Frequency and Duration Frequency of Treatment 2x/Week Duration of Treatment Two months Plan of Care Start Date 12/22/20 Plan of Care End Date 02/19/21 Therapeutic Interventions Therapeutic Interventions Balance Training,Gait Training ,Home Exercise Program, Neuromuscular Re-education, Patient/Caregiver Education, Self-Care/Home Management, Therapeutic Activities, Therapeutic Exercises Next Visit Focus/Plan Next Note Type Treatment Note Next Visit Plan Assess response to last tx: HEP review, w/ increased weight on toe taps and hip ext and abd, added step ups. Continue per POC: LE strengthening, balance training, NMR. Plan of Care Dates Plan of Care Start Date 12/22/20 Plan of Care End Date 02/19/21 Electronically Signed by: Sourav Varma, PT 12/22/20 9008 Please Sign and Return: I have reviewed this Plan of Care and certify that the skilled therapy services above are required to meet the patient?s needs. Physician Signature Date Printed Name and Credentials Clinical Instructor Signature Printed Name and Credentials
--- NOTE | 2020-12-28 12:50 | PT.OTN ---
Current Diagnoses Other abnormalities of gait and mobility (12/28/20) Repeated falls (12/28/20) Weakness (12/28/20) History of falling (12/28/20) Physical Therapy Treatment Note PT-OP-A Visit Information Start: 11/17/20 13:19 Freq: Status: Active Protocol: Document 12/28/20 12:10 DCW (Rec: 12/28/20 12:50 DCW [id number]) Out-Patient Physical Therapy Visit Information Visit Information Visit Type Treatment Note Visit Note 10 min late Visit Start Time 12:10 Visit Stop Time 12:45 Total Visit Minutes 35 Visit Number 8 Number of WATERWORKS EMPLOYEE Visits 0 Evaluation Information Evaluation Date 11/17/20 PT-OP-B Current Condition Start: 11/17/20 13:19 Freq: Status: Active Protocol: Document 11/17/20 10:40 DCW (Rec: 11/17/20 13:44 DCW [id number]) Current Condition History of Current Condition Onset Date 10 months Current Complaints Deconditioning, fall history History of Current Condition Pt is an 85 year old female with a recent history of falls and deconditioning. Pt's [id number] attends today' s evaluation due to pt's severe dementia. Pt is very sweet, however is confused about everything and is unable to answer any questions regarding her limitations. DiL states that 10 months ago, pt was living in an assisted living community in [place], and during the Covid shut-down , was essentially stuck in her room for 6 months. Pt unfortunately suffered a significant decline in function over that time, and had minimal activity or movement. Four months ago, Pt' s son and oceprrye-ix-cwj moved the pt to [place] to be closer to family, and pt is currently living in [facility]. Pt was doing slightly better, because she was able to move around more, but was still weak and experiencing multiple falls. Unfortunately, [facility] had a covid outbreak recently, which meant pt was once again stuck in her room for an extended period of time , and once again declined in function. Pt insists that she is doing fine and has not had any falls, however she is a very unreliable historian due to her memory. Treatment Goals Patient/Caregiver Goals Decrease falls, improve mobility and strength PT-OP-C Subjective Start: 11/17/20 13:19 Freq: Status: Active Protocol: Document 12/28/20 12:10 DCW (Rec: 12/28/20 12:50 DCW [id number]) OP-PT Subjective Patient Comments Patient Comments Pt reports she is doing well, does not understand why she is getting so much of this ( therapy). PT-OP-D Balance Start: 11/17/20 13:19 Freq: Status: Active Protocol: Document 12/22/20 12:00 DCW (Rec: 12/22/20 12:26 DCW [id number]) OP-PT Balance Assessment Sitting Balance Static Sitting Balance Ability Normal Dynamic Sitting Balance Ability Normal Standing Balance Static Standing Balance Ability Good Dynamic Standing Balance Ability Fair Balance Tests Austin Balance Test Austin Balance Test Score 42/56 Austin Impairment Rating 20 to 39% Impaired (Score 34- 44) Austin Balance Assessment Evaluation Sitting to Standing Ability Independent w/out Hands Unsupported Stance Safely- 2 minutes Sitting Unsupported, Feet on Floor Safely- 2 minutes Standing to Sitting Ability Safely, Minimal Hand Use Transfer Ability Supervision, Verbal Cues Unsupported Stance- Eyes Closed Safely, 10 seconds Unsupported Stance- Eyes Open Assist to attain, 15 secs Reaching Forward Standing Safely, 5 inches Pick- Up Object From Floor Supervision Look Behind Shoulder - Standing Shifts Weight Unilateral Turning 360 Degrees Turns , < 4 secs Unsupported Stance, Alternating Feet on 4 Steps w/Supervision Stair Unsupported Tandem Stance Holds Tandem- 30 seconds Unilateral Leg Stance Lifts Leg/Holds > 3 secs Total Score Austin Total Score (out of 56 points) 42 Austin Impairment Rating 20 to 39% Impaired (Score 34- 44) Jones Fall Scale Copyright Permission PT-OP-E Functional Tests Start: 11/17/20 13:19 Freq: Status: Active Protocol: Document 12/22/20 12:00 DCW (Rec: 12/22/20 12:26 DCW [id number]) Functional Tests Dynamic Gait Index (DGI) Score 24 DGI Impairment Rating 40 to <60% Impaired (Score 10- 14) PT-OP-M Strength Start: 11/17/20 13:44 Freq: Status: Active Protocol: Document 11/17/20 10:40 DCW (Rec: 11/17/20 13:46 DCW [id number]) Hip Strength Hip Manual Muscle Testing Right Flexion (L2) 4- Good- Abduction 4- Good- Adduction 4- Good- Left Flexion (L2) 3+ Fair+ Abduction 4- Good- Adduction 4- Good- Knee Strength Knee Manual Muscle Testing Right Flexion (S2) 4 Good Extension (L3) 4- Good- Left Flexion (S2) 4 Good Extension (L3) 2+ Poor+ Ankle/Foot Strength Ankle and Foot Manual Muscle Testing Right Dorsiflexion (L4) 4- Good- Plantarflexion (S1) 4- Good- Left Dorsiflexion (L4) 4- Good- Plantarflexion (S1) 4- Good- PT-OP-Q Treatments Start: 11/17/20 13:19 Freq: Status: Active Protocol: Document 12/28/20 12:10 DCW (Rec: 12/28/20 12:50 DCW [id number]) Cardio Equipment Recumbent Elliptical (Biodex) Duration (Minutes) 5 Resistance 0 Seat Position 2 Gym Equipment Shuttle Recovery Unilat squat Resistance 12# Shuttle Recovery Platform Stable Reps/Time 10x B squat Resistance 25# Reps/Time 2x10 Shuttle Balance Green Details WBOS (EO/EC), Head turns, Turns Therapeutic Exercises Standing Exercises 2 Standing Exercise Name Hamstring curls Side bilateral Resistance 2# Reps/Minutes x15 Step ups Standing Exercise Name Forward, lateral Side bilateral Resistance 2# Equipment Used 6 step, rail hip ext Side bilateral Resistance rail Equipment Used 2# Reps/Minutes x15 Comments cued upright posture with glut fac sit to stand Standing Exercise Name Sit<->stand Equipment Used chair 18 Reps/Minutes x10 Comments Vcs for slower and control Other Exercises 1 Other Exercise Name Resisted side-stepping Resistance Yellow Equipment Used T-band PT-OP-T Assessment and Plan Start: 11/17/20 13:19 Freq: Status: Active Protocol: Document 12/28/20 12:10 DCW (Rec: 12/28/20 12:50 DCW [id number]) Physical Therapy Assessment Impairments Impairments Activity Tolerance,Balance, Coordination,Functional Activities,Gait,Strength Goals Two Impairment LE weakness limits pt stability Rad Tech Goal (LTG) Pt to demonstrate MMT B LE 4-/ 5 or greater LTG Duration 02/19/21 One Impairment Pt presents with an increased risk of falls Short Term Goal (STG) Pt to score 43/56 on Austin to demonstrate decreased risk of falls STG Duration 01/22/21 - improving Senior Care Goal (LTG) Pt to score 17/24 on DGI to demonstrate decreased risk of falls LTG Duration 02/19/21 - improving Assessment Summary Assessment Pt doing fairly well overall, fatigues quickly, requests rest breaks after minimal effort, but is willing to then continue working hard. Physical Therapy Plan Frequency and Duration Frequency of Treatment 2x/Week Duration of Treatment Two months Plan of Care Start Date 12/22/20 Plan of Care End Date 02/19/21 Therapeutic Interventions Therapeutic Interventions Balance Training,Gait Training ,Home Exercise Program, Neuromuscular Re-education, Patient/Caregiver Education, Self-Care/Home Management, Therapeutic Activities, Therapeutic Exercises Next Visit Focus/Plan Next Note Type Treatment Note Next Visit Plan Assess response to last tx: HEP review, w/ increased weight on toe taps and hip ext and abd, added step ups. Continue per POC: LE strengthening, balance training, NMR.
--- NOTE | 2020-12-30 12:45 | PT.OTN ---
Current Diagnoses Other abnormalities of gait and mobility (12/30/20) Repeated falls (12/30/20) Weakness (12/30/20) History of falling (12/30/20) Physical Therapy Treatment Note PT-OP-A Visit Information Start: 11/17/20 13:19 Freq: Status: Active Protocol: Document 12/30/20 12:00 DCW (Rec: 12/30/20 12:45 DCW [id number]) Out-Patient Physical Therapy Visit Information Visit Information Visit Type Treatment Note Visit Start Time 12:00 Visit Stop Time 12:45 Total Visit Minutes 45 Visit Number 9 Number of OPTICAL INSTRUMENT ASSEMBLY SUPERVISOR Visits 0 Evaluation Information Evaluation Date 11/17/20 PT-OP-B Current Condition Start: 11/17/20 13:19 Freq: Status: Active Protocol: Document 11/17/20 10:40 DCW (Rec: 11/17/20 13:44 DCW [id number]) Current Condition History of Current Condition Onset Date 10 months Current Complaints Deconditioning, fall history History of Current Condition Pt is an 85 year old female with a recent history of falls and deconditioning. Pt's [id number] attends today' s evaluation due to pt's severe dementia. Pt is very sweet, however is confused about everything and is unable to answer any questions regarding her limitations. DiL states that 10 months ago, pt was living in an assisted living community in [place], and during the Covid shut-down , was essentially stuck in her room for 6 months. Pt unfortunately suffered a significant decline in function over that time, and had minimal activity or movement. Four months ago, Pt' s son and nvvtysqt-iy-loo moved the pt to [place] to be closer to family, and pt is currently living in [facility]. Pt was doing slightly better, because she was able to move around more, but was still weak and experiencing multiple falls. Unfortunately, [facility] had a covid outbreak recently, which meant pt was once again stuck in her room for an extended period of time , and once again declined in function. Pt insists that she is doing fine and has not had any falls, however she is a very unreliable historian due to her memory. Treatment Goals Patient/Caregiver Goals Decrease falls, improve mobility and strength PT-OP-C Subjective Start: 11/17/20 13:19 Freq: Status: Active Protocol: Document 12/30/20 12:00 DCW (Rec: 12/30/20 12:45 DCW [id number]) OP-PT Subjective Patient Comments Patient Comments Pt's tjluqebz-sl-iuk notes pt had some mild nausea/vomiting yesterday after receiving her second Covid vaccination, but is doing much better today. PT-OP-D Balance Start: 11/17/20 13:19 Freq: Status: Active Protocol: Document 12/22/20 12:00 DCW (Rec: 12/22/20 12:26 DCW [id number]) OP-PT Balance Assessment Sitting Balance Static Sitting Balance Ability Normal Dynamic Sitting Balance Ability Normal Standing Balance Static Standing Balance Ability Good Dynamic Standing Balance Ability Fair Balance Tests Austin Balance Test Austin Balance Test Score 42/56 Austin Impairment Rating 20 to 39% Impaired (Score 34- 44) Austin Balance Assessment Evaluation Sitting to Standing Ability Independent w/out Hands Unsupported Stance Safely- 2 minutes Sitting Unsupported, Feet on Floor Safely- 2 minutes Standing to Sitting Ability Safely, Minimal Hand Use Transfer Ability Supervision, Verbal Cues Unsupported Stance- Eyes Closed Safely, 10 seconds Unsupported Stance- Eyes Open Assist to attain, 15 secs Reaching Forward Standing Safely, 5 inches Pick- Up Object From Floor Supervision Look Behind Shoulder - Standing Shifts Weight Unilateral Turning 360 Degrees Turns , < 4 secs Unsupported Stance, Alternating Feet on 4 Steps w/Supervision Stair Unsupported Tandem Stance Holds Tandem- 30 seconds Unilateral Leg Stance Lifts Leg/Holds > 3 secs Total Score Austin Total Score (out of 56 points) 42 Austin Impairment Rating 20 to 39% Impaired (Score 34- 44) Jones Fall Scale Copyright Permission PT-OP-E Functional Tests Start: 11/17/20 13:19 Freq: Status: Active Protocol: Document 12/22/20 12:00 DCW (Rec: 12/22/20 12:26 DCW [id number]) Functional Tests Dynamic Gait Index (DGI) Score 24 DGI Impairment Rating 40 to <60% Impaired (Score 10- 14) PT-OP-M Strength Start: 11/17/20 13:44 Freq: Status: Active Protocol: Document 11/17/20 10:40 DCW (Rec: 11/17/20 13:46 DCW [id number]) Hip Strength Hip Manual Muscle Testing Right Flexion (L2) 4- Good- Abduction 4- Good- Adduction 4- Good- Left Flexion (L2) 3+ Fair+ Abduction 4- Good- Adduction 4- Good- Knee Strength Knee Manual Muscle Testing Right Flexion (S2) 4 Good Extension (L3) 4- Good- Left Flexion (S2) 4 Good Extension (L3) 2+ Poor+ Ankle/Foot Strength Ankle and Foot Manual Muscle Testing Right Dorsiflexion (L4) 4- Good- Plantarflexion (S1) 4- Good- Left Dorsiflexion (L4) 4- Good- Plantarflexion (S1) 4- Good- PT-OP-Q Treatments Start: 11/17/20 13:19 Freq: Status: Active Protocol: Document 12/30/20 12:00 DCW (Rec: 12/30/20 12:45 DCW [id number]) Cardio Equipment Recumbent Elliptical (Biodex) Duration (Minutes) 5 Resistance 0 Seat Position 2 Gym Equipment Shuttle Recovery Unilat squat Resistance 12# Shuttle Recovery Platform Stable Reps/Time 10x B squat Resistance 25# Reps/Time 2x10 Shuttle Balance Green Details WBOS (EO/EC), Head turns, Turns Therapeutic Exercises Other Exercises 1 Other Exercise Name Resisted side-stepping Resistance Yellow Equipment Used T-band Neuro Re-Education Treatment Balance Activities 1 Details Stance stance Surface Firm hurdles Details forward stepping Equipment rail PRN Reps/Duration 2 laps Comments CG-Annika via GB SLS Details SLS PT-OP-T Assessment and Plan Start: 11/17/20 13:19 Freq: Status: Active Protocol: Document 12/30/20 12:00 DCW (Rec: 12/30/20 12:45 DCW [id number]) Physical Therapy Assessment Impairments Impairments Activity Tolerance,Balance, Coordination,Functional Activities,Gait,Strength Goals Two Impairment LE weakness limits pt stability Enrollment Management Manager Goal (LTG) Pt to demonstrate MMT B LE 4-/ 5 or greater LTG Duration 02/19/21 One Impairment Pt presents with an increased risk of falls Short Term Goal (STG) Pt to score 43/56 on Austin to demonstrate decreased risk of falls STG Duration 01/22/21 - improving Residential Goal (LTG) Pt to score 17/24 on DGI to demonstrate decreased risk of falls LTG Duration 02/19/21 - improving Assessment Summary Assessment Pt had increased complaints of fatigue and difficulty with activities today, however actually performed better in nearly all areas, especially tandem stance and SLS. Physical Therapy Plan Frequency and Duration Frequency of Treatment 2x/Week Duration of Treatment Two months Plan of Care Start Date 12/22/20 Plan of Care End Date 02/19/21 Therapeutic Interventions Therapeutic Interventions Balance Training,Gait Training ,Home Exercise Program, Neuromuscular Re-education, Patient/Caregiver Education, Self-Care/Home Management, Therapeutic Activities, Therapeutic Exercises Next Visit Focus/Plan Next Note Type Treatment Note Next Visit Plan Assess response to last tx: HEP review, w/ increased weight on toe taps and hip ext and abd, added step ups. Continue per POC: LE strengthening, balance training, NMR.
--- NOTE | 2021-01-03 15:13 | PT.OTN ---
Current Diagnoses Other abnormalities of gait and mobility (01/03/21) Repeated falls (01/03/21) Weakness (01/03/21) History of falling (01/03/21) Physical Therapy Treatment Note PT-OP-A Visit Information Start: 11/17/20 13:19 Freq: Status: Active Protocol: Document 01/03/21 14:32 LD (Rec: 01/03/21 15:56 LD [id number]) Out-Patient Physical Therapy Visit Information Visit Information Visit Type Treatment Note Visit Note ORI Perez co-led treatment w/ MECHANICAL FACILITIES TECHNICIAN Nadya. Visit Start Time 14:32 Visit Stop Time 15:13 Total Visit Minutes 41 Visit Number 10 Number of MECHANICAL FACILITIES TECHNICIAN Visits 1 PT-OP-B Current Condition Start: 11/17/20 13:19 Freq: Status: Active Protocol: Document 11/17/20 10:40 DCW (Rec: 11/17/20 13:44 DCW [id number]) Current Condition History of Current Condition Onset Date 10 months Current Complaints Deconditioning, fall history History of Current Condition Pt is an 85 year old female with a recent history of falls and deconditioning. Pt's sglmvfzh-um-fup attends today' s evaluation due to pt's severe dementia. Pt is very sweet, however is confused about everything and is unable to answer any questions regarding her limitations. DiL states that 10 months ago, pt was living in an assisted living community in [place], and during the Covid shut-down , was essentially stuck in her room for 6 months. Pt unfortunately suffered a significant decline in function over that time, and had minimal activity or movement. Four months ago, Pt' s son and lvllilfg-eq-jyl moved the pt to [place] to be closer to family, and pt is currently living in [facility]. Pt was doing slightly better, because she was able to move around more, but was still weak and experiencing multiple falls. Unfortunately, [facility] had a covid outbreak recently, which meant pt was once again stuck in her room for an extended period of time , and once again declined in function. Pt insists that she is doing fine and has not had any falls, however she is a very unreliable historian due to her memory. Treatment Goals Patient/Caregiver Goals Decrease falls, improve mobility and strength PT-OP-C Subjective Start: 11/17/20 13:19 Freq: Status: Active Protocol: Document 01/03/21 14:32 LD (Rec: 01/03/21 15:56 LD [id number]) OP-PT Subjective Patient Comments Patient Comments Pt reports that she is not happy, was woken up from a nap to come here. Daughter in law notes her having effects from the second dose of covid vaccine. PT-OP-D Balance Start: 11/17/20 13:19 Freq: Status: Active Protocol: Document 12/22/20 12:00 DCW (Rec: 12/22/20 12:26 DCW [id number]) OP-PT Balance Assessment Sitting Balance Static Sitting Balance Ability Normal Dynamic Sitting Balance Ability Normal Standing Balance Static Standing Balance Ability Good Dynamic Standing Balance Ability Fair Balance Tests Austin Balance Test Austin Balance Test Score 42/56 Austin Impairment Rating 20 to 39% Impaired (Score 34- 44) Austin Balance Assessment Evaluation Sitting to Standing Ability Independent w/out Hands Unsupported Stance Safely- 2 minutes Sitting Unsupported, Feet on Floor Safely- 2 minutes Standing to Sitting Ability Safely, Minimal Hand Use Transfer Ability Supervision, Verbal Cues Unsupported Stance- Eyes Closed Safely, 10 seconds Unsupported Stance- Eyes Open Assist to attain, 15 secs Reaching Forward Standing Safely, 5 inches Pick- Up Object From Floor Supervision Look Behind Shoulder - Standing Shifts Weight Unilateral Turning 360 Degrees Turns , < 4 secs Unsupported Stance, Alternating Feet on 4 Steps w/Supervision Stair Unsupported Tandem Stance Holds Tandem- 30 seconds Unilateral Leg Stance Lifts Leg/Holds > 3 secs Total Score Austin Total Score (out of 56 points) 42 Austin Impairment Rating 20 to 39% Impaired (Score 34- 44) Jones Fall Scale Copyright Permission PT-OP-E Functional Tests Start: 11/17/20 13:19 Freq: Status: Active Protocol: Document 12/22/20 12:00 DCW (Rec: 12/22/20 12:26 DCW [id number]) Functional Tests Dynamic Gait Index (DGI) Score 24 DGI Impairment Rating 40 to <60% Impaired (Score 10- 14) PT-OP-M Strength Start: 11/17/20 13:44 Freq: Status: Active Protocol: Document 11/17/20 10:40 DCW (Rec: 11/17/20 13:46 DCW [id number]) Hip Strength Hip Manual Muscle Testing Right Flexion (L2) 4- Good- Abduction 4- Good- Adduction 4- Good- Left Flexion (L2) 3+ Fair+ Abduction 4- Good- Adduction 4- Good- Knee Strength Knee Manual Muscle Testing Right Flexion (S2) 4 Good Extension (L3) 4- Good- Left Flexion (S2) 4 Good Extension (L3) 2+ Poor+ Ankle/Foot Strength Ankle and Foot Manual Muscle Testing Right Dorsiflexion (L4) 4- Good- Plantarflexion (S1) 4- Good- Left Dorsiflexion (L4) 4- Good- Plantarflexion (S1) 4- Good- PT-OP-Q Treatments Start: 11/17/20 13:19 Freq: Status: Active Protocol: Document 01/03/21 14:32 LD (Rec: 01/03/21 15:56 LD [id number]) Cardio Equipment Recumbent Elliptical (Biodex) Duration (Minutes) 5 Resistance 0 Seat Position 2 Gym Equipment Shuttle Balance Green Details WBOS, Staggered Comments 1. EO 2. Head turns Therapeutic Exercises Standing Exercises sit to stand Standing Exercise Name Sit<->stand Equipment Used chair 18 Reps/Minutes x10 Comments Vcs for slower and control Other Exercises 1 Other Exercise Name Resisted side-stepping Resistance Yellow Equipment Used T-band Neuro Re-Education Treatment Balance Activities Balloon toss Details balloon toss stable> unstable surface Surface unstable Equipment blue foam Reps/Duration 5 min Comments required CGA-Min A on blue foam during balloon toss hurdles Details forward stepping Equipment rail PRN Reps/Duration 2 laps Comments CG-Annika via GB PT-OP-T Assessment and Plan Start: 11/17/20 13:19 Freq: Status: Active Protocol: Document 01/03/21 14:32 LD (Rec: 01/03/21 15:56 LD [id number]) Physical Therapy Assessment Goals Two Impairment LE weakness limits pt stability Banjo Repair Person Goal (LTG) Pt to demonstrate MMT B LE 4-/ 5 or greater LTG Duration 02/19/21 One Impairment Pt presents with an increased risk of falls Short Term Goal (STG) Pt to score 43/56 on Austin to demonstrate decreased risk of falls STG Duration 01/22/21 - improving Nursing Home Goal (LTG) Pt to score 17/24 on DGI to demonstrate decreased risk of falls LTG Duration 02/19/21 - improving Assessment Summary Assessment Pt c/o of fatigue and not wanting to be here today, requiring rest breaks throughout the tx. However w/ encouragement tolerated tx well. Challenged by blue foam initially, was able to perform balloon toss, providing Min A and cues. Physical Therapy Plan Frequency and Duration Frequency of Treatment 2x/Week Duration of Treatment Two months Plan of Care Start Date 12/22/20 Plan of Care End Date 02/19/21 Therapeutic Interventions Therapeutic Interventions Balance Training,Gait Training ,Home Exercise Program, Neuromuscular Re-education, Patient/Caregiver Education, Self-Care/Home Management, Therapeutic Activities, Therapeutic Exercises Next Visit Focus/Plan Next Note Type Treatment Note Next Visit Plan Assess response to last tx: HEP review, dynamic balance. Continue per POC: LE strengthening, balance training, NMR.
--- NOTE | 2021-01-09 12:00 | PT.OTN ---
Current Diagnoses Other abnormalities of gait and mobility (01/09/21) Repeated falls (01/09/21) Weakness (01/09/21) History of falling (01/09/21) Physical Therapy Treatment Note PT-OP-A Visit Information Start: 11/17/20 13:19 Freq: Status: Active Protocol: Document 01/09/21 11:18 DCW (Rec: 01/09/21 12:00 DCW [id number]) Out-Patient Physical Therapy Visit Information Visit Information Visit Type Treatment Note Visit Start Time 11:18 Visit Stop Time 12:00 Total Visit Minutes 42 Visit Number 11 Number of HEALTH CARE CONSULTANT Visits 0 Evaluation Information Evaluation Date 11/17/20 PT-OP-B Current Condition Start: 11/17/20 13:19 Freq: Status: Active Protocol: Document 11/17/20 10:40 DCW (Rec: 11/17/20 13:44 DCW [id number]) Current Condition History of Current Condition Onset Date 10 months Current Complaints Deconditioning, fall history History of Current Condition Pt is an 85 year old female with a recent history of falls and deconditioning. Pt's rbzshnpt-ja-hja attends today' s evaluation due to pt's severe dementia. Pt is very sweet, however is confused about everything and is unable to answer any questions regarding her limitations. DiL states that 10 months ago, pt was living in an assisted living community in [place], and during the Covid shut-down , was essentially stuck in her room for 6 months. Pt unfortunately suffered a significant decline in function over that time, and had minimal activity or movement. Four months ago, Pt' s son and [id number]-ya-wsg moved the pt to [place] to be closer to family, and pt is currently living in [facility]. Pt was doing slightly better, because she was able to move around more, but was still weak and experiencing multiple falls. Unfortunately, [facility] had a covid outbreak recently, which meant pt was once again stuck in her room for an extended period of time , and once again declined in function. Pt insists that she is doing fine and has not had any falls, however she is a very unreliable historian due to her memory. Treatment Goals Patient/Caregiver Goals Decrease falls, improve mobility and strength PT-OP-C Subjective Start: 11/17/20 13:19 Freq: Status: Active Protocol: Document 01/09/21 11:18 DCW (Rec: 01/09/21 12:00 DCW [id number]) OP-PT Subjective Patient Comments Patient Comments Pt reports she is not in the mood to do this today, admits she is tired, and if she had been told this is where she was coming, she would have refused. PT-OP-D Balance Start: 11/17/20 13:19 Freq: Status: Active Protocol: Document 12/22/20 12:00 DCW (Rec: 12/22/20 12:26 DCW [id number]) OP-PT Balance Assessment Sitting Balance Static Sitting Balance Ability Normal Dynamic Sitting Balance Ability Normal Standing Balance Static Standing Balance Ability Good Dynamic Standing Balance Ability Fair Balance Tests Austin Balance Test Austin Balance Test Score 42/56 Austin Impairment Rating 20 to 39% Impaired (Score 34- 44) Austin Balance Assessment Evaluation Sitting to Standing Ability Independent w/out Hands Unsupported Stance Safely- 2 minutes Sitting Unsupported, Feet on Floor Safely- 2 minutes Standing to Sitting Ability Safely, Minimal Hand Use Transfer Ability Supervision, Verbal Cues Unsupported Stance- Eyes Closed Safely, 10 seconds Unsupported Stance- Eyes Open Assist to attain, 15 secs Reaching Forward Standing Safely, 5 inches Pick- Up Object From Floor Supervision Look Behind Shoulder - Standing Shifts Weight Unilateral Turning 360 Degrees Turns , < 4 secs Unsupported Stance, Alternating Feet on 4 Steps w/Supervision Stair Unsupported Tandem Stance Holds Tandem- 30 seconds Unilateral Leg Stance Lifts Leg/Holds > 3 secs Total Score Austin Total Score (out of 56 points) 42 Austin Impairment Rating 20 to 39% Impaired (Score 34- 44) Jones Fall Scale Copyright Permission PT-OP-E Functional Tests Start: 11/17/20 13:19 Freq: Status: Active Protocol: Document 12/22/20 12:00 DCW (Rec: 12/22/20 12:26 DCW [id number]) Functional Tests Dynamic Gait Index (DGI) Score 1324 DGI Impairment Rating 40 to <60% Impaired (Score 10- 14) PT-OP-M Strength Start: 11/17/20 13:44 Freq: Status: Active Protocol: Document 11/17/20 10:40 DCW (Rec: 11/17/20 13:46 DCW [id number]) Hip Strength Hip Manual Muscle Testing Right Flexion (L2) 4- Good- Abduction 4- Good- Adduction 4- Good- Left Flexion (L2) 3+ Fair+ Abduction 4- Good- Adduction 4- Good- Knee Strength Knee Manual Muscle Testing Right Flexion (S2) 4 Good Extension (L3) 4- Good- Left Flexion (S2) 4 Good Extension (L3) 2+ Poor+ Ankle/Foot Strength Ankle and Foot Manual Muscle Testing Right Dorsiflexion (L4) 4- Good- Plantarflexion (S1) 4- Good- Left Dorsiflexion (L4) 4- Good- Plantarflexion (S1) 4- Good- PT-OP-Q Treatments Start: 11/17/20 13:19 Freq: Status: Active Protocol: Document 01/09/21 11:18 DCW (Rec: 01/09/21 12:00 DCW [id number]) Cardio Equipment Recumbent Elliptical (Biodex) Duration (Minutes) 5 Resistance 2 Seat Position 4 Gym Equipment Shuttle Recovery Unilat squat Resistance 12# Shuttle Recovery Platform Stable Reps/Time 10x B squat Resistance 25# Reps/Time 2x10 Shuttle Balance Green Details WBOS (EO/EC), Head turns, Turns Therapeutic Exercises Standing Exercises hip abd Side bilateral Resistance rail Equipment Used 1#, 2# Reps/Minutes 2x10 Comments cued upright posture Other Exercises 1 Other Exercise Name Resisted side-stepping Resistance Yellow Equipment Used T-band Neuro Re-Education Treatment Balance Activities 1 Details Tandem stance hurdles Details forward stepping Equipment rail PRN Reps/Duration 2 laps Comments CG-Annika via GB SLS Details SLS PT-OP-T Assessment and Plan Start: 11/17/20 13:19 Freq: Status: Active Protocol: Document 01/09/21 11:18 DCW (Rec: 01/09/21 12:00 DCW [id number]) Physical Therapy Assessment Impairments Impairments Activity Tolerance,Balance, Coordination,Functional Activities,Gait,Strength Goals Two Impairment LE weakness limits pt stability It Program Manager Goal (LTG) Pt to demonstrate MMT B LE 4-/ 5 or greater LTG Duration 02/19/21 One Impairment Pt presents with an increased risk of falls Short Term Goal (STG) Pt to score 43/56 on Austin to demonstrate decreased risk of falls STG Duration 01/22/21 - improving Correction Goal (LTG) Pt to score 17/24 on DGI to demonstrate decreased risk of falls LTG Duration 02/19/21 - improving Assessment Summary Assessment After pt again complained of increased fatigue and wanting to return to her home, she actually did well, fewer requests for rest breaks today . Physical Therapy Plan Frequency and Duration Frequency of Treatment 2x/Week Duration of Treatment Two months Plan of Care Start Date 12/22/20 Plan of Care End Date 02/19/21 Therapeutic Interventions Therapeutic Interventions Balance Training,Gait Training ,Home Exercise Program, Neuromuscular Re-education, Patient/Caregiver Education, Self-Care/Home Management, Therapeutic Activities, Therapeutic Exercises Next Visit Focus/Plan Next Note Type Treatment Note Next Visit Plan Assess response to last tx: HEP review, dynamic balance. Continue per POC: LE strengthening, balance training, NMR.
--- NOTE | 2021-01-16 12:01 | PT.OTN ---
Current Diagnoses Other abnormalities of gait and mobility (01/16/21) Repeated falls (01/16/21) Weakness (01/16/21) History of falling (01/16/21) Physical Therapy Treatment Note PT-OP-A Visit Information Start: 11/17/20 13:19 Freq: Status: Active Protocol: Document 01/16/21 11:15 DCW (Rec: 01/16/21 12:01 DCW [id number]) Out-Patient Physical Therapy Visit Information Visit Information Visit Type Treatment Note Visit Start Time 11:15 Visit Stop Time 12:00 Total Visit Minutes 45 Visit Number 12 Number of DATABASE MANAGEMENT SPECIALIST Visits 0 Evaluation Information Evaluation Date 11/17/20 PT-OP-B Current Condition Start: 11/17/20 13:19 Freq: Status: Active Protocol: Document 11/17/20 10:40 DCW (Rec: 11/17/20 13:44 DCW [id number]) Current Condition History of Current Condition Onset Date 10 months Current Complaints Deconditioning, fall history History of Current Condition Pt is an 85 year old female with a recent history of falls and deconditioning. Pt's jspqjudp-pm-hat attends today' s evaluation due to pt's severe dementia. Pt is very sweet, however is confused about everything and is unable to answer any questions regarding her limitations. DiL states that 10 months ago, pt was living in an assisted living community in [place], and during the Covid shut-down , was essentially stuck in her room for 6 months. Pt unfortunately suffered a significant decline in function over that time, and had minimal activity or movement. Four months ago, Pt' s son and [id number]-wx-[id number] moved the pt to [place] to be closer to family, and pt is currently living in [facility]. Pt was doing slightly better, because she was able to move around more, but was still weak and experiencing multiple falls. Unfortunately, [facility] had a covid outbreak recently, which meant pt was once again stuck in her room for an extended period of time , and once again declined in function. Pt insists that she is doing fine and has not had any falls, however she is a very unreliable historian due to her memory. Treatment Goals Patient/Caregiver Goals Decrease falls, improve mobility and strength PT-OP-C Subjective Start: 11/17/20 13:19 Freq: Status: Active Protocol: Document 01/16/21 11:15 DCW (Rec: 01/16/21 12:01 DCW [id number]) OP-PT Subjective Patient Comments Patient Comments Pt reports she is sick of wearing these masks, and, if I had my way, notes she would prefer not come if she needs to keep wearing one. PT-OP-D Balance Start: 11/17/20 13:19 Freq: Status: Active Protocol: Document 12/22/20 12:00 DCW (Rec: 12/22/20 12:26 DCW [id number]) OP-PT Balance Assessment Sitting Balance Static Sitting Balance Ability Normal Dynamic Sitting Balance Ability Normal Standing Balance Static Standing Balance Ability Good Dynamic Standing Balance Ability Fair Balance Tests Austin Balance Test Austin Balance Test Score 42/56 Austin Impairment Rating 20 to 39% Impaired (Score 34- 44) Austin Balance Assessment Evaluation Sitting to Standing Ability Independent w/out Hands Unsupported Stance Safely- 2 minutes Sitting Unsupported, Feet on Floor Safely- 2 minutes Standing to Sitting Ability Safely, Minimal Hand Use Transfer Ability Supervision, Verbal Cues Unsupported Stance- Eyes Closed Safely, 10 seconds Unsupported Stance- Eyes Open Assist to attain, 15 secs Reaching Forward Standing Safely, 5 inches Pick- Up Object From Floor Supervision Look Behind Shoulder - Standing Shifts Weight Unilateral Turning 360 Degrees Turns , < 4 secs Unsupported Stance, Alternating Feet on 4 Steps w/Supervision Stair Unsupported Tandem Stance Holds Tandem- 30 seconds Unilateral Leg Stance Lifts Leg/Holds > 3 secs Total Score Austin Total Score (out of 56 points) 42 Austin Impairment Rating 20 to 39% Impaired (Score 34- 44) Jones Fall Scale Copyright Permission PT-OP-E Functional Tests Start: 11/17/20 13:19 Freq: Status: Active Protocol: Document 12/22/20 12:00 DCW (Rec: 12/22/20 12:26 DCW [id number]) Functional Tests Dynamic Gait Index (DGI) Score 1324 DGI Impairment Rating 40 to <60% Impaired (Score 10- 14) PT-OP-M Strength Start: 11/17/20 13:44 Freq: Status: Active Protocol: Document 11/17/20 10:40 DCW (Rec: 11/17/20 13:46 DCW [id number]) Hip Strength Hip Manual Muscle Testing Right Flexion (L2) 4- Good- Abduction 4- Good- Adduction 4- Good- Left Flexion (L2) 3+ Fair+ Abduction 4- Good- Adduction 4- Good- Knee Strength Knee Manual Muscle Testing Right Flexion (S2) 4 Good Extension (L3) 4- Good- Left Flexion (S2) 4 Good Extension (L3) 2+ Poor+ Ankle/Foot Strength Ankle and Foot Manual Muscle Testing Right Dorsiflexion (L4) 4- Good- Plantarflexion (S1) 4- Good- Left Dorsiflexion (L4) 4- Good- Plantarflexion (S1) 4- Good- PT-OP-Q Treatments Start: 11/17/20 13:19 Freq: Status: Active Protocol: Document 01/16/21 11:15 DCW (Rec: 01/16/21 12:01 DCW [id number]) Cardio Equipment Recumbent Elliptical (Biodex) Duration (Minutes) 5 Resistance 0 Seat Position 3 Gym Equipment Shuttle Recovery Unilat squat Resistance 12# Shuttle Recovery Platform Stable Reps/Time 10x B squat Resistance 25# Reps/Time x20 Shuttle Balance Red Details WBOS Therapeutic Exercises Standing Exercises hip abd Side bilateral Resistance rail Equipment Used 1#, 2# Reps/Minutes 2x10 Comments cued upright posture Other Exercises 1 Other Exercise Name Resisted side-stepping Resistance Yellow Equipment Used T-band Neuro Re-Education Treatment Balance Activities 1 Details Tandem ambulation hurdles Details forward stepping Equipment rail PRN Reps/Duration 2 laps Comments CG-Annika via GB SLS Details SLS PT-OP-T Assessment and Plan Start: 11/17/20 13:19 Freq: Status: Active Protocol: Document 01/16/21 11:15 DCW (Rec: 01/16/21 12:01 DCW [id number]) Physical Therapy Assessment Impairments Impairments Activity Tolerance,Balance, Coordination,Functional Activities,Gait,Strength Goals Two Impairment LE weakness limits pt stability Senior Policy Analyst Goal (LTG) Pt to demonstrate MMT B LE 4-/ 5 or greater LTG Duration 02/19/21 One Impairment Pt presents with an increased risk of falls Short Term Goal (STG) Pt to score 43/56 on Austin to demonstrate decreased risk of falls STG Duration 01/22/21 - improving Fpc Goal (LTG) Pt to score 17/24 on DGI to demonstrate decreased risk of falls LTG Duration 02/19/21 - improving Assessment Summary Assessment Nearing end of appointment today, pt's DiL was trying to fill patient in on further plans today, including an eye appointment. Pt suddenly became very emotionally distraught, crying because she didn't know how she would be getting to other appointments and upset because she is very aware that her memory is poor. DiL notes that this has been occurring more frequently over the last week. Other than that, pt performed very well today, balance is improving seemingly on a daily basis. Physical Therapy Plan Frequency and Duration Frequency of Treatment 2x/Week Duration of Treatment Two months Plan of Care Start Date 12/22/20 Plan of Care End Date 02/19/21 Therapeutic Interventions Therapeutic Interventions Balance Training,Gait Training ,Home Exercise Program, Neuromuscular Re-education, Patient/Caregiver Education, Self-Care/Home Management, Therapeutic Activities, Therapeutic Exercises Next Visit Focus/Plan Next Note Type Treatment Note Next Visit Plan Assess response to last tx: HEP review, dynamic balance. Continue per POC: LE strengthening, balance training, NMR.
--- NOTE | 2021-01-19 12:11 | PT-OP ANOTE ---
Pt's appt was cancelled today due to admitted to hospital inpatient.
--- NOTE | 2021-01-23 13:44 | PT.OPDS ---
Current Diagnoses Other abnormalities of gait and mobility (01/16/21) Repeated falls (01/16/21) Weakness (01/16/21) History of falling (01/16/21) Visit Care Team Role Provider Type Arianna Berg MD Attending Provider Physician Primary Care Provider Referring Provider Specialty: Family Practice Address: [address] [place] [address], [place], [address] Email: [email or web address] Visit Number Visit Number 12 Discharge Summary PT-OP-B Current Condition Start: 11/17/20 13:19 Freq: Status: Active Protocol: Document 11/17/20 10:40 DCW (Rec: 11/17/20 13:44 DCW [id number]) Current Condition History of Current Condition Onset Date 10 months Current Complaints Deconditioning, fall history History of Current Condition Pt is an 85 year old female with a recent history of falls and deconditioning. Pt's [id number] attends today' s evaluation due to pt's severe dementia. Pt is very sweet, however is confused about everything and is unable to answer any questions regarding her limitations. DiL states that 10 months ago, pt was living in an assisted living community in [place], and during the Covid shut-down , was essentially stuck in her room for 6 months. Pt unfortunately suffered a significant decline in function over that time, and had minimal activity or movement. Four months ago, Pt' s son and domosloi-pj-nsg moved the pt to [place] to be closer to family, and pt is currently living in [facility]. Pt was doing slightly better, because she was able to move around more, but was still weak and experiencing multiple falls. Unfortunately, [facility] had a covid outbreak recently, which meant pt was once again stuck in her room for an extended period of time , and once again declined in function. Pt insists that she is doing fine and has not had any falls, however she is a very unreliable historian due to her memory. Treatment Goals Patient/Caregiver Goals Decrease falls, improve mobility and strength PT-OP-C Subjective Start: 11/17/20 13:19 Freq: Status: Active Protocol: Document 01/16/21 11:15 DCW (Rec: 01/16/21 12:01 DCW [id number]) OP-PT Subjective Patient Comments Patient Comments Pt reports she is sick of wearing these masks, and, if I had my way, notes she would prefer not come if she needs to keep wearing one. PT-OP-D Balance Start: 11/17/20 13:19 Freq: Status: Active Protocol: Document 12/22/20 12:00 DCW (Rec: 12/22/20 12:26 DCW [id number]) OP-PT Balance Assessment Sitting Balance Static Sitting Balance Ability Normal Dynamic Sitting Balance Ability Normal Standing Balance Static Standing Balance Ability Good Dynamic Standing Balance Ability Fair Balance Tests Austin Balance Test Austin Balance Test Score 42/56 Austin Impairment Rating 20 to 39% Impaired (Score 34- 44) Austin Balance Assessment Evaluation Sitting to Standing Ability Independent w/out Hands Unsupported Stance Safely- 2 minutes Sitting Unsupported, Feet on Floor Safely- 2 minutes Standing to Sitting Ability Safely, Minimal Hand Use Transfer Ability Supervision, Verbal Cues Unsupported Stance- Eyes Closed Safely, 10 seconds Unsupported Stance- Eyes Open Assist to attain, 15 secs Reaching Forward Standing Safely, 5 inches Pick- Up Object From Floor Supervision Look Behind Shoulder - Standing Shifts Weight Unilateral Turning 360 Degrees Turns , < 4 secs Unsupported Stance, Alternating Feet on 4 Steps w/Supervision Stair Unsupported Tandem Stance Holds Tandem- 30 seconds Unilateral Leg Stance Lifts Leg/Holds > 3 secs Total Score Austin Total Score (out of 56 points) 42 [place] Impairment Rating 20 to 39% Impaired (Score 34- 44) Jones Fall Scale Copyright Permission PT-OP-E Functional Tests Start: 11/17/20 13:19 Freq: Status: Active Protocol: Document 12/22/20 12:00 DCW (Rec: 12/22/20 12:26 DCW [id number]) Functional Tests Dynamic Gait Index (DGI) Score 24 DGI Impairment Rating 40 to <60% Impaired (Score 10- 14) PT-OP-M Strength Start: 11/17/20 13:44 Freq: Status: Active Protocol: Document 11/17/20 10:40 DCW (Rec: 11/17/20 13:46 DCW [id number]) Hip Strength Hip Manual Muscle Testing Right Flexion (L2) 4- Good- Abduction 4- Good- Adduction 4- Good- Left Flexion (L2) 3+ Fair+ Abduction 4- Good- Adduction 4- Good- Knee Strength Knee Manual Muscle Testing Right Flexion (S2) 4 Good Extension (L3) 4- Good- Left Flexion (S2) 4 Good Extension (L3) 2+ Poor+ Ankle/Foot Strength Ankle and Foot Manual Muscle Testing Right Dorsiflexion (L4) 4- Good- Plantarflexion (S1) 4- Good- Left Dorsiflexion (L4) 4- Good- Plantarflexion (S1) 4- Good- PT-OP-T Assessment and Plan Start: 11/17/20 13:19 Freq: Status: Active Protocol: Document 01/23/21 13:40 DCW (Rec: 01/23/21 13:44 DCW [id number]) Physical Therapy Assessment Assessment Summary Assessment Pt was hospitalized on 01/19/21 with fatigue and SOB. Eventually, she was found to have severe aortic stenosis and heart failure, and was unfortunately given a terminal diagnosis and placed on hospice. Pt will be discharge from skilled outpatient PT at this time. Physical Therapy Plan Discharge Physical Therapy Discharge Reasons Change in Medical Status Next Visit Focus/Plan Next Note Type Discharge Summary
== END 2021-01-27 09:00 ==
LOC: PHYS 11:15
PROVIDERS: PCP Student in an Organized Health Care Education/Training Program; Referring Provider Student in an Organized Health Care Education/Training Program; Visit Provider Student in an Organized Health Care Education/Training Program
DX: R53.1 Weakness (principal); R29.6 Repeated falls; R26.89 Other abnormalities of gait and mobility; Z91.81 History of falling
CPT/HCPCS: 97110; 97112; 97162; 97530

== ENCOUNTER 2021-01-19 07:58 | Inpatient (IN) | payer OTHER, SELFPAY ==
[2021-01-19] VITALS (17 sets, daily range): BP systolic 94–165; BP diastolic 46–72; PULSE 84–109; RESP 16–38; TEMP 36.7–37.1; O2SAT 91–96; BMI 17.6
--- NOTE | 2021-01-19 08:01 | ED_ITS ---
HPI - General Adult General Chief complaint: Shortness of Breath/Dyspnea Stated complaint: SOB Time Seen by Provider: 01/19/21 08:00 Source: patient and EMS Mode of arrival: EMS Limitations: no limitations History of Present Illness HPI narrative: Patient is an 86-year-old female according to the records and I have she is not on anticoagulation and not on home oxygen. Arrived this morning by EMS from her nursing facility after she reported having shortness of breath. Patient states that she is not having any pain but just having problems breathing. She thought it started this morning when she woke up. EMS reports that she was satting in the low 90s on room air and had minimal change when placed on 2 L of oxygen by nasal cannula prior to arrival here in the ER. Patient has a history of dementia noted in her record. She does know that she is in the hospital but does not know the name of the hospital. She does not know what year it is. She states that she just feels very poorly. It also appears that she had a COVID-19 vaccine approximately 20 days ago. Related Data Home Medications Medication Instructions Recorded Confirmed buspirone 7.5 mg PO BID 01/19/21 01/19/21 escitalopram oxalate 15 mg PO DAILY 01/19/21 01/19/21 gabapentin 100 mg PO TID 01/19/21 01/19/21 levothyroxine 88 mcg PO DAILY 01/19/21 01/19/21 lorazepam 0.5 mg PO PRN PRN 01/19/21 01/19/21 omeprazole 20 mg PO DAILY 01/19/21 01/19/21 pravastatin 40 mg PO DAILY 01/19/21 01/19/21 Allergies Allergy/AdvReac Type Severity Reaction Status Date / Time codeine Allergy Verified 01/19/21 08:07 metronidazole [From Flagyl] Allergy Verified 01/19/21 08:07 Review of Systems Review of Systems Narrative: Somewhat limited by mental status Constitutional Constitutional: Denies fever(s) Cardiovascular Cardiovascular: Denies chest pain and Reports dyspnea Respiratory Respiratory: Denies cough and Reports dyspnea Gastrointestinal Gastrointestinal: Denies abdominal pain Integumentary/Breasts Skin/Breast: Denies rash Neurologic Comments: No reported behavioral changes Hematologic/Lymphatic On Anticoagulants: No Allergic/Immunologic Allergic/Immunologic: Denies urticaria Patient History Medical History Acute intra-cranial hemorrhage Anxiety Arthritis Dementia Depression Diverticulosis Gastroesophageal reflux disease Hyperlipidemia Hypothyroid Low back pain Macular degeneration Urinary incontinence Social History Smoking Status: Never smoker Smoking Status: Never smoker Exam Initial Vital Signs Initial Vital Signs: Vital Signs Temperature 98.8 F 01/19/21 08:03 Pulse Rate 106 H 01/19/21 08:03 Respiratory Rate 24 01/19/21 08:03 Pulse Oximetry 92 01/19/21 08:03 Const General: comfortable, No acute distress and No ill appearing HENMT Head: normal to inspection and normocephalic Resp Effort & Inspection: labored and tachypneic Auscultation: crackles Cardio Rate: tachycardic Rhythm: regular rhythm Heart Sounds: murmur GI Inspection: non-distended Palpation: soft Skin Lesions: no lesions Rashes: no rashes Neuro General: patient alert and patient awake Speech: speech normal Extrem General: No edema Psych Appearance: grossly normal Scores GCS [place] coma scale eye opening: Spontaneous [place] coma scale verbal response: Confused [place] coma scale motor response: Obey commands [place] coma scale total score: 14 Course Orders Ordered: ED Orders 01/19/21 08:01 XR chest 1V Stat EKG-12 Lead Stat 01/19/21 08:04 COVID19 Stat Complete Blood Count AUTO DIFF Stat Comprehensive Metabolic Panel Stat Lipase Stat NT-proBNP (BNP-Adult 18+) Stat Partial Thromboplastin Time Stat Prothrombin Time INR Stat Troponin & CK Cardiac Panel Stat 01/19/21 08:20 Procalcitonin Stat 01/19/21 08:50 Blood Culture Stat Lactate (Lactic Acid) Stat 01/19/21 09:23 Consult to Physician Urgent 01/19/21 09:30 Urine Microscopic Stat Ondansetron HCl (Ondansetron 4 Mg/2 Ml Inj) 4 mg IV Q4HR PRN PRN Reason: Nausea And Vomiting Discontinued Medications Furosemide (Furosemide 40 Mg/4 Ml Vial) 40 mg IV NOW ONE Stop: 01/19/21 08:47 Last Admin: 01/19/21 09:02 Dose: 40 mg Documented by: Azithromycin 500 mg/ Dextrose 250 mls @ 250 mls/hr IV NOW ONE Stop: 01/19/21 08:41 Last Admin: 01/19/21 09:01 Dose: 250 mls/hr Documented by: Lorazepam (Lorazepam 0.5 Mg Tablet) 0.5 mg PO NOW ONE Stop: 01/19/21 08:23 Last Admin: 01/19/21 08:26 Dose: 0.5 mg Documented by: Vital Signs Vital signs: Vital Signs - 8 hr 01/19/21 08:03 01/19/21 08:07 01/19/21 08:10 Temperature 98.8 F Pulse Rate 106 H 101 H 98 H Respiratory Rate 24 27 H 28 H Blood Pressure 165/67 H Pulse Oximetry 92 93 96 01/19/21 08:30 01/19/21 08:41 01/19/21 09:00 Temperature Pulse Rate 109 H 91 H Respiratory Rate 38 H 21 Blood Pressure 153/72 H Pulse Oximetry 93 92 91 01/19/21 09:07 01/19/21 09:08 01/19/21 09:30 Temperature Pulse Rate 94 H 92 H 91 H Respiratory Rate 22 22 22 Blood Pressure 131/63 128/57 L Pulse Oximetry 92 92 93 Medical Decision Making Medical Records Medical records reviewed: Yes I reviewed the patient's medical records. Lab Data Lab results reviewed: Yes I reviewed the patient's lab results. Result diagrams: 01/19/21 08:04 01/19/21 08:04 Labs: Lab Results 01/19/21 01/19/21 01/19/21 Range/Units 08:04 08:04 08:04 WBC 8.6 (4.5-11.0) X10^3/uL RBC 4.45 (4.0-5.2) X10^6/uL Hgb 11.9 L (12.0-16.0) g/dL Hct 37.8 (36-46) % MCV 84.9 (80-100) fL MCH 26.8 (26-34) PG MCHC 31.6 (30-36) % RDW 15.6 H (11.6-14.8) % Plt Count 167 (150-400) X10^3/uL Neut % (Auto) 55.3 (50-75) % Lymph % (Auto) 34.5 (25-40) % [place] % (Auto) 8.0 (3-14) % Eos % (Auto) 1.6 L (2-4) % Baso % (Auto) 0.6 (0-2) % Neut # (Auto) 4700 (3116-8422) /uL Lymph # (Auto) 2900 (6543-8117) /uL [place] # (Auto) 700 (0-900) /uL Eos # (Auto) 100 (0-450) /uL Baso # (Auto) 100 (0-100) /uL PT (10.1-12.7) SECONDS INR (0.9-1.3) APTT 37 H (26.4-36.2) SECONDS Sodium 139 (137-145) mmol/L Potassium 3.8 (3.4-5.1) mmol/L Chloride 107 (98-107) mmol/L Carbon Dioxide 28 (22-32) mmol/L BUN 15 (7-17) mg/dL Creatinine 0.80 (0.52-1.04) mg/dL Estimated GFR > 60.0 (>60) mL/min BUN/Creatinine Ratio 18.8 (6-22) Glucose 104 (80-110) mg/dL Lactate (0.7-2.1) mmol/L Calcium 9.0 (8.4-10.2) mg/dL Total Bilirubin 0.4 (0.2-1.3) mg/dL AST 32 (14-36) IU/L ALT 17 (<35) IU/L Alkaline Phosphatase 90 (38-126) U/L Total Creatine Kinase (30-135) U/L CK-MB (CK-2) CK-MB (CK-2) Rel Index Troponin I (0.01-0.034) ng/mL NT-Pro-B Natriuret Pep 79084 H (<450) pg/mL Total Protein 6.7 (6.3-8.2) g/dL Albumin 3.7 (3.5-5.0) g/dL Globulin 3.0 (1.7-4.1) g/dL Albumin/Globulin Ratio 1.2 (1.0-2.8) Lipase 227 (23-300) U/L Procalcitonin (<0.5) ng/mL SARS-CoV-2 (PCR) (Negative) 01/19/21 01/19/21 01/19/21 Range/Units 08:04 08:04 08:04 WBC (4.5-11.0) X10^3/uL RBC (4.0-5.2) X10^6/uL Hgb (12.0-16.0) g/dL Hct (36-46) % MCV (80-100) fL MCH (26-34) PG MCHC (30-36) % RDW (11.6-14.8) % Plt Count (150-400) X10^3/uL Neut % (Auto) (50-75) % Lymph % (Auto) (25-40) % [place] % (Auto) (3-14) % Eos % (Auto) (2-4) % Baso % (Auto) (0-2) % Neut # (Auto) (8556-9376) /uL Lymph # (Auto) (1625-6657) /uL [place] # (Auto) (0-900) /uL Eos # (Auto) (0-450) /uL Baso # (Auto) (0-100) /uL PT 11.8 (10.1-12.7) SECONDS INR 1.0 (0.9-1.3) APTT (26.4-36.2) SECONDS Sodium (137-145) mmol/L Potassium (3.4-5.1) mmol/L Chloride (98-107) mmol/L Carbon Dioxide (22-32) mmol/L BUN (7-17) mg/dL Creatinine (0.52-1.04) mg/dL Estimated GFR (>60) mL/min BUN/Creatinine Ratio (6-22) Glucose (80-110) mg/dL Lactate (0.7-2.1) mmol/L Calcium (8.4-10.2) mg/dL Total Bilirubin (0.2-1.3) mg/dL AST (14-36) IU/L ALT (<35) IU/L Alkaline Phosphatase (38-126) U/L Total Creatine Kinase 51 (30-135) U/L CK-MB (CK-2) TNP CK-MB (CK-2) Rel Index TNP Troponin I 0.020 (0.01-0.034) ng/mL NT-Pro-B Natriuret Pep (<450) pg/mL Total Protein (6.3-8.2) g/dL Albumin (3.5-5.0) g/dL Globulin (1.7-4.1) g/dL Albumin/Globulin Ratio (1.0-2.8) Lipase (23-300) U/L Procalcitonin (<0.5) ng/mL SARS-CoV-2 (PCR) Negative (Negative) 01/19/21 01/19/21 Range/Units 08:20 08:50 WBC (4.5-11.0) X10^3/uL RBC (4.0-5.2) X10^6/uL Hgb (12.0-16.0) g/dL Hct (36-46) % MCV (80-100) fL MCH (26-34) PG MCHC (30-36) % RDW (11.6-14.8) % Plt Count (150-400) X10^3/uL Neut % (Auto) (50-75) % Lymph % (Auto) (25-40) % [place] % (Auto) (3-14) % Eos % (Auto) (2-4) % Baso % (Auto) (0-2) % Neut # (Auto) (1335-8727) /uL Lymph # (Auto) (5120-5790) /uL [place] # (Auto) (0-900) /uL Eos # (Auto) (0-450) /uL Baso # (Auto) (0-100) /uL PT (10.1-12.7) SECONDS INR (0.9-1.3) APTT (26.4-36.2) SECONDS Sodium (137-145) mmol/L Potassium (3.4-5.1) mmol/L Chloride (98-107) mmol/L Carbon Dioxide (22-32) mmol/L BUN (7-17) mg/dL Creatinine (0.52-1.04) mg/dL Estimated GFR (>60) mL/min BUN/Creatinine Ratio (6-22) Glucose (80-110) mg/dL Lactate 0.7 (0.7-2.1) mmol/L Calcium (8.4-10.2) mg/dL Total Bilirubin (0.2-1.3) mg/dL AST (14-36) IU/L ALT (<35) IU/L Alkaline Phosphatase (38-126) U/L Total Creatine Kinase (30-135) U/L CK-MB (CK-2) CK-MB (CK-2) Rel Index Troponin I (0.01-0.034) ng/mL NT-Pro-B Natriuret Pep (<450) pg/mL Total Protein (6.3-8.2) g/dL Albumin (3.5-5.0) g/dL Globulin (1.7-4.1) g/dL Albumin/Globulin Ratio (1.0-2.8) Lipase (23-300) U/L Procalcitonin 0.06 (<0.5) ng/mL SARS-CoV-2 (PCR) (Negative) Urine Dip Bedside Urine Glucose Negative Bedside Urine Bilirubin - Negative Bedside Urine Ketone - Negative Urine Specific [place] 1.025 Bedside Urine Occult Blood + Bedside Urine pH 6.0 Bedside Urine Protein - Negative Bedside Urine Urobilinogen - Negative Bedside Urine Nitrite - Negative Bedside Urine Leukocytes ++ 125 Esterase Point of care testing: Urine Dip Bedside Urine Glucose Negative Bedside Urine Bilirubin - Negative Bedside Urine Ketone - Negative Urine Specific [place] 1.025 Bedside Urine Occult Blood + Bedside Urine pH 6.0 Bedside Urine Protein - Negative Bedside Urine Urobilinogen - Negative Bedside Urine Nitrite - Negative Bedside Urine Leukocytes ++ 125 Esterase Imaging Data Chest x-ray: Radiologist's Impression: [address] [id number] ReportSigned Patient: Nargis Gutierrez DMR#: [id number]: 6Acct:[id number]/Sex: 86 / FDate of Service: 01/19/21Loc: EDAccession Number: [id number] Procedure: XR chest 1V Ordering Provider: Tapan Orellana D.O. PROCEDURE: XR CHEST 1V INDICATIONS: SOB TECHNIQUE: One view of the chest was acquired. COMPARISON: [facility], CT, CT CERVICAL SPINE WO CON, 12/11/2020, 13:17. FINDINGS: Surgical changes and devices: None. Lungs and pleura: Increased pulmonary markings particularly in the upper lobes. Mild airspace opacity at the right lung base. Moderate left pleural effusion. Probable small right pleural effusion. No pneumothorax. Mediastinum: Mediastinal contours appear normal. Heart size is normal. Bones and chest wall: No suspicious bony lesions. Overlying soft tissues appear unremarkable. IMPRESSION: Moderate left and small right pleural effusions. Bibasilar airspace opacity. This could represent compressive atelectasis or pneumonia. Dictated by: Errol Stevens M.D. on 01/19/2021 at 9:01 Approved by: Errol Stevens M.D. on 01/19/2021 at 9:06 ECG Data Attestation: I personally reviewed and interpreted this ECG as follows: Prior ECG tracings: not available for review Interpretation: Sinus rhythm Ventricular rate 98 LVH Normal axis Nonspecific ST T wave changes Artifact noted MDM Narrative Medical decision making narrative: Patient has no fever, no white count, negative lactate, negative procalcitonin. Patient did have respiratory distress and hypoxia upon arrival. She knew she was in the hospital but otherwise was confused. Does have reported history of dementia. Was given azithromycin given her presentation. Chest x-ray does have some concern about pneumonia however this could also be chronic lung disease. There is no reported history of CHF for COPD however she does have an elevated BNP. She was given Lasix. Discussed the case with Dr. berg who is the patient's primary doctor who will admit for further evaluation treatment. I did discuss this with the patient who did expressed understanding. Discharge Plan Departure Patient Disposition: Admitted As Inpatient Clinical Impression: Shortness of Breath, Acute respiratory distress, Hypoxia Admit Date/Time: 01/19/21 09:34 Admit Provider: Arianna Berg
[2021-01-19 08:08] LABS: Add Manual Diff / Slide Review NO; Basophils Absolute Auto 100 /uL (0-100); Basophils Percent Auto 0.6 % (0-2); Eosinophils Absolute Auto 100 /uL (0-450); Eosinophils Percent Auto 1.6 % (2-4); Hematocrit 37.8 % (36-46); Hemoglobin 11.9 g/dL (12.0-16.0); Lymphocytes Absolute Auto 2900 /uL (1100-4500); Lymphocytes Percent Auto 34.5 % (25-40); Mean Corpuscular HGB Conc 31.6 % (30-36); Mean Corpuscular Hemoglobin 26.8 PG (26-34); Mean Corpuscular Volume 84.9 fL (80-100); Monocytes Absolute Auto 700 /uL (0-900); Neutrophils Absolute Auto 4700 /uL (1500-7000); Neutrophils Percent Auto 55.3 % (50-75); Platelet Count 167 X10^3/uL (150-400); Red Blood Cell Count 4.45 X10^6/uL (4.0-5.2); Red Cell Distribution Width 15.6 % (11.6-14.8); White Blood Cell Count 8.6 X10^3/uL (4.5-11.0)
[2021-01-19 08:13] LABS: Prothrombin Time 11.8 SECONDS (10.1-12.7)
[2021-01-19 08:20] LABS: Alanine Aminotransferase 17 IU/L (<35); Albumin 3.7 g/dL (3.5-5.0); Albumin Globulin Ratio 1.2 (1.0-2.8); Alkaline Phosphatase 90 U/L (38-126); Aspartate Aminotransferase 32 IU/L (14-36); BUN Creatinine Ratio 18.8 (6-22); Bilirubin Total 0.4 mg/dL (0.2-1.3); Blood Urea Nitrogen 15 mg/dL (7-17); Carbon Dioxide 28 mmol/L (22-32); Chloride 107 mmol/L (98-107); Creatine Kinase 51 U/L (30-135); Estimated Glomerular Filt Rate > 60.0 mL/min (>60); Glucose 104 mg/dL (80-110); HEMOLYSIS < 15 (0-50); Lipase 227 U/L (23-300); Potassium 3.8 mmol/L (3.4-5.1); Sodium 139 mmol/L (137-145); Total Protein 6.7 g/dL (6.3-8.2)
[2021-01-19 08:22] LABS: PTT Partial Thromboplastin Tim 37 SECONDS (26.4-36.2)
[2021-01-19] MEDS: LORazepam 0.5 MG TABLET PO (08:26)
[2021-01-19 08:29] LABS: NT-proBNP (BNP-Adult 18+) 12200 pg/mL (<450)
[2021-01-19 08:41] LABS: COVID19 -Nasal RAPID Negative (Negative)
[2021-01-19 09:01] LABS: Procalcitonin 0.06 ng/mL (<0.5)
[2021-01-19] MEDS: AZITHROMYCIN 500 MG in DEXTROSE 5% IN WATER 250 ML IV (09:01)
[2021-01-19] MEDS: FUROSEMIDE 40 MG/4 ML VIAL IV (09:02)
[2021-01-19 09:08] LABS: Lactate (Lactic Acid) 0.7 mmol/L (0.7-2.1)
--- NOTE | 2021-01-19 09:43 | PC.NURSE ---
Pt did well getting up to BSC with one assist. O2 sat remained above 91% with movement
[2021-01-19 09:54] LABS: Bacteria Urine Many (>30); Culture Indicated Urine Specimen Cultured; RBC Urine 1-5/HPF (0-5/HPF); Squamous Epithelial Cell Urine 1-5 /HPF (0-5/HPF); WBC Urine 30-100/HPF (0-5/HPF)
--- NOTE | 2021-01-19 11:08 | PC.NURSE ---
Day shift: Pt on unit from ED at approx 1100. VS WNL. 3L NC 94%. CAHUILLA. High fall risk. Crackles in bases. From Michelle. A&Ox2 is her baseline. Up to BSC and new brief placed. pulping machine operator Meche informed that Pt may need a sitting this evening. Had Small/tiny BM and voided.
--- NOTE | 2021-01-19 12:55 | P.HP_ITS ---
History of Present Illness History of Present Illness Date Patient Seen: 01/19/21 Time Patient Seen: 12:56 Chief complaint: SOB Narrative: This 86 year-old female presented to the ED secondary to shortness of breath x several hours. She arrived via EMS from [facility]. EMS reports that she was oxygenating in the low 90s on room air upon awakening and when placed on 2 L, had minimal change. She does have known dementia and upon arrival to the ED, was not oriented to place or time. Stated that she felt poorly. Received her COVID-19 vaccine approximately 20 days ago. Otherwise, reports no recent changes to her routine including food, medication, or travel. She is in a lock-down facility and has been away from family. Did have a fall on 12/11/2019 that resulted in a subarachnoid hemorrhage that is stable and has been followed with serial CT scans. Vital signs upon admission to the ED included a temperature of 98.8?, pulse 106, respirations 24, blood pressure 165/67, O2 saturation 92% on 2 L. Significant workup included a BNP of 12,200 and a chest x-ray with moderate left and small right pleural effusions. She also had compression atelectasis versus pneumonia. UA had some leukocytes. Notably, her white count, procalcitonin, and lactic acid were all normal. Troponin was negative. She was administered Lasix 40 mg IV x1 and azithromycin 500 mg x 1. She was also given Zofran and lorazepam prior to transfer to the floor. Past Medical History: HYPOTHYROIDISM HYPERLIPIDEMIA DEMENTIA, SENILE Anxiety GERD (gastroesophageal reflux disease) Weakness Hearing aid worn Presbycusis, bilateral Cataract Incontinence, urine Neuropathy Chronic UTIs Depression Colitis Osteoarthritis Past Surgical History: Reviewed history from 09/22/2020 and no changes required: Hernia Cataract, left eye, 2019 Family History: Depression, dementia- Mother Social History: Recently moved from [place], patient's sons, Antwan and Roddy, have power of keeper helper. DNR. Patient has 4 sons, 2 live locally in [place]. Marital Status: Children: 4 Occupation: retired- telecom billing analyst Household Members: Lives at [facility] Patient History Medical History Acute intra-cranial hemorrhage Anxiety Arthritis Dementia Depression Diverticulosis Gastroesophageal reflux disease Hyperlipidemia Hypothyroid Low back pain Macular degeneration Urinary incontinence Family & Social History Safety & Behavioral: Feels Safe in Current Yes Environment Been Physically Hurt or No Threatened By a Person Tobacco & Substance use: Smoking Status Never smoker Meds Home Medications and Allergies Home Medications Medication Instructions Recorded Confirmed Type buspirone 7.5 mg PO BID 01/19/21 01/19/21 History escitalopram oxalate 15 mg PO DAILY 01/19/21 01/19/21 History gabapentin 100 mg PO TID 01/19/21 01/19/21 History levothyroxine 88 mcg PO DAILY 01/19/21 01/19/21 History lorazepam 0.5 mg PO PRN PRN 01/19/21 01/19/21 History omeprazole 20 mg PO DAILY 01/19/21 01/19/21 History pravastatin 40 mg PO DAILY 01/19/21 01/19/21 History Allergies Allergy/AdvReac Type Severity Reaction Status Date / Time codeine Allergy Verified 01/19/21 08:07 metronidazole [From Flagyl] Allergy Verified 01/19/21 08:07 Exam Vital Signs (past 8 hours): - 01/19/21 08:03 01/19/21 08:07 01/19/21 08:10 Temperature 98.8 F Pulse Rate 106 H 101 H 98 H Respiratory Rate 24 27 H 28 H Blood Pressure 165/67 H Pulse Oximetry 92 93 96 01/19/21 08:30 01/19/21 08:41 01/19/21 09:00 Temperature Pulse Rate 109 H 91 H Respiratory Rate 38 H 21 Blood Pressure 153/72 H Pulse Oximetry 93 92 91 01/19/21 09:07 01/19/21 09:08 01/19/21 09:30 Temperature Pulse Rate 94 H 92 H 91 H Respiratory Rate 22 22 22 Blood Pressure 131/63 128/57 L Pulse Oximetry 92 92 93 01/19/21 10:00 01/19/21 10:18 01/19/21 10:30 Temperature Pulse Rate 91 H 97 H 85 Respiratory Rate 23 22 27 H Blood Pressure 103/60 97/46 L Pulse Oximetry 92 94 94 01/19/21 11:00 Temperature 98.3 F Pulse Rate 87 Respiratory Rate 16 Blood Pressure 118/57 L Pulse Oximetry 93 Fraction of Inspired Oxygen 30 Oxygen Delivery Method Venturi Mask Oxygen Flow Rate 3.5 Narrative Exam Narrative: GENERAL: Alert and oriented only to person, appearing stated age and in no acute distress. HEENT: Head normocephalic/atraumatic. Pupils equal, round, and reactive to light and accomodation. Extraocular muscles intact. Tympanic membranes clear. Nasal mucosa moist, septum midline. Oral mucosa moist, no lesions. Neck soft and supple, no lymphadenopathy. LUNGS: Diminished inspiratory effort, bibasilar rales. No wheezes. CV: Normal S1 and S2 with regular rate and rhythm, 3/5 systolic murmur, no rubs or gallops. ABDOMEN: Soft, non-tender, non-distended, no organomegaly. Positive bowel sounds. EXTREMITIES: No clubbing, cyanosis, or edema. NEURO: Cranial nerves II through XII grossly intact, no focal deficits. PSYCH: Alert and oriented x 1. Disoriented to place and time. Tearful, crying throughout interview. SKIN: No concerning lesions. Objective Labs Result Diagrams: 01/19/21 08:04 01/19/21 08:04 Labs: Laboratory Results - last 24 hr 01/19/21 01/19/21 01/19/21 08:04 08:04 08:04 WBC 8.6 RBC 4.45 Hgb 11.9 L Hct 37.8 MCV 84.9 MCH 26.8 MCHC 31.6 RDW 15.6 H Plt Count 167 Neut % (Auto) 55.3 Lymph % (Auto) 34.5 [place] % (Auto) 8.0 Eos % (Auto) 1.6 L Baso % (Auto) 0.6 Neut # (Auto) 4700 Lymph # (Auto) 2900 [place] # (Auto) 700 Eos # (Auto) 100 Baso # (Auto) 100 PT INR APTT 37 H Sodium 139 Potassium 3.8 Chloride 107 Carbon Dioxide 28 BUN 15 Creatinine 0.80 Estimated GFR > 60.0 BUN/Creatinine Ratio 18.8 Glucose 104 Lactate Calcium 9.0 Total Bilirubin 0.4 AST 32 ALT 17 Alkaline Phosphatase 90 Total Creatine Kinase CK-MB (CK-2) CK-MB (CK-2) Rel Index Troponin I NT-Pro-B Natriuret Pep 16229 H Total Protein 6.7 Albumin 3.7 Globulin 3.0 Albumin/Globulin Ratio 1.2 Lipase 227 Procalcitonin Urine RBC Urine WBC Ur Squamous Epith Cells Urine Bacteria Ur Culture Indicated? SARS-CoV-2 (PCR) 01/19/21 01/19/2121 08:04 08:04 08:04 WBC RBC Hgb Hct MCV MCH MCHC RDW Plt Count Neut % (Auto) Lymph % (Auto) [place] % (Auto) Eos % (Auto) Baso % (Auto) Neut # (Auto) Lymph # (Auto) [place] # (Auto) Eos # (Auto) Baso # (Auto) PT 11.8 INR 1.0 APTT Sodium Potassium Chloride Carbon Dioxide BUN Creatinine Estimated GFR BUN/Creatinine Ratio Glucose Lactate Calcium Total Bilirubin AST ALT Alkaline Phosphatase Total Creatine Kinase 51 CK-MB (CK-2) TNP CK-MB (CK-2) Rel Index TNP Troponin I 0.020 NT-Pro-B Natriuret Pep Total Protein Albumin Globulin Albumin/Globulin Ratio Lipase Procalcitonin Urine RBC Urine WBC Ur Squamous Epith Cells Urine Bacteria Ur Culture Indicated? SARS-CoV-2 (PCR) Negative 01/19/21 01/19/21 01/19/21 08:20 08:50 09:25 WBC RBC Hgb Hct MCV MCH MCHC RDW Plt Count Neut % (Auto) Lymph % (Auto) [place] % (Auto) Eos % (Auto) Baso % (Auto) Neut # (Auto) Lymph # (Auto) [place] # (Auto) Eos # (Auto) Baso # (Auto) PT INR APTT Sodium Potassium Chloride Carbon Dioxide BUN Creatinine Estimated GFR BUN/Creatinine Ratio Glucose Lactate 0.7 Calcium Total Bilirubin AST ALT Alkaline Phosphatase Total Creatine Kinase CK-MB (CK-2) CK-MB (CK-2) Rel Index Troponin I NT-Pro-B Natriuret Pep Total Protein Albumin Globulin Albumin/Globulin Ratio Lipase Procalcitonin 0.06 Urine RBC 1-5/hpf Urine WBC 30-100/hpf H Ur Squamous Epith Cells 1-5 /hpf Urine Bacteria Many (>30) H Ur Culture Indicated? Specimen cultured SARS-CoV-2 (PCR) Assessment & Plan Assessment & Plan narrative: 1. Acute respiratory distress likely secondary to heart failure of unknown type versus pneumonia Plan: Will continue prophylactic azithromycin and add daily rocephin as well as supportive care. Echo and repeat BMP in morning. Likely re-dose of Lasix at that time. 2. Acute metabolic encephalopathy, secondary to UTI versus pneumonia. Plan: Care as above. Urine culture pending. 3. Dementia, senile Plan: Have taken SCDs off as patient is also fall risk and has been trying to get out of bed. One-to-one nursing orders placed. Will continue usual home medications. 4. Anxiety/depression, chronic Plan: Anticipate that this will be one of the most significant issues during patient's inpatient stay as she was in a very severe depression before being moved from [place] to [place] to be closer to children. She has been on lock- down at [facility] and crying all the time because she can't see her family. Will continue her usual home medications and consult pastoral care. 5. Hypothyroidism, chronic Plan: Continue home medications. 6. Hyperlipidemia, chronic Plan: Continue home medications. 7. GERD, chronic Plan: Continue home medications. 8. Subarachnoid hemorrhage, chronic Plan: Supportive care. 9. Fall risk Plan: 1:1 nursing care. DVT prophylaxis: Patient is a fall risk, cannot be on blood thinners. She is also an eloper, making her SCDs a potential agent for tripping her as she tries to get out of bed without assistance. Unable to provide DVT prophylaxis during stay. GI prophylaxis: Home PPI. Code: DNR Disposition: Anticipate 2 days.
--- NOTE | 2021-01-19 13:25 | PT.IIE ---
Current Diagnoses Unspecified dementia without behavioral disturbance (01/19/21) Medical History (Last Reviewed 01/19/21 @ 08:16 by Tapan Orellana DO) Acute intra-cranial hemorrhage Anxiety Arthritis Dementia Depression Diverticulosis Gastroesophageal reflux disease Hyperlipidemia Hypothyroid Low back pain Macular degeneration Urinary incontinence Physical Therapy Inpatient Evaluation/Re-Eval M1 PT/OT-IP Prior Functional Status Start: 01/19/21 14:24 Freq: NEEDED Status: Active Protocol: Document 01/19/21 13:25 AB (Rec: 01/19/21 14:47 AB [id number]) Medical Review Prior Functional Status Medical History Reviewed Yes Communication able to make needs known Mobility and Gait pt stated that she is independent with all mobilities and ambulation without AD Prior Functional Level (Other details) pt has memory issues and does not give accurate info. Called [facility] but unable to speak with nurse to inquire regarding pt's PLOF. Social History Household Members none Living Arrangements Assisted Living Number of Floors (Floors) One Floor Number of Stairs To Enter/Railing? pt lives at [facility] Home Environment Standard Height Toilet,Walk in Shower M2 PT-IP Current Condition Start: 01/19/21 14:24 Freq: NEEDED Status: Active Protocol: Document 01/19/21 13:25 AB (Rec: 01/19/21 14:47 AB [email or web address]) Physical Therapy Current Condition Current Condition Evaluation Date 01/19/21 Treatment Diagnosis SOB; difficulty in walking Onset Date 01/19/21 Precautions Other Precautions falls; O2 sat M3 PT-IP Subjective Start: 01/19/21 14:24 Freq: NEEDED Status: Active Protocol: Document 01/19/21 13:25 AB (Rec: 01/19/21 14:47 AB [id number]) Subjective Physical Therapy Visit Type Type Initial Evaluation Visit Start Time 13:25 Visit Stop Time 13:57 Total Visit Minutes 32 Number of SHEET SORTER Visits 0 Physical Therapy Visit Comments Patient Comments pt is agreeable to do PT M4 PT-IP Mobility and Gait Start: 01/19/21 14:24 Freq: NEEDED Status: Active Protocol: Document 01/19/21 13:25 AB (Rec: 01/19/21 14:47 AB [id number]) PT-Bed Mobility Assessment Supine to Sit Supine to Sit Standby Assistance,Head of Bed Elevated Sit to Supine Sit to Supine Minimal Assistance Scooting Scooting Up and Down in Bed Maximum Assistance PT-Transfer Assessment Sit to and From Stand Sit to and from Stand Minimal Assistance,1 Person Assistance,Use of Upper Extremities Equipment Transfer Assistive Device None,Gait Belt,Front Wheeled Walker Orthotic/Prosthetic Devices or Brace: No Comments Mobility Comments O2 sat room air 92%. pt with confusion. re-orientated to place but after a few seconds will ask if everybody will be going back home. pt needs constant redirection. completed supine to sit SBA with HOB elevated. completed sit to stand min A and ambulated without AD min A ~ 20 ft but DENTAL OFFICER provided. presents with very unsteady gait. assessed ambulation using FWW 30 ft CGA and is steadier than without AD. pt requested to go back to bed. completed sit to supine min A. required max A for positioning in bed. call light and table placed within reach. Gait Assessment Gait Gait Assistance Required: Minimum Assistance Distance (Feet) 30 Assistive Devices Assistive Device None,Gait Belt,Front Wheeled Walker Orthotic/Prosthetic Devices or Brace: No Gait Deviations General Gait Pattern Antalgic,Decreased Stride Length,Decreased Feet Clearance,Narrow Based Gait, Step-to Gait Factors Limiting Gait Function Factors Limiting Gait Function Decreased Activity Tolerance, Decreased Strength,Poor Balance,Poor Safety Awareness, Respiratory Distress Comments Gait Comments ambulated without AD ~ 20 ft min A and DENTAL OFFICER provided. pt presents with unsteady gait, narrow JONATHAN and decrease LE elevation, step length. assess ambulation using FWW CGA and cues ~ 30 ft. pt is steadier and has better stance during standing. PT-Balance Assessment Sitting Balance and Reactions Static Sitting Balance Ability Good Dynamic Sitting Balance Ability Good Standing Balance and Reactions Static Standing Balance Ability Fair Dynamic Standing Balance Ability Fair Device Used FWW M5 PT-IP Objective Assessments Start: 01/19/21 14:24 Freq: NEEDED Status: Active Protocol: Document 01/19/21 13:25 AB (Rec: 01/19/21 14:47 AB [id number]) Orientation Orientation/Cognition Level of Alertness Confusional State Orientation Name Safety Awareness Decreased Safety Awareness Memory Description Short Term Impaired,Rn First Assistant Impaired Gross Range of Motion Lower Extremity ROM Assessment Within Functional Limits Strength Lower Extremity Strength Hip 4-/5 Knee 4-/5 Sensation Assessment Sensation Gross Sensation WNL Muscle Tone Muscle Tone WNL Yes M6 PT-IP Treatment Start: 01/19/21 14:24 Freq: NEEDED Status: Active Protocol: Document 01/19/21 13:25 AB (Rec: 01/19/21 14:47 AB [id number]) Physical Therapy Treatment Education Education Provided Safety M7 PT-IP Assessment and Plan Start: 01/19/21 14:24 Freq: NEEDED Status: Active Protocol: Document 01/19/21 13:25 AB (Rec: 01/19/21 14:47 AB [email or web address]) PT Summary Assessment and Plan Potential Rehabilitation Potential Good Status of Condition at Evaluation Stable Summary Impairments Pain,ROM,Strength,Balance, Coordination,Sensation,Tone, Cognition,Bed Mobility, Transfers,Gait,Activity Tolerance Assessment Summary pt requiring CGA with ambulation using FWW but required min A for ambulation without AD. pt has decrease safety awareness due to cognitive issues. pt lives at [facility]. Pt may go back to [facility] if needed assitance can be provided. Goals Bed Mobility Goal Independent Transfer Goal Independent,Front Wheeled Walker Gait Goal Independent,Front Wheel Walker Gait Distance 100 Other Goals ambulation without AD 150 ft SBA Days to Meet Goals 5 Frequency of Treatment Frequency Of Treatment Once a Day Treatment Plan Physical Therapy Treatment Plan Bed Mobility Training,Transfer Training,Gait Training, Therapeutic Exercise,Balance Retraining,Discharge Planning, Neuromuscular Re-ed, Coordination Retraining Recommendations To Nursing Amount of Assist Needed 1 Person Assist Discharge Recommendations PT Discharge Recommendations Home with 17/06 Assist Available Other Discharge Recommendations back to [facility] Transportation Needs at Discharge Wheelchair/Cabulance
[2021-01-19] MEDS: GABAPENTIN 100 MG CAPSULE PO ×2 (14:07→21:35)
--- NOTE | 2021-01-19 20:06 | DI.ECHO.S_ITS ---
[facility] +---------+ : : [address] [place] : : : : [id number] : : : : Phone: [phone] Echocardiogram Report + + :Name: BOB HENRY Study Date: 01/20/2021 Height: 63 in : :[facility] ReadingLocation: Weight: 100 lb : : Gender: Female BSA: 1.4 m2 : :: 1935 Age: 86 yrs BP: 130/59 mmHg: :Reason For Study: PLEURAL EFFUSIONS, [id number] : : Performed By: João Solis : :Referring: YAHAIRA SALMERON : + + Interpretation Summary The left ventricle is normal in size. The ejection fraction is estimated to be 35-40%. There is moderate to severe hypokinesis of mid to distal anterior wall, apex, mid to distal anterolateral and posterior lateral wall, mid to distal anterior septum and distal inferior septum. The right ventricle is normal in size and function. There is moderate mitral annular calcification. There is mild mitral regurgitation. The mitral valve mean gradient is 3.1 mmHg. There is mild mitral stenosis. The aortic valve is severely calcified. There is severely reduced leaflet mobility. The peak aortic velocity is 4.68 m/sec. The aortic valve mean gradient is 71.8 mmHg. The calculated aortic valve area is 0.46 cm2. There is critically severe aortic stenosis. There is moderate aortic regurgitation. There is mild tricuspid regurgitation. The right ventricular systolic pressure is estimated to be at least 32 mmHg based on an estimated right atrial pressure of 3 mm Hg. There is a small pericardial effusion noted. There are no echocardiographic or Doppler indications for cardiac tamponade. There is a moderate left-sided pleural effusion. There is a large right-sided pleural effusion. Procedure: A two-dimensional transthoracic echocardiogram with color flow and Doppler was performed. The study quality was technically good. There is no prior echocardiogram noted for this patient. The patient was in normal sinus rhythm during the exam. Left Ventricle: The left ventricle is normal in size. Left ventricular wall thickness is mildly increased. There is no thrombus. The ejection fraction is estimated to be 35-40%. There is moderate to severe hypokinesis of mid to distal anterior wall, apex, mid to distal anterolateral and posterior lateral wall, mid to distal anterior septum and distal inferior septum. MV E/A: 0.63 Med Peak E' Abhijit: 2.7 cm/sec E/E' med: 31.1. Right Ventricle: The right ventricle is normal in size and function. Atria: The left atrium is severely dilated. Right atrial size is normal. A prominent eustachian valve is noted. There is no Doppler evidence for an atrial septal defect. Mitral Valve: There is moderate mitral annular calcification. The mitral valve leaflets are mildly calcified. The mitral valve chordae are thickened and/or calcified. The mitral valve mean gradient is 3.1 mmHg. There is mild mitral stenosis. There is mild mitral regurgitation. Aortic Valve: The aortic valve is not well visualized. The aortic valve is severely calcified. There is severely reduced leaflet mobility. The peak aortic velocity is 4.68 m/sec. The aortic valve mean gradient is 71.8 mmHg. The calculated aortic valve area is 0.46 cm2. The severity ratio is 0.19. There is critically severe aortic stenosis. There is moderate aortic regurgitation. Tricuspid Valve: The tricuspid valve is normal. There is mild tricuspid regurgitation. The right ventricular systolic pressure is estimated to be at least 32 mmHg based on an estimated right atrial pressure of 3 mm Hg. Pulmonic Valve: The pulmonic valve is not well seen, but is grossly normal. There is trace pulmonic regurgitation. Great Vessels: The aortic root is normal size. The dimensions of the ascending aorta are normal. The pulmonary artery is normal size. The IVC is of normal diameter and collapses greater than 50% with a sniff. This suggests a low right atrial pressure of 3 mm Hg. Pericardium/ Pleura There is a small pericardial effusion noted. There are no echocardiographic or Doppler indications for cardiac tamponade. There is a moderate left-sided pleural effusion. There is a large right-sided pleural effusion. MMode/2D Measurements & Calculations LVIDd: 4.8 cm LVOT diam: 1.8 cm LVIDs: 3.2 cm Ao root diam: 2.5 cm FS: 32.4 % asc Aorta Diam: 2.9 cm EPSS: 0.89 cm IVSd: 1.2 cm LVPWd: 1.2 cm LV hanson. diameter/BSA (cm/m^2): 3.3 LV sys. diameter/BSA (cm/m^2): 2.2 LA dimension: 4.8 cm RA long axis: 4.3 cm LA A2 area: 22.6 cm2 RA area: 13.4 cm2 LA A4 area: 22.7 cm2 RA vol: 35.1 ml LA length (vol): 5.8 cm RA : 24.4 ml/m2 LA vol: 74.7 ml IVC diam: 1.5 cm LA vol index: 51.9 ml/m2 TAPSE: 1.6 cm Doppler Measurements & Calculations Ao V2 max: 468.7 cm/sec LVOT Max Abhijit: 73.5 cm/sec Ao V2 mean: 419.9 cm/sec LV V1 max P.2 mmHg Ao max P.9 mmHg LV V1 VTI: 22.9 cm Ao mean P.8 mmHg GERSON(I,D): 0.46 cm2 Ao V2 VTI: 121.4 cm GERSON(V,D): 0.38 cm2 sev ratio: 0.19 GERSON indexed to BSA (cm^2/m^2): 0.32 AI P1/2t: 296.4 msec AI dec slope: 367.4 cm/sec2 MV E max abhijit: 85.1 cm/sec TR max abhijit: 270.2 cm/sec MV A max abhijit: 135.9 cm/sec TR max P.2 mmHg MV E/A: 0.63 PA V2 max: 89.9 cm/sec Med Peak E' Abhijit: 2.7 cm/sec PA V2 mean: 70.8 cm/sec E/E' med: 31.1 PA mean P.1 mmHg Lat Peak E' Abhijit: 1.7 cm/sec PA pr(Accel): 48.2 mmHg E/E' lat: 50.7 E/e' average: 40.9 MV dec time: 0.26 sec MVA(VTI): 2.1 cm2 MV V2 mean: 84.1 cm/sec SV(LVOT): 55.5 ml MV mean P.1 mmHg MV V2 VTI: 27.1 cm Reading Physician:01:12 PM
[2021-01-19] MEDS: CEFTRIAXONE 1 GM/50 ML FROZ.PIGGY IV (21:35)
[2021-01-19] MEDS: BUSPIRONE 15 MG TABLET 7.5 MG PO (21:42)
[2021-01-19] MEDS: PRAVASTATIN 20 MG TABLET 40 MG PO (21:42)
[2021-01-20 00:11] VITALS: BP 113/53; PULSE 82; RESP 18; TEMP 36.4; O2SAT 91
[2021-01-20 04:00] VITALS: BP 130/59; PULSE 85; RESP 19; TEMP 36.3; O2SAT 94
[2021-01-20 04:57] LABS: Add Manual Diff / Slide Review NO; Basophils Absolute Auto 0 /uL (0-100); Basophils Percent Auto 0.6 % (0-2); Eosinophils Absolute Auto 200 /uL (0-450); Eosinophils Percent Auto 2.7 % (2-4); Hematocrit 33.4 % (36-46); Hemoglobin 10.7 g/dL (12.0-16.0); Lymphocytes Absolute Auto 1900 /uL (1100-4500); Lymphocytes Percent Auto 29.9 % (25-40); Mean Corpuscular Hemoglobin 26.9 PG (26-34); Monocytes Absolute Auto 600 /uL (0-900); Monocytes Percent Auto 10.2 % (3-14); Neutrophils Absolute Auto 3600 /uL (1500-7000); Neutrophils Percent Auto 56.6 % (50-75); Platelet Count 144 X10^3/uL (150-400); Red Blood Cell Count 3.98 X10^6/uL (4.0-5.2); Red Cell Distribution Width 15.5 % (11.6-14.8); White Blood Cell Count 6.3 X10^3/uL (4.5-11.0)
[2021-01-20 05:04] LABS: Alanine Aminotransferase 13 IU/L (<35); Albumin 3.1 g/dL (3.5-5.0); Albumin Globulin Ratio 1.1 (1.0-2.8); Alkaline Phosphatase 70 U/L (38-126); Aspartate Aminotransferase 26 IU/L (14-36); BUN Creatinine Ratio 21.3 (6-22); Bilirubin Total 0.2 mg/dL (0.2-1.3); Blood Urea Nitrogen 17 mg/dL (7-17); Calcium 8.8 mg/dL (8.4-10.2); Carbon Dioxide 31 mmol/L (22-32); Chloride 106 mmol/L (98-107); Estimated Glomerular Filt Rate > 60.0 mL/min (>60); Globulin 2.7 g/dL (1.7-4.1); Glucose 100 mg/dL (80-110); HEMOLYSIS < 15 (0-50); Sodium 137 mmol/L (137-145); Total Protein 5.8 g/dL (6.3-8.2)
[2021-01-20 05:11] LABS: NT-proBNP (BNP-Adult 18+) 14000 pg/mL (<450)
[2021-01-20 05:23] LABS: Magnesium 1.6 mg/dL (1.6-2.3)
[2021-01-20] MEDS: PANTOPRAZOLE 20 MG TABLET PO (06:43)
[2021-01-20] MEDS: LEVOTHYROXINE 88 MCG TABLET PO (06:43)
--- NOTE | 2021-01-20 07:27 | P.PN_ITS ---
Subjective Subjective Date Patient Seen: 01/20/21 Time Patient Seen: 07:27 Interval history: Feeling about the same this morning. Has an appetite and denies any nausea or vomiting. Slept fine overnight. Denies she has any worsening shortness of breath. No chest pain. No heart palpitations. Nursing reports no concerns. Exam Vital Signs (past 8 hours): - 01/20/21 00:11 01/20/21 04:00 Temperature 97.5 F L 97.3 F L Pulse Rate 82 85 Respiratory Rate 18 19 Blood Pressure 113/53 L 130/59 L Pulse Oximetry 91 94 Fraction of Inspired Oxygen 30 Oxygen Delivery Method Nasal Cannula Oxygen Flow Rate 0.5 Narrative Exam Narrative: GENERAL: Alert and oriented to person and place, appearing stated age and in no acute distress. HEENT: Head normocephalic/atraumatic. Pupils equal, round, and reactive to light and accomodation. Extraocular muscles intact. Tympanic membranes clear. Nasal mucosa moist, septum midline. Oral mucosa moist, no lesions. Neck soft and supple, no lymphadenopathy. LUNGS: Diminished inspiratory effort, bibasilar rales. No wheezes. CV: Normal S1 and S2 with regular rate and rhythm, 3/5 systolic murmur, no rubs or gallops. ABDOMEN: Soft, non-tender, non-distended, no organomegaly. Positive bowel sounds. EXTREMITIES: No clubbing, cyanosis, or edema. NEURO: Cranial nerves II through XII grossly intact, no focal deficits. PSYCH: Alert and oriented x 2. Disoriented to time. SKIN: No concerning lesions. Objective Labs Result Diagrams: 01/20/21 04:37 01/20/21 04:37 Labs: Laboratory Results - last 24 hr 01/19/21 01/19/21 01/19/21 08:04 08:04 08:04 WBC 8.6 RBC 4.45 Hgb 11.9 L Hct 37.8 MCV 84.9 MCH 26.8 MCHC 31.6 RDW 15.6 H Plt Count 167 Neut % (Auto) 55.3 Lymph % (Auto) 34.5 [place] % (Auto) 8.0 Eos % (Auto) 1.6 L Baso % (Auto) 0.6 Neut # (Auto) 4700 Lymph # (Auto) 2900 [place] # (Auto) 700 Eos # (Auto) 100 Baso # (Auto) 100 PT INR APTT 37 H Sodium 139 Potassium 3.8 Chloride 107 Carbon Dioxide 28 BUN 15 Creatinine 0.80 Estimated GFR > 60.0 BUN/Creatinine Ratio 18.8 Glucose 104 Lactate Calcium 9.0 Magnesium Total Bilirubin 0.4 AST 32 ALT 17 Alkaline Phosphatase 90 Total Creatine Kinase CK-MB (CK-2) CK-MB (CK-2) Rel Index Troponin I NT-Pro-B Natriuret Pep 22614 H Total Protein 6.7 Albumin 3.7 Globulin 3.0 Albumin/Globulin Ratio 1.2 Lipase 227 Procalcitonin Urine RBC Urine WBC Ur Squamous Epith Cells Urine Bacteria Ur Culture Indicated? SARS-CoV-2 (PCR) 01/19/21 01/19/21 01/19/21 08:04 08:04 08:04 WBC RBC Hgb Hct MCV MCH MCHC RDW Plt Count Neut % (Auto) Lymph % (Auto) [place] % (Auto) Eos % (Auto) Baso % (Auto) Neut # (Auto) Lymph # (Auto) [place] # (Auto) Eos # (Auto) Baso # (Auto) PT 11.8 INR 1.0 APTT Sodium Potassium Chloride Carbon Dioxide BUN Creatinine Estimated GFR BUN/Creatinine Ratio Glucose Lactate Calcium Magnesium Total Bilirubin AST ALT Alkaline Phosphatase Total Creatine Kinase 51 CK-MB (CK-2) TNP CK-MB (CK-2) Rel Index TNP Troponin I 0.020 NT-Pro-B Natriuret Pep Total Protein Albumin Globulin Albumin/Globulin Ratio Lipase Procalcitonin Urine RBC Urine WBC Ur Squamous Epith Cells Urine Bacteria Ur Culture Indicated? SARS-CoV-2 (PCR) Negative 01/19/21 01/19/21 01/19/21 08:20 08:50 09:25 WBC RBC Hgb Hct MCV MCH MCHC RDW Plt Count Neut % (Auto) Lymph % (Auto) [place] % (Auto) Eos % (Auto) Baso % (Auto) Neut # (Auto) Lymph # (Auto) [place] # (Auto) Eos # (Auto) Baso # (Auto) PT INR APTT Sodium Potassium Chloride Carbon Dioxide BUN Creatinine Estimated GFR BUN/Creatinine Ratio Glucose Lactate 0.7 Calcium Magnesium Total Bilirubin AST ALT Alkaline Phosphatase Total Creatine Kinase CK-MB (CK-2) CK-MB (CK-2) Rel Index Troponin I NT-Pro-B Natriuret Pep Total Protein Albumin Globulin Albumin/Globulin Ratio Lipase Procalcitonin 0.06 Urine RBC 1-5/hpf Urine WBC 30-100/hpf H Ur Squamous Epith Cells 1-5 /hpf Urine Bacteria Many (>30) H Ur Culture Indicated? Specimen cultured SARS-CoV-2 (PCR) 01/20/21 01/20/21 01/20/21 04:37 04:37 04:37 WBC 6.3 RBC 3.98 L Hgb 10.7 L Hct 33.4 L MCV 84.0 MCH 26.9 MCHC 32.0 RDW 15.5 H Plt Count 144 L Neut % (Auto) 56.6 Lymph % (Auto) 29.9 [place] % (Auto) 10.2 Eos % (Auto) 2.7 Baso % (Auto) 0.6 Neut # (Auto) 3600 Lymph # (Auto) 1900 [place] # (Auto) 600 Eos # (Auto) 200 Baso # (Auto) 0 PT INR APTT Sodium 137 Potassium 4.0 Chloride 106 Carbon Dioxide 31 BUN 17 Creatinine 0.80 Estimated GFR > 60.0 BUN/Creatinine Ratio 21.3 Glucose 100 Lactate Calcium 8.8 Magnesium 1.6 Total Bilirubin 0.2 AST 26 ALT 13 Alkaline Phosphatase 70 Total Creatine Kinase CK-MB (CK-2) CK-MB (CK-2) Rel Index Troponin I NT-Pro-B Natriuret Pep 40589 H Total Protein 5.8 L Albumin 3.1 L Globulin 2.7 Albumin/Globulin Ratio 1.1 Lipase Procalcitonin Urine RBC Urine WBC Ur Squamous Epith Cells Urine Bacteria Ur Culture Indicated? SARS-CoV-2 (PCR) [facility] Medical History Acute intra-cranial hemorrhage Anxiety Arthritis Dementia Depression Diverticulosis Gastroesophageal reflux disease Hyperlipidemia Hypothyroid Low back pain Macular degeneration Urinary incontinence Social History household members: none Smoking Status: Never smoker alcohol intake: never Assessment & Plan Assessment & Plan narrative: 1. Acute respiratory distress likely secondary to heart failure of unknown type versus pneumonia Plan: Continue prophylactic azithromycin and rocephin as well as supportive care. Echo today. BNP climbing, will repeat 40 mg of Lasix x 1. 2. Acute metabolic encephalopathy, secondary to UTI +/- pneumonia +/- CHF. -Preliminary urine culture showing Gram-negative bacilli. Blood cultures show no growth. Plan: Care as above. 3. Dementia, senile Plan: Have taken SCDs off as patient is also fall risk and has been trying to get out of bed. One-to-one nursing orders placed. Will continue usual home medications. 4. Anxiety/depression, chronic Plan: Will continue her usual home medications and consult pastoral care. 5. Hypothyroidism, chronic Plan: Continue home medications. 6. Hyperlipidemia, chronic Plan: Continue home medications. 7. GERD, chronic Plan: Continue home medications. 8. Subarachnoid hemorrhage, chronic Plan: Supportive care. 9. Fall risk Plan: 1:1 nursing care. DVT prophylaxis: Patient is a fall risk, cannot be on blood thinners. She is also an eloper, making her SCDs a potential agent for tripping her as she tries to get out of bed without assistance. Unable to provide DVT prophylaxis during stay. GI prophylaxis: Home PPI. Code: DNR
[2021-01-20 08:00] VITALS: BP 130/63; PULSE 81; RESP 18; TEMP 36.9; O2SAT 93
[2021-01-20] MEDS: FUROSEMIDE 40 MG/4 ML VIAL IV (08:39)
[2021-01-20] MEDS: GABAPENTIN 100 MG CAPSULE PO ×2 (08:39→20:38)
[2021-01-20] MEDS: BUSPIRONE 15 MG TABLET 7.5 MG PO ×2 (08:39→20:38)
[2021-01-20] MEDS: ESCITALOPRAM 10 MG TABLET 15 MG PO (08:40)
[2021-01-20] MEDS: AZITHROMYCIN 500 MG in DEXTROSE 5% IN WATER 250 ML IV (08:41)
[2021-01-20] MEDS: LORazepam 0.5 MG TABLET PO (10:22)
[2021-01-20 12:00] VITALS: BP 123/57; PULSE 78; RESP 19; TEMP 37.1; O2SAT 92
--- NOTE | 2021-01-20 13:36 | PT.IPTN ---
Current Diagnoses Unspecified dementia without behavioral disturbance (01/19/21) Physical Therapy Treatment Note M2 PT-IP Current Condition Start: 01/19/21 14:24 Freq: NEEDED Status: Active Protocol: Document 01/19/21 13:25 AB (Rec: 01/19/21 14:47 AB [id number]) Physical Therapy Current Condition Current Condition Evaluation Date 01/19/21 Treatment Diagnosis SOB; difficulty in walking Onset Date 01/19/21 Precautions Other Precautions falls; O2 sat M3 PT-IP Subjective Start: 01/19/21 14:24 Freq: NEEDED Status: Active Protocol: Document 01/20/21 13:26 HH (Rec: 01/20/21 13:36 [id number]) Subjective Physical Therapy Visit Type Type Treatment Note Visit Start Time 13:00 Visit Stop Time 13:23 Total Visit Minutes 23 Number of CUTTING AND PRINTING MACHINE OPERATOR Visits 0 Physical Therapy Visit Comments Patient Comments pt is agreeable to do PT M4 PT-IP Mobility and Gait Start: 01/19/21 14:24 Freq: NEEDED Status: Active Protocol: Document 01/20/21 13:26 HH (Rec: 01/20/21 13:36 [id number]) PT-Bed Mobility Assessment Supine to Sit Supine to Sit Standby Assistance,Head of Bed Elevated Sit to Supine Sit to Supine Minimal Assistance Scooting Scooting Up and Down in Bed Minimal Assistance PT-Transfer Assessment Sit to and From Stand Sit to and from Stand Contact Guard Assistance,1 Person Assistance,Use of Upper Extremities Equipment Transfer Assistive Device None,Gait Belt,Front Wheeled Walker Orthotic/Prosthetic Devices or Brace: No Comments Mobility Comments Pt was awake in bed upon PT arrival. O2 sat room air 92%. pt with confusion. and needed one step command to instruct pt. pt completed supine to sit SBA with HOB elevated. Completed sit to stand min A and ambulated without AD min A ~ 50 ft but CGA provided. presents with very unsteady gait. And LOB x 3 and needed assistance to recover. FWW then provided after and she amb x 40 ft CGA without signs of LOB. Pt needed redirection to her room and constant cues to properly use her FWW. Pt completed sit to supine min A. required min A for positioning in bed. call light and table placed within reach. Pt overall was still very confused and needed constant cues with 1 step simple command. Gait Assessment Gait Gait Assistance Required: Minimum Assistance Distance (Feet) 90 Assistive Devices Assistive Device None,Gait Belt,Front Wheeled Walker Orthotic/Prosthetic Devices or Brace: No Gait Deviations General Gait Pattern Antalgic,Decreased Stride Length,Decreased Feet Clearance,Narrow Based Gait, Step-to Gait Factors Limiting Gait Function Factors Limiting Gait Function Decreased Activity Tolerance, Decreased Strength,Poor Balance,Poor Safety Awareness, Respiratory Distress Comments Gait Comments Pt LOB x 3 with NBOS and needed assistance to recover but no LOB with FWW. However, d/t her confusion, pt often needed redirection to properly use FWW and direction guidance. PT-Balance Assessment Sitting Balance and Reactions Static Sitting Balance Ability Good Dynamic Sitting Balance Ability Good Standing Balance and Reactions Static Standing Balance Ability Fair Dynamic Standing Balance Ability Fair Device Used FWW M5 PT-IP Objective Assessments Start: 01/19/21 14:24 Freq: NEEDED Status: Active Protocol: Document 01/19/21 13:25 AB (Rec: 01/19/21 14:47 AB [id number]) Orientation Orientation/Cognition Level of Alertness Confusional State Orientation Name Safety Awareness Decreased Safety Awareness Memory Description Short Term Impaired,Vinyl Top Installer Impaired Gross Range of Motion Lower Extremity ROM Assessment Within Functional Limits Strength Lower Extremity Strength Hip 4-/5 Knee 4-/5 Sensation Assessment Sensation Gross Sensation WNL Muscle Tone Muscle Tone WNL Yes M6 PT-IP Treatment Start: 01/19/21 14:24 Freq: NEEDED Status: Active Protocol: Document 01/19/21 13:25 AB (Rec: 01/19/21 14:47 AB [email or web address]) Physical Therapy Treatment Education Education Provided Safety M7 PT-IP Assessment and Plan Start: 01/19/21 14:24 Freq: NEEDED Status: Active Protocol: Document 01/20/21 13:26 (Rec: 01/20/21 13:36 [id number]) PT Summary Assessment and Plan Potential Rehabilitation Potential Good Status of Condition at Evaluation Stable Summary Impairments Pain,ROM,Strength,Balance, Coordination,Sensation,Tone, Cognition,Bed Mobility, Transfers,Gait,Activity Tolerance Progress Towards Goals Slow Progress due to Medical Issues,Slow Progress due to Activity Tolerance,Slow Progress - Other Assessment Summary Pt progress slowly with consistent confusion. She overall needed min A for ambulation with FWW and constant redirection. Pt is no longer safe to amb without AD since she LOB x 3. pt with decrease safety awareness due to cognitive issues who has high fall risk. Pt may go back to [facility] if needed assitance can be provided. Goals Bed Mobility Goal Independent Transfer Goal Independent,Front Wheeled Walker Gait Goal Independent,Front Wheel Walker Gait Distance 100 Other Goals ambulation without AD 150 ft SBA Days to Meet Goals 5 Frequency of Treatment Frequency Of Treatment Once a Day Treatment Plan Physical Therapy Treatment Plan Bed Mobility Training,Transfer Training,Gait Training, Therapeutic Exercise,Balance Retraining,Discharge Planning, Neuromuscular Re-ed, Coordination Retraining Recommendations To Nursing Amount of Assist Needed 1 Person Assist Discharge Recommendations PT Discharge Recommendations Home with 17/06 Assist Available Other Discharge Recommendations back to [facility] Transportation Needs at Discharge Wheelchair/Cabulance
--- NOTE | 2021-01-20 14:41 | PC.NURSE ---
Day shift note: Output 1625 ml this shift. Up OOB with PT. Oriented to self, unaware of location and situation. Tele: NSR. Echo performed at bedside. Occasionally agitated and suspicious, otherwise calm, and cooperative. High fall risk precautions maintained. Updated son Beba via phone.
--- NOTE | 2021-01-20 14:41 | DIET.PN ---
Dietary Progress Note Assessment: 86y F c advanced dementia admitted for SOB secondary to either CHF exacerbation or pneumonia referred to nutrition for advanced dementia and Assessment Assessment showing high risk for malnutrition. HT: 160cm WT: 45.7kg UBW: 49kg BMI: 17.7 (severe for age) Pt recently relocated to the area from [place] to be closer to family, lives at [facility]. This facility is in lock-down so CM note indicates pt depressed and crying all of the time while there for not being able to see family. Pt has hx of falls which resulted in ED visit in 09/13 and 12/15. Pt chart review pt has 7.6% unintentional weight loss in past 6w (severe). Pts POs are 50-75% for breakfast and lunch today. Labs: BNP 14,000 H, urine bacteria and WBC H MNA: 8 @ risk for malnutrition Nathen: 17 @ risk for skin breakdown Nutrition Diagnosis: Severe Acute PCM r/t psychological causes (depression, dementia) aeb 7.6% unintentional weight loss in 6w (severe), BMI 17.7 (severe for age), pt has had two ED visits in past 5mo after GLF one resulting in subarachnoid hemmhorage, pt has advanced dementia oriented only to self living in new environment that has lockdown rules preventing her from seeing family. Interventions: 1. Recc 1:1 feeding assist c regular cuing secondary to advanced dementia. 2. Recc ONS Ensure Enlive bid to support PCM. Diet Order: EER: 1,600kcal (35kcal/kg per malnutrition), 60g PRO (1.3g/kg per malnutrition) Pt Goals: Pt will consume 75% of meal trays focusing on protein or 50% meal tray and 100% of one Ensure Enlive daily. Monitoring/Evaluations: ONS tolerance, POs, weight
--- NOTE | 2021-01-20 16:06 | CM.DANOTE ---
Discharge Planning/Care Management DCP: assessment: case received, EMR reviewed and checked in on pt. She is found in bed, eyes closed, o2 in place. Appears to be sleeping. Spoke then with Yohana/ regional director of admissions at [facility]. She confirms pt is a resident there. Pt does carry dx of advanced dementia but is not in the dementia wing. Yohana states, she does fine in the assisted living area of [place]. She is not a flight risk Pt admitted yesterday to care of PCP: Dr. Berg. INPT admission status: confirmed by MIKEY Siddiqui Payer: [employer]. Due to lateness of hour will not contact PHYLICIA son, listed as Tom Gutierrez/Nishant. [phone] DCP team will be following as POC unfolds for d/c issues and options. CM Discharge Assessment Start: 01/20/21 16:03 Freq: Status: Active Protocol: Document 01/20/21 16:04 ITV (Rec: 01/20/21 16:06 ITV [id number]) Discharge Planning Assessment Advance Directives? Yes: DPOA for HC and Financial , Living Will History Provided By Medical Record Prior Living Arrangements Assisted Living Facility Name Admitted From: [facility] with ADL's No Is patient alert and oriented? No Whiteboard Updated in Patient Room with Yes name and ext. # of Dredge Pumper Review Status In Process
[2021-01-20 17:32] VITALS: BP 121/57; PULSE 77; RESP 16; TEMP 36.6; O2SAT 96
[2021-01-20 19:20] VITALS: BP 107/55; PULSE 72; RESP 16; TEMP 36.3; O2SAT 93
[2021-01-20] MEDS: CEFTRIAXONE 1 GM/50 ML FROZ.PIGGY IV (20:37)
[2021-01-20] MEDS: PRAVASTATIN 20 MG TABLET 40 MG PO (20:38)
[2021-01-21] VITALS (7 sets, daily range): BP systolic 103–127; BP diastolic 51–87; PULSE 73–93; RESP 16–18; TEMP 36.2–37.2; O2SAT 91–95
[2021-01-21 05:49] LABS: Add Manual Diff / Slide Review NO; Basophils Absolute Auto 0 /uL (0-100); Basophils Percent Auto 0.5 % (0-2); Eosinophils Absolute Auto 300 /uL (0-450); Eosinophils Percent Auto 4.7 % (2-4); Hematocrit 34.7 % (36-46); Hemoglobin 11.2 g/dL (12.0-16.0); Lymphocytes Absolute Auto 1900 /uL (1100-4500); Lymphocytes Percent Auto 32.5 % (25-40); Mean Corpuscular HGB Conc 32.2 % (30-36); Mean Corpuscular Hemoglobin 26.9 PG (26-34); Mean Corpuscular Volume 83.6 fL (80-100); Monocytes Absolute Auto 600 /uL (0-900); Monocytes Percent Auto 10.4 % (3-14); Neutrophils Absolute Auto 3000 /uL (1500-7000); Neutrophils Percent Auto 51.9 % (50-75); Platelet Count 142 X10^3/uL (150-400); Red Blood Cell Count 4.15 X10^6/uL (4.0-5.2); Red Cell Distribution Width 15.3 % (11.6-14.8); White Blood Cell Count 5.8 X10^3/uL (4.5-11.0)
[2021-01-21 05:57] LABS: Alanine Aminotransferase 13 IU/L (<35); Albumin Globulin Ratio 1.1 (1.0-2.8); Alkaline Phosphatase 68 U/L (38-126); Aspartate Aminotransferase 25 IU/L (14-36); BUN Creatinine Ratio 17.8 (6-22); Bilirubin Total 0.2 mg/dL (0.2-1.3); Blood Urea Nitrogen 13 mg/dL (7-17); Calcium 8.9 mg/dL (8.4-10.2); Carbon Dioxide 32 mmol/L (22-32); Chloride 104 mmol/L (98-107); Estimated Glomerular Filt Rate > 60.0 mL/min (>60); Globulin 2.7 g/dL (1.7-4.1); Glucose 96 mg/dL (80-110); HEMOLYSIS < 15 (0-50); Potassium 3.9 mmol/L (3.4-5.1); Sodium 137 mmol/L (137-145); Total Protein 5.7 g/dL (6.3-8.2)
[2021-01-21 06:06] LABS: NT-proBNP (BNP-Adult 18+) 12700 pg/mL (<450)
[2021-01-21] MEDS: PANTOPRAZOLE 20 MG TABLET PO (08:02)
[2021-01-21] MEDS: LEVOTHYROXINE 88 MCG TABLET PO (08:02)
--- NOTE | 2021-01-21 09:17 | PT.IPTN ---
Current Diagnoses Unspecified dementia without behavioral disturbance (01/19/21) Physical Therapy Treatment Note M2 PT-IP Current Condition Start: 01/19/21 14:24 Freq: NEEDED Status: Active Protocol: Document 01/19/21 13:25 AB (Rec: 01/19/21 14:47 AB [id number]) Physical Therapy Current Condition Current Condition Evaluation Date 01/19/21 Treatment Diagnosis SOB; difficulty in walking Onset Date 01/19/21 Precautions Other Precautions falls; O2 sat M3 PT-IP Subjective Start: 01/19/21 14:24 Freq: NEEDED Status: Active Protocol: Document 01/21/21 09:17 AB (Rec: 01/21/21 10:27 AB [id number]) Subjective Physical Therapy Visit Type Type Treatment Note Visit Start Time 09:17 Visit Stop Time 09:31 Total Visit Minutes 14 Number of TICKET TAKER FERRYBOAT Visits 0 Physical Therapy Visit Comments Patient Comments pt agreed to ambulate but continues to have confusion M4 PT-IP Mobility and Gait Start: 01/19/21 14:24 Freq: NEEDED Status: Active Protocol: Document 01/21/21 09:17 AB (Rec: 01/21/21 10:27 AB [email or web address]) PT-Transfer Assessment Sit to and From Stand Sit to and from Stand Contact Guard Assistance,1 Person Assistance,Use of Upper Extremities Equipment Transfer Assistive Device Gait Belt,Front Wheeled Walker Orthotic/Prosthetic Devices or Brace: No Gait Assessment Gait Gait Assistance Required: Contact Guard Assist Distance (Feet) 100 Able to Maintain Weight Bearing Status Yes During Gait Assistive Devices Assistive Device Gait Belt,Front Wheeled Walker Orthotic/Prosthetic Devices or Brace: No Gait Deviations General Gait Pattern Decreased Stride Length, Decreased Feet Clearance,Step- to Gait Factors Limiting Gait Function Factors Limiting Gait Function Decreased Activity Tolerance, Decreased Strength,Difficulty Following Directions,Poor Balance,Poor Safety Awareness, Respiratory Distress Comments Gait Comments completed sit to stand from chair CGA and ambulated in room using FWW ~ 100 ft CGA and cues. O2 sat monitored. O2 at rest on room air 93%. pt was able to maintain O2 sat at 93% with activity. M5 PT-IP Objective Assessments Start: 01/19/21 14:24 Freq: NEEDED Status: Active Protocol: Document 01/19/21 13:25 AB (Rec: 01/19/21 14:47 AB [id number]) Orientation Orientation/Cognition Level of Alertness Confusional State Orientation Name Safety Awareness Decreased Safety Awareness Memory Description Short Term Impaired,Jail Impaired Gross Range of Motion Lower Extremity ROM Assessment Within Functional Limits Strength Lower Extremity Strength Hip 4-/5 Knee 4-/5 Sensation Assessment Sensation Gross Sensation WNL Muscle Tone Muscle Tone WNL Yes M6 PT-IP Treatment Start: 01/19/21 14:24 Freq: NEEDED Status: Active Protocol: Document 01/21/21 09:17 AB (Rec: 01/21/21 10:27 AB [email or web address]) Physical Therapy Treatment Education Education Provided Safety M7 PT-IP Assessment and Plan Start: 01/19/21 14:24 Freq: NEEDED Status: Active Protocol: Document 01/21/21 09:17 AB (Rec: 01/21/21 10:27 AB [email or web address]) PT Summary Assessment and Plan Potential Rehabilitation Potential Good Summary Impairments Strength,Balance,Cognition,Bed Mobility,Transfers,Gait, Activity Tolerance Progress Towards Goals Slow Progress due to Activity Tolerance Assessment Summary pt improving slowly but require FWW for ambulation CGA . pt requires cues for all tasks due to cognitive issues. pt lives at [facility]. pt may go back to [facility] with assistance needed and may benefit from HHPT to improve activity tolerance, balance and overall strength. Goals Bed Mobility Goal Independent Transfer Goal Independent,Front Wheeled Walker Gait Goal Independent,Front Wheel Walker Gait Distance 200 Other Goals ambulation without AD 150 ft SBA Days to Meet Goals 5 Frequency of Treatment Frequency Of Treatment Once a Day Treatment Plan Physical Therapy Treatment Plan Bed Mobility Training,Transfer Training,Gait Training, Therapeutic Exercise,Balance Retraining,Discharge Planning, Neuromuscular Re-ed, Coordination Retraining Recommendations To Nursing Amount of Assist Needed 1 Person Assist Discharge Recommendations PT Discharge Recommendations Home with 17/06 Assist Available,Home Health Other Discharge Recommendations back to [facility] Transportation Needs at Discharge Wheelchair/Cabulance
--- NOTE | 2021-01-21 09:22 | PM.PN.1 ---
Subjective Subjective Date Patient Seen: 01/21/21 Time Patient Seen: 09:22 Interval history: Had an uneventful night, still feeling sick and tearfuly throughout interview. Reports that her right forearm is hurting her this morning, just superior to her IV. After adjusting the IV, reports that it no longer hurts and then says that it hurts again. Nursing reports that she has had the same complaint with her but with distraction, forgets about it. She has been eating well, no nausea or vomiting. Son is at the bedside providing supportive care. Denies abdominal pain, dysuria, or polyuria. Afebrile. PT is working with patient and says that she needs cues for all tasks due to her dementia but that she may return to [facility] with appropriate assistance. Exam Vital Signs (past 8 hours): - 01/21/21 05:23 01/21/21 07:57 01/21/21 08:00 Temperature 97.2 F L 98.1 F Pulse Rate 78 74 93 H Respiratory Rate 16 16 18 Blood Pressure 117/58 L 127/59 L Pulse Oximetry 95 91 93 Fraction of Inspired Oxygen 30 Oxygen Delivery Method Nasal Cannula Oxygen Flow Rate 1 Narrative Exam Narrative: GENERAL: Alert and oriented to person and place, appearing stated age and in no acute distress. HEENT: Head normocephalic/atraumatic. Pupils equal, round, and reactive to light and accomodation. Extraocular muscles intact. Tympanic membranes clear. Nasal mucosa moist, septum midline. Oral mucosa moist, no lesions. Neck soft and supple, no lymphadenopathy. LUNGS: Diminished inspiratory effort, bibasilar rales. No wheezes. CV: Normal S1 and S2 with regular rate and rhythm, 3/5 systolic murmur, no rubs or gallops. ABDOMEN: Soft, non-tender, non-distended, no organomegaly. Positive bowel sounds. EXTREMITIES: No clubbing, cyanosis, or edema. IV in right hand is well placed with no signs of edema or erythema. Line/unwell. Forearm muscles are not tender with patient distraction. NEURO: Cranial nerves II through XII grossly intact, no focal deficits. PSYCH: Alert and oriented x 2. Disoriented to time. SKIN: No concerning lesions. Objective Labs Result Diagrams: 01/21/21 05:25 01/21/21 05:25 Labs: Laboratory Results - last 24 hr 01/20/21 01/21/21 01/21/21 13:10 05:25 05:25 WBC 5.8 RBC 4.15 Hgb 11.2 L Hct 34.7 L MCV 83.6 MCH 26.9 MCHC 32.2 RDW 15.3 H Plt Count 142 L Neut % (Auto) 51.9 Lymph % (Auto) 32.5 [place] % (Auto) 10.4 Eos % (Auto) 4.7 H Baso % (Auto) 0.5 Neut # (Auto) 3000 Lymph # (Auto) 1900 [place] # (Auto) 600 Eos # (Auto) 300 Baso # (Auto) 0 Sodium 137 Potassium 3.9 Chloride 104 Carbon Dioxide 32 BUN 13 Creatinine 0.73 Estimated GFR > 60.0 BUN/Creatinine Ratio 17.8 Glucose 96 Calcium 8.9 Total Bilirubin 0.2 AST 25 ALT 13 Alkaline Phosphatase 68 NT-Pro-B Natriuret Pep 96409 H Total Protein 5.7 L Albumin 3.0 L Globulin 2.7 Albumin/Globulin Ratio 1.1 Nasal Screen MRSA (PCR) Negative for mrsa [facility] Medical History Acute intra-cranial hemorrhage Anxiety Arthritis Dementia Depression Diverticulosis Gastroesophageal reflux disease Hyperlipidemia Hypothyroid Low back pain Macular degeneration Urinary incontinence Social History household members: none Smoking Status: Never smoker alcohol intake: never Assessment & Plan Assessment & Plan narrative: 1. Acute respiratory distress likely secondary to severe aortic stenosis and heart failure with reduced ejection fraction, acute -Echo on 01/20/21 showed EF of 35-40% with moderate to severe hypokinesis of the anterior wall, also had critically severe aortic stenosis with a severe calcification of aortic valve. Patient also had mild mitral regurgitation and mild mitral stenosis. Plan: Will consult with cardiology regarding patient's new finding of severe aortic stenosis. Treatement is valve replacement and she is not likely to be a candidate for that given her age and dementia. Will start daily lasix and closely trend BNPs. Will give lasix 80 mg IV x 1 this morning and start oral potassium. Repeat BNP and BMP in am. 2. Severe Aortic stenosis, new Plan: As above. 3. Heart failure with reduced ejection fraction, new Plan: As above. 4. Bilateral pleural effusion, worsening, secondary to heart failure. Plan: Lasix as above. 5. Acute metabolic encephalopathy, secondary to UTI and CHF. Do not think that patient has pneumonia but rather compressive atalectasis as her pleural effusions have increased in size since her stay and she remains afebrile and without a cough or white count. -Urine culture shows e-coli resistant to cipro/levofloxacin. -Blood cultures show no growth. Plan: Will narrow coverage to azithromycin and switch to oral therapy as patient is complaining of pain in arm that has her IV. Will needd 3 more days. 5. UTI Plan: As above. Will transition to oral antibiotic today as patient is having pain with her IV. 5. Dementia, senile Plan: Have taken SCDs off as patient is also fall risk and has been trying to get out of bed. Have stopped one-to-one, patient has not needed this. Will continue usual home medications. 6. Weakness, likely multifactorial from acute illness, deconditinign, depression, and dementia Plan: PT. Treating underlying diseases. 7. Anxiety/depression, chronic Plan: Will continue her usual home medications and consult pastoral care. 8. Hypothyroidism, chronic Plan: Continue home medications. 9. Hyperlipidemia, chronic Plan: Continue home medications. 10. GERD, chronic Plan: Continue home medications. 11. Subarachnoid hemorrhage, chronic Plan: Supportive care. 12. Fall risk Plan: Fall precautions, as above. DVT prophylaxis: Patient is a fall risk, cannot be on blood thinners. She is also an eloper, making her SCDs a potential agent for tripping her as she tries to get out of bed without assistance. Unable to provide DVT prophylaxis during stay. GI prophylaxis: Home PPI. Code: DNR Disposition: Anticipate at least one more day in the hospital due to her significant pleural effusions that are worsening and depending on cardiology consult. As she has newly discovered severe aortic stenosis, her heart failure and effusions will only worsen if she doesn't undergo diuresis prior to transfer back to her SNF. She currently is not requiring oxygen but anticipate that she will again go into acute respiratory distress the first night that she is back at her SNF. Depending on cardiology input, may need to talk about goals of care with family if/when this recurs, as she is an unlikely surgical candidate for valve replacement. 70 minutes spent with patient today in meeting with patient and her son, examining patient, discussing with nursing, consultants, formulating plan, and dictating.
[2021-01-21] MEDS: AZITHROMYCIN 500 MG in DEXTROSE 5% IN WATER 250 ML IV (10:03)
[2021-01-21] MEDS: BUSPIRONE 15 MG TABLET 7.5 MG PO ×2 (10:04→20:24)
[2021-01-21] MEDS: ESCITALOPRAM 10 MG TABLET 15 MG PO (10:07)
[2021-01-21] MEDS: SODIUM CHLORIDE 0.9% FLUSH 10 ML IV ×2 (10:09→20:26)
[2021-01-21] MEDS: GABAPENTIN 100 MG CAPSULE PO ×3 (10:09→20:25)
[2021-01-21] MEDS: FUROSEMIDE 100 MG/10 ML VIAL 80 MG IV (14:14)
[2021-01-21] MEDS: POTASSIUM CHLORIDE 20 MEQ/15 ML UDC 40 MEQ PO (14:15)
[2021-01-21] MEDS: LORazepam 0.5 MG TABLET PO (16:08)
--- NOTE | 2021-01-21 17:48 | PM.EVENT ---
Event Note Date Patient Seen: 01/21/21 Time Patient Seen: 17:48 Event Note: Spoke with son, Roddy, after speaking with Dr. Adam regarding new diagnosis of critically severe aortic stenosis. Dr. Adam confirmed that this is a terminal diagnosis as patient is not a candidate for valve replacement due to her age and dementia. Plan will be to proceed with hospice. Discussed having a family meeting with Roddy and his siblings over Zoom tomorrow. Roddy will be present in the hospital for morning rounds and will connect with the family over Zoom when I am by. All will have a chance to ask questions and we will make a plan for change in care. Will discuss arranging hospice with discharge planning in the morning. Roddy demonstrated understanding and appreciation for the call. Questions answered.
[2021-01-21] MEDS: ZOLPIDEM 5 MG TABLET 2.5 MG PO (20:24)
[2021-01-21] MEDS: PRAVASTATIN 20 MG TABLET 40 MG PO (20:25)
[2021-01-21] MEDS: cephALEXin 250 MG CAPSULE 500 MG PO (20:25)
[2021-01-22 00:10] VITALS: BP 113/56; PULSE 90; RESP 18; TEMP 36.6; O2SAT 94
[2021-01-22 05:00] LABS: Add Manual Diff / Slide Review NO; Basophils Absolute Auto 100 /uL (0-100); Basophils Percent Auto 0.8 % (0-2); Eosinophils Absolute Auto 400 /uL (0-450); Eosinophils Percent Auto 5.1 % (2-4); Hematocrit 36.3 % (36-46); Hemoglobin 11.6 g/dL (12.0-16.0); Lymphocytes Absolute Auto 2700 /uL (1100-4500); Lymphocytes Percent Auto 35.7 % (25-40); Mean Corpuscular Hemoglobin 26.8 PG (26-34); Mean Corpuscular Volume 83.9 fL (80-100); Monocytes Absolute Auto 800 /uL (0-900); Monocytes Percent Auto 10.7 % (3-14); Neutrophils Absolute Auto 3600 /uL (1500-7000); Neutrophils Percent Auto 47.7 % (50-75); Platelet Count 161 X10^3/uL (150-400); Red Blood Cell Count 4.32 X10^6/uL (4.0-5.2); Red Cell Distribution Width 15.4 % (11.6-14.8); White Blood Cell Count 7.6 X10^3/uL (4.5-11.0)
[2021-01-22 05:05] LABS: Alanine Aminotransferase 13 IU/L (<35); Albumin 3.3 g/dL (3.5-5.0); Albumin Globulin Ratio 1.2 (1.0-2.8); Alkaline Phosphatase 65 U/L (38-126); Aspartate Aminotransferase 24 IU/L (14-36); BUN Creatinine Ratio 15.8 (6-22); Bilirubin Total 0.2 mg/dL (0.2-1.3); Blood Urea Nitrogen 16 mg/dL (7-17); Carbon Dioxide 35 mmol/L (22-32); Chloride 102 mmol/L (98-107); Estimated Glomerular Filt Rate 52.1 mL/min (>60); Globulin 2.7 g/dL (1.7-4.1); Glucose 101 mg/dL (80-110); HEMOLYSIS < 15 (0-50); Potassium 4.4 mmol/L (3.4-5.1); Sodium 136 mmol/L (137-145)
[2021-01-22 05:09] VITALS: BP 117/59; PULSE 93; RESP 18; TEMP 35.9
[2021-01-22 05:12] LABS: NT-proBNP (BNP-Adult 18+) 10100 pg/mL (<450)
--- NOTE | 2021-01-22 06:51 | PC.NURSE ---
Pt desats in sleep. Repositioning aides in keeping sats up. Pt refused scheduled 0600 medications, requesting to take it later I'm sleeping, let me sleep. Passed on to next shift.
[2021-01-22 08:00] VITALS: BP 115/54; PULSE 74; RESP 17; TEMP 36.9; O2SAT 94
--- NOTE | 2021-01-22 08:24 | PM.PN.1 ---
Subjective Subjective Date Patient Seen: 01/22/21 Time Patient Seen: 08:24 Interval history: Met at bedside with patient and her son, Roddy. Today, she is complaining of some pain in her right heel that comes and goes. Makes no mention that her IV site is hurting her this morning. Appetite is poor. Denies nausea or vomiting. She knows that she is in the hospital again today. Still disoriented to time. Denies that she has shortness of breath or chest pain. She is on room air. Exam Vital Signs (past 8 hours): - 01/22/21 05:09 Temperature 96.7 F L Pulse Rate 93 H Respiratory Rate 18 Blood Pressure 117/59 L Fraction of Inspired Oxygen 30 Oxygen Delivery Method Room Air Oxygen Flow Rate 0 Narrative Exam Narrative: GENERAL: Alert and oriented to person and place, appearing stated age and in no acute distress. HEENT: Head normocephalic/atraumatic. Pupils equal, round, and reactive to light and accomodation. Extraocular muscles intact. Tympanic membranes clear. Nasal mucosa moist, septum midline. Oral mucosa moist, no lesions. Neck soft and supple, no lymphadenopathy. LUNGS: Diminished inspiratory effort, bibasilar rales. No wheezes. CV: Normal S1 and S2 with regular rate and rhythm, 3/5 systolic murmur, no rubs or gallops. ABDOMEN: Soft, non-tender, non-distended, no organomegaly. Positive bowel sounds. EXTREMITIES: No clubbing, cyanosis, or edema. IV in right hand is well placed with no signs of edema or erythema. Right ankle is without edema or erythema. Slightly tender PAWEL to lateral malleolus, not reproducible with distraction. NEURO: Cranial nerves II through XII grossly intact, no focal deficits. PSYCH: Alert and oriented x 2. Disoriented to time. SKIN: No concerning lesions. Objective Labs Result Diagrams: 01/22/21 04:30 01/22/21 04:30 Labs: Laboratory Results - last 24 hr 01/22/21 01/22/21 04:30 04:30 WBC 7.6 RBC 4.32 Hgb 11.6 L Hct 36.3 MCV 83.9 MCH 26.8 MCHC 32.0 RDW 15.4 H Plt Count 161 Neut % (Auto) 47.7 L Lymph % (Auto) 35.7 [place] % (Auto) 10.7 Eos % (Auto) 5.1 H Baso % (Auto) 0.8 Neut # (Auto) 3600 Lymph # (Auto) 2700 [place] # (Auto) 800 Eos # (Auto) 400 Baso # (Auto) 100 Sodium 136 L Potassium 4.4 Chloride 102 Carbon Dioxide 35 H BUN 16 Creatinine 1.01 Estimated GFR 52.1 L BUN/Creatinine Ratio 15.8 Glucose 101 Calcium 9.0 Total Bilirubin 0.2 AST 24 ALT 13 Alkaline Phosphatase 65 NT-Pro-B Natriuret Pep 82608 H Total Protein 6.0 L Albumin 3.3 L Globulin 2.7 Albumin/Globulin Ratio 1.2 PFSH Medical History Acute intra-cranial hemorrhage Anxiety Arthritis Dementia Depression Diverticulosis Gastroesophageal reflux disease Hyperlipidemia Hypothyroid Low back pain Macular degeneration Urinary incontinence Social History household members: none Smoking Status: Never smoker alcohol intake: never Assessment & Plan Assessment & Plan narrative: 1. Acute respiratory distress likely secondary to severe aortic stenosis and heart failure with reduced ejection fraction, acute -Echo on 01/20/21 showed EF of 35-40% with moderate to severe hypokinesis of the anterior wall, also had critically severe aortic stenosis with a severe calcification of aortic valve. Patient also had mild mitral regurgitation and mild mitral stenosis. -Discussed critically severe aortic stenosis with Dr. Adam, on-call sewing room supervisor; concurs that this is a terminal diagnosis. Patient is not a surgical candidate. Recommended hospice. Plan: Had a family meeting with patient's sons, Roddy and Antwan. Antwan was present on the phone. They were again informed of the terminal diagnosis of critically severe aortic stenosis and that there is no treatment for this because their mother is not a surgical candidate. Hospice was recommended. Shared decision was made to proceed with hospice which can be arranged starting tomorrow. Plan will be to discharge back to [facility] and start hospice. Will give another dose of lasix 80 mg IV x 1 this morning to help with diuresis. Potassium was 4.4, so will hold off on repletion today. Repeat BNP and BMP in am. 2. Critically severe Aortic stenosis, new Plan: As above. 3. Heart failure with reduced ejection fraction, new Plan: As above. 4. Bilateral pleural effusion, worsening, secondary to heart failure. Plan: Ass above. 5. Acute metabolic encephalopathy, secondary to UTI and CHF. -Urine culture shows e-coli resistant to cipro/levofloxacin. -Blood cultures show no growth. Plan: Will continue azithromycin, needs 2 more days, stop tomorrow. Last dose can be given in the hospital prior to discharge. 5. UTI Plan: As above. 5. Dementia, senile Plan: Will continue usual home medications. 6. Weakness, likely multifactorial from acute illness, deconditioning, depression, and dementia Plan: Will hold PT at this point. 7. Anxiety/depression, chronic Plan: Will continue her usual home medications and consult pastoral care. 8. Hypothyroidism, chronic Plan: Continue home medications. 9. Hyperlipidemia, chronic Plan: Have stopped statin. 10. GERD, chronic Plan: Continue home medications. 11. Subarachnoid hemorrhage, chronic Plan: Supportive care. 12. Fall risk Plan: Fall precautions, as above. DVT prophylaxis: Patient is a fall risk, cannot be on blood thinners. She is also an eloper, making her SCDs a potential agent for tripping her as she tries to get out of bed without assistance. Unable to provide DVT prophylaxis during stay. GI prophylaxis: Home PPI. Code: DNR Disposition: Plan for discharge back to [facility] tomorrow on comfort care and hopice. 70 minutes spent with patient today in meeting with patient and her sons, examining patient, discussing with nursing, consultants, formulating plan, and dictating.
[2021-01-22] MEDS: BUSPIRONE 15 MG TABLET 7.5 MG PO ×2 (08:58→20:19)
[2021-01-22] MEDS: cephALEXin 250 MG CAPSULE 500 MG PO ×2 (08:58→20:18)
[2021-01-22] MEDS: GABAPENTIN 100 MG CAPSULE PO ×3 (08:58→20:19)
[2021-01-22] MEDS: LEVOTHYROXINE 88 MCG TABLET PO (08:58)
[2021-01-22] MEDS: ESCITALOPRAM 10 MG TABLET 15 MG PO (08:58)
[2021-01-22] MEDS: PANTOPRAZOLE 20 MG TABLET PO (09:03)
[2021-01-22] MEDS: SODIUM CHLORIDE 0.9% FLUSH 10 ML IV ×3 (10:00→20:19)
--- NOTE | 2021-01-22 11:59 | CM.DPC ---
Addendum entered by Nilda Ly R.N. 01/22/21 13:45: Spoke to nurse, Chris, and stated that she reassured son, that medications would be ordered for her when she leaves the hospital tomorrow for her comfort, which is what Dr. Berg will do. Attempted to meet with son again and give him a hospice brochure, but he was not in the room. Yesenia from [facility] has referral and will attempt to set up informational visit with son, Roddy, tomorrow. She will also update care management as far as when hospice will be able to admit to their services. Original Note: DCP Cont: Dr. Berg came by the care management's office, and indicated that she was going to talk to the family, son Roddy, and Antwan via zoom, about hospice. Patient has aortic stenosis, and is not a candidate for surgery. Stated that she will continue to need to be diuresed, and will consider comfort care. Updated Yohana at [facility], stated that they can accept patient before hospice is able to admit if she goes on comfort medications, but would not have any access to medications today. Yohana indicated that she should be able to accept patient tomorrow, after nurse, Ade Medina, comes over to assess her. Spoke to Roddy, son, PHYLICIA, who has been in room. He was on his phone talking to his brother Antwan, who is other POA. Mentioned hospice. Son indicated, where does hospice admit patient at, we thought she can't go back to [facility] unless she is on hospice. Let son know that this community case manager did have a conversation with Dr. Berg, and let her know that [facility] will take patient back tomorrow if comfort medications are on board, and if hospice has been initiated. Son indicated that he would like to discuss with his brother further, and consider possibility of taking her home. Let him know that this community case manager can come back later and provide hospice brochure. Spoke to Yesenia in admissions at [facility]. Stated that they will not be able to do the informational visit until tomorrow. Updated her on referral, letting her know that patient resides at [facility], and goal is for her to return there, most likely tomorrow, with hospice. Yohana has already accepted patient back. Faxed over referral, including face sheet, point of contact, Roddy, who has been at bedside. Included H&P, yesterday's progress note, labs, and med sheets. P: DCP to continue to follow. Plan is for patient to return to [facility] with hospice. Will follow up later with hospice information for patient's son. Nilda Ly RN/Design Teacher
[2021-01-22 12:00] VITALS: BP 106/52; PULSE 71; RESP 18; TEMP 36.8; O2SAT 95
[2021-01-22] MEDS: FUROSEMIDE 100 MG/10 ML VIAL 80 MG IV (14:25)
[2021-01-22 15:54] VITALS: BP 114/53; PULSE 74; RESP 16; TEMP 36.9; O2SAT 95
[2021-01-22] MEDS: ZOLPIDEM 5 MG TABLET 2.5 MG PO (20:19)
[2021-01-22 21:30] VITALS: BP 113/56; PULSE 70; RESP 17; TEMP 36.4; O2SAT 96
[2021-01-23 01:33] VITALS: BP 116/56; PULSE 68; RESP 18; TEMP 36.3; O2SAT 94
[2021-01-23 04:22] VITALS: BP 107/51; PULSE 73; RESP 18; TEMP 36.4; O2SAT 96
[2021-01-23 05:03] LABS: Add Manual Diff / Slide Review NO; Basophils Absolute Auto 0 /uL (0-100); Basophils Percent Auto 0.7 % (0-2); Eosinophils Absolute Auto 300 /uL (0-450); Eosinophils Percent Auto 4.7 % (2-4); Hematocrit 34.2 % (36-46); Lymphocytes Absolute Auto 1600 /uL (1100-4500); Mean Corpuscular HGB Conc 32.2 % (30-36); Mean Corpuscular Volume 83.8 fL (80-100); Monocytes Absolute Auto 700 /uL (0-900); Monocytes Percent Auto 11.6 % (3-14); Neutrophils Absolute Auto 3700 /uL (1500-7000); Platelet Count 147 X10^3/uL (150-400); Red Blood Cell Count 4.08 X10^6/uL (4.0-5.2); Red Cell Distribution Width 15.4 % (11.6-14.8); White Blood Cell Count 6.4 X10^3/uL (4.5-11.0)
[2021-01-23 05:15] LABS: Alanine Aminotransferase 12 IU/L (<35); Albumin 3.1 g/dL (3.5-5.0); Albumin Globulin Ratio 1.2 (1.0-2.8); Alkaline Phosphatase 58 U/L (38-126); Aspartate Aminotransferase 24 IU/L (14-36); Bilirubin Total 0.3 mg/dL (0.2-1.3); Blood Urea Nitrogen 19 mg/dL (7-17); Calcium 8.8 mg/dL (8.4-10.2); Carbon Dioxide 34 mmol/L (22-32); Chloride 100 mmol/L (98-107); Estimated Glomerular Filt Rate 55.9 mL/min (>60); Globulin 2.6 g/dL (1.7-4.1); Glucose 97 mg/dL (80-110); HEMOLYSIS < 15 (0-50); Potassium 4.3 mmol/L (3.4-5.1); Sodium 134 mmol/L (137-145); Total Protein 5.7 g/dL (6.3-8.2)
[2021-01-23 05:22] LABS: NT-proBNP (BNP-Adult 18+) 8550 pg/mL (<450)
[2021-01-23] MEDS: LEVOTHYROXINE 88 MCG TABLET PO (06:38)
[2021-01-23] MEDS: PANTOPRAZOLE 20 MG TABLET PO (06:38)
--- NOTE | 2021-01-23 07:58 | PM.DS.1 ---
History of Present Illness History of Present Illness Date Patient Seen: 01/23/21 Time Patient Seen: 07:58 Date of Onset of Symptoms: 01/19/21 Chief complaint: SOB Narrative: See history and physical dictated by Dr. Berg on 01/19/2021 Discharge Providers Provider Date of admission: 01/19/21 09:34 Discharge Date: 01/23/21 Primary care physician: Arianna Berg MD Consults: 01/19/21 09:23 Consult to Physician Urgent Comment: Consulting Provider: Arianna Berg Reason for consultation: admission Has provider been notified: Yes 01/19/21 13:00 Consult to Discharge Planning Routine Comment: 01/19/21 13:01 Consult to Dietitian, Adult Routine Comment: Pt has late stage dementia Reason For Exam: Order generated by admission assesment Consult to Pastoral Services Routine Comment: Order generated by admission assesment 01/19/21 20:02 Consult to Pastoral Services Routine Comment: depression/anxiety 01/22/21 14:26 Consult to Dietitian, Adult Routine Comment: Reason For Exam: severe acute protein calorie malnutrition Discharge provider: Reece Dockery MD Summary Hospital Course Discharge Diagnosis: Acute respiratory distress Critical severe aortic stenosis Heart failure systolic acute on chronic left Bilateral pleural effusions Acute metabolic encephalopathy secondary to UTI and CHF UTI Dementia with anxiety and depression Weakness Hyperlipidemia Chronic subarachnoid hemorrhage Hospital Course: Acute respiratory distress. Patient was admitted to the hospital. She was found to have an elevated BNP and echo was obtained. She was found to have worsening left heart failure with critical aortic stenosis. She was diuresed and seemed to be do better. Was stabilize and will go home on oral Lasix. For comfort mostly. To see if we can keep her from getting too short of breath. Critical severe aortic stenosis. She will be sent home on her usual Ativan and morphine as needed hospice will take over care Critical severe aortic stenosis. Echo was done on 2nd day of admission and found to be present. Discussion with tattoo identifier on-call along with primary care and feeling was that she was not a surgical candidate secondary to her age dementia. Only real treatment would be surgery. Discussed with sons who agree and patient will is elected to be switched to hospice and comfort care. Will be discharged on hospice. Heart failure systolic acute on chronic left heart. Echo showed worsening congestive heart failure. All felt to be secondary to her critical aortic stenosis. She was diuresed as best she could be and was discharged home on Lasix And comfort care. Bilateral pleural effusions. Found to be secondary to and felt to be secondary to her congestive heart failure secondary to her critical aortic stenosis which has now care. She will be diuresed as best she can and sent on comfort care. Acute metabolic encephalopathy. Patient with dementia but was worsening in her mental status. [place] to be secondary to combination of hypoxia and respiratory distress and her urinary tract infection. She was started on antibiotics on day 1 she will get a final dose here but no further treatment due to the fact that she is going on comfort care. Otherwise she seemed to clear and was doing better. Back to or usual state of dementia. UTI. Culture was obtained she was on antibiotics and these were discontinued on day of discharge she will be treated with comfort care as needed. Dementia with anxiety and depression. No other changes. Usual meds. Weakness. [place] to be secondary to both UTI and aortic stenosis with congestive heart failure. Was not addressed will be going home on comfort care. Hyperlipidemia. Not an issue during admission. She will have her statins discontinued. Chronic subarachnoid hemorrhage. Non issue during admission. Status at Discharge Cognitive/behavioral status at discharge: at baseline, confused Functional status at discharge: uses cane/walker Overall status at discharge: patient is not back to baseline Exam Vital Signs (past 8 hours): - 01/23/21 01:33 01/23/21 04:22 Temperature 97.3 F L 97.5 F L Pulse Rate 68 73 Respiratory Rate 18 18 Blood Pressure 116/56 L 107/51 L Pulse Oximetry 94 96 Fraction of Inspired Oxygen 30 Oxygen Delivery Method Room Air Oxygen Flow Rate 0 Narrative Exam Narrative: Alert fatigued elderly female confused in no acute distress. Mucous membranes moist. Neck supple without adenopathy. Lungs are clear. Heart regular rate and rhythm with a 3/6 systolic murmur best heard in the right sternal border projecting into the neck. Abdomen benign. Extremities without edema Objective Labs Result Diagrams: 01/23/21 04:45 01/23/21 04:45 Labs: Laboratory Results - last 24 hr 01/23/21 01/23/21 04:45 04:45 WBC 6.4 RBC 4.08 Hgb 11.0 L Hct 34.2 L MCV 83.8 MCH 27.0 MCHC 32.2 RDW 15.4 H Plt Count 147 L Neut % (Auto) 58.0 Lymph % (Auto) 25.0 [place] % (Auto) 11.6 Eos % (Auto) 4.7 H Baso % (Auto) 0.7 Neut # (Auto) 3700 Lymph # (Auto) 1600 [place] # (Auto) 700 Eos # (Auto) 300 Baso # (Auto) 0 Sodium 134 L Potassium 4.3 Chloride 100 Carbon Dioxide 34 H BUN 19 H Creatinine 0.95 Estimated GFR 55.9 L BUN/Creatinine Ratio 20.0 Glucose 97 Calcium 8.8 Total Bilirubin 0.3 AST 24 ALT 12 Alkaline Phosphatase 58 NT-Pro-B Natriuret Pep 8550 H Total Protein 5.7 L Albumin 3.1 L Globulin 2.6 Albumin/Globulin Ratio 1.2 PFSH Medical History Acute intra-cranial hemorrhage Anxiety Arthritis Dementia Depression Diverticulosis Gastroesophageal reflux disease Hyperlipidemia Hypothyroid Low back pain Macular degeneration Urinary incontinence Social History household members: none Smoking Status: Never smoker alcohol intake: never Discharge Assessment & Plan Assessment and Plan Assessment: Back to [facility] which is where she was residing prior for comfort care and hospice. Has been discussed with family. Discharge Plan Discharge Plan Patient Disposition: Assisted Living Transfer to: [facility] Assisted Living Provider Discharge Comment: comfort care will be admitted to hospice Discharge orders & Medications Discharge Orders: Discharge (Order); Ordered 01/23/21 Ordered By: Reece Dockery Prescriptions: New morphine 10 mg/5 mL solution 5 mg PO Q4H PRN (Reason: dyspnea) Qty: 100 RF: 0 furosemide [Lasix] 20 mg tablet 20 mg PO QAM Qty: 30 RF: 1 Continued levothyroxine 88 mcg tablet 88 mcg PO DAILY RF: 0 lorazepam 0.5 mg tablet 0.5 mg PO PRN PRN (Reason: Anxiety) RF: 0 omeprazole 20 mg capsule,delayed release(DR/EC) 20 mg PO DAILY RF: 0 gabapentin 100 mg capsule 100 mg PO TID RF: 0 buspirone 15 mg tablet 7.5 mg PO BID RF: 0 escitalopram oxalate 10 mg tablet 15 mg PO DAILY RF: 0 Discontinued pravastatin 40 mg tablet 40 mg PO DAILY RF: 0 Follow up/Referrals: Arianna Berg MD [Primary Care Provider] - Discharge Health Status Multidrug resistant organism: No MDRO Precautions: [place] Diet/Activity/Treatments Diet: Diet as Tolerated Liquid consistency: Normal/Thin Food texture: Regular Activity: as tolerated Skin/Wound/Dressing Care Report to your healthcare provider any signs of infection, such as:: chills, fever, night sweats, increased pain and unusual redness Discharge Data Primary Care Provider: Arianna Berg
[2021-01-23 08:00] VITALS: BP 113/58; PULSE 75; RESP 17; TEMP 36.9; O2SAT 94
[2021-01-23] MEDS: GABAPENTIN 100 MG CAPSULE PO (08:44)
[2021-01-23] MEDS: cephALEXin 250 MG CAPSULE 500 MG PO (08:44)
[2021-01-23] MEDS: ESCITALOPRAM 10 MG TABLET 15 MG PO (08:44)
[2021-01-23] MEDS: BUSPIRONE 15 MG TABLET 7.5 MG PO (08:45)
[2021-01-23] MEDS: SODIUM CHLORIDE 0.9% FLUSH 10 ML IV (08:45)
--- NOTE | 2021-01-23 08:48 | CM.DPC ---
Addendum entered by CAIN Singh 01/23/21 10:09: ADD: CHELSIE met with DA RN Cori and she confirms that pt can d/c back today but needing pt's Abx oral med added to the signed med rec. RN called Dr. Abreu's office and updated on need for abx and he will call the abx into the pharmacy and does not plan to write hard scripts for the new medications as they were esent to [facility]. CHELSIE faxed current signed med rec to [facility] with update on above. Return call from Hospice and Info Visit completed with paul Pereyra this morning and son now waiting to hear from [facility] about their visitation policy with pt on Comfort now. CHELSIE called paul Pereyra and confirmed above and he is stating if they cannot visit pt then he plans to bring pt home with Hospice to his house. SW inquired about caregivers and son does not feel this will be a barrier and feels he can likely get PP CG set quickly. CHELSIE called Yohana at [facility] and left [facility] requesting she call paul Pereyra to discuss visitation with son to determine d/c plan of return to Assisted Living vs home to paul Pereyra's house today. BF Addendum entered by CAIN Singh 01/23/21 09:24: ADD: CHELSIE left copy of Medicare Message with pt and helped put it in pt's discharge packet back to Michelle, kee aware of d/c and agreeable. CHELSIE faxed med rec and scripts efaxed to [facility] and MD orders to [facility] to review. BF Original Note: DCP Discharge with Comfort Care Per MD, PCP completed phone conference call with pt's 2 sons/DPOA's and they are both agreeable to pt d/c back to Assisted Living on Comfort Care with referral to Hospice . CHELSIE called [facility] NILA Muller and confirmed their RN will be bedside for pt assessment and check in with staff around 0930 today and will set up a time for late morning for transport back. CHELSIE faxed d/c summary to [facility] and also Hospice to review and then CHELSIE called Hospice and left [facility] with Yesenia in Intake with update on pt d/c today back to [facility] and confirming plan is Info Visit with son and get onto service at [facility] when they have an opening. CHELSIE updated RN and will fax med rec and scripts to [facility] when available. Plan: Patient to d/c back to [facility] today via facility van likely later this morning after bedside assessment by Michelle BURGER. CAIN Singh
--- NOTE | 2021-01-23 11:04 | DIET.PN ---
Dietary Progress Note Assessment: 86y F c advanced dementia admitted for SOB referred to nutrition for severe acute PCM. HT: 160cm WT: 44.4kg UBW: 49kg BMI: 17.4 (severe for age) Pt chart review pt has 7.6% unintentional weight loss in past 6w (severe). Pts POs have been consistently 50-75%. MNA: 8 @ risk for malnutrition Nathen: 17 @ risk for skin breakdown Nutrition Diagnosis: Severe Acute PCM r/t psychological causes (depression, dementia) aeb 7.6% unintentional weight loss in 6w (severe), BMI 17.4 (severe for age), pt has advanced dementia oriented only to self, living in new environment. Interventions: 1. Recc 1:1 feeding assist c regular cuing secondary to advanced dementia. 2. Recc ONS Ensure Enlive bid to support PCM. Diet Order: EER: 1,600kcal (35kcal/kg per malnutrition), 60g PRO (1.3g/kg per malnutrition) Pt Goals: Pt to consume 75% of meal trays focusing on protein or 50% meal tray and 100% of one Ensure Enlive daily. Monitoring/Evaluations: ONS tolerance, POs, weight
[2021-01-23 11:57] VITALS: BP 126/58; PULSE 75; RESP 16; TEMP 36.7; O2SAT 93
--- NOTE | 2021-01-23 13:16 | PC.NURSE ---
Patient report called to Loretta Medina at [facility]. Patient left facility with paperwork w/ facility designee. Patient left facility with all belongings.
== END 2021-01-23 13:00 | DRG 291 ==
LOC: ED 09:05 → AC 10:01 → ICU 01-20 09:04 → AC 01-23 09:17 → ICU 01-23 09:17
PROVIDERS: Admitting Provider Student in an Organized Health Care Education/Training Program; Emergency Provider Emergency Medicine; PCP Student in an Organized Health Care Education/Training Program; Referring Provider Emergency Medicine; Visit Provider Student in an Organized Health Care Education/Training Program
DX: I50.23 Acute on chronic systolic (congestive) heart failure (principal); G93.41 Metabolic encephalopathy; E43 Unspecified severe protein-calorie malnutrition; N39.0 Urinary tract infection, site not specified; Z16.23 Resistance to quinolones and fluoroquinolones; Z68.1 Body mass index [BMI] 19.9 or less, adult; R06.03 Acute respiratory distress; F03.90 Unspecified dementia, unspecified severity, without behavioral disturbance, psychotic disturbance, mood disturbance, and anxiety; I35.0 Nonrheumatic aortic (valve) stenosis; B96.20 Unspecified Escherichia coli [E. coli] as the cause of diseases classified elsewhere; E03.9 Hypothyroidism, unspecified; E78.5 Hyperlipidemia, unspecified; F41.9 Anxiety disorder, unspecified; K21.9 Gastro-esophageal reflux disease without esophagitis; F32.9 Major depressive disorder, single episode, unspecified; Z20.822 Contact with and (suspected) exposure to COVID-19; Z66 Do not resuscitate
CPT/HCPCS: 36415; 71045; 80053; 81003; 81015; 82550; 83605; 83690; 83735; 83880; 84145; 84484; 85025; 85610; 85730; 87040; 87077; 87086; 87186; 87635; 87797; 93005; 93306; 94762; 96365; 96366; 96375; 97116; 97161; 99284; 99285; C9803; J1940

== ENCOUNTER 2021-10-14 19:22 | Emergency (ER) | payer MEDICARE, OTHER, SELFPAY ==
[2021-01-19 12:37] VITALS: BMI 17.6
[2021-10-14 19:30] VITALS: BP 131/58; PULSE 65; RESP 20; TEMP 36.6; O2SAT 98; BMI 18.1
[2021-10-14 20:25] LABS: Add Manual Diff / Slide Review NO; Basophils Absolute Auto 0 /uL (0-100); Basophils Percent Auto 0.6 % (0-2); Eosinophils Absolute Auto 100 /uL (0-450); Eosinophils Percent Auto 2.5 % (2-4); Hematocrit 31.2 % (36-46); Hemoglobin 10.1 g/dL (12.0-16.0); Lymphocytes Absolute Auto 1100 /uL (1100-4500); Mean Corpuscular HGB Conc 32.2 % (30-36); Mean Corpuscular Hemoglobin 27.4 PG (26-34); Monocytes Absolute Auto 700 /uL (0-900); Monocytes Percent Auto 13.6 % (3-14); Neutrophils Absolute Auto 3100 /uL (1500-7000); Neutrophils Percent Auto 61.3 % (50-75); Platelet Count 140 X10^3/uL (150-400); Red Blood Cell Count 3.68 X10^6/uL (4.0-5.2); Red Cell Distribution Width 16.4 % (11.6-14.8); White Blood Cell Count 5.1 X10^3/uL (4.5-11.0)
[2021-10-14 20:38] LABS: Alanine Aminotransferase 15 IU/L (<35); Albumin Globulin Ratio 1.1 (1.0-2.8); Alkaline Phosphatase 100 U/L (38-126); Aspartate Aminotransferase 30 IU/L (14-36); BUN Creatinine Ratio 20.7 (6-22); Bilirubin Total 0.5 mg/dL (0.2-1.3); Blood Urea Nitrogen 17 mg/dL (7-17); Calcium 8.5 mg/dL (8.4-10.2); Carbon Dioxide 30 mmol/L (22-32); Chloride 103 mmol/L (98-107); Estimated Glomerular Filt Rate > 60.0 mL/min (>60); Globulin 2.8 g/dL (1.7-4.1); Glucose 93 mg/dL (80-110); HEMOLYSIS 22 (0-50); Sodium 136 mmol/L (137-145); Total Protein 5.8 g/dL (6.3-8.2)
[2021-10-14 20:49] LABS: Troponin I 0.025 ng/mL (0.01-0.034)
[2021-10-14 20:56] LABS: Appearance Urine UA CLEAR; Bilirubin Urine UA NEGATIVE (NEGATIVE); Color Urine UA YELLOW; Glucose Urine UA NEGATIVE (Negative); Ketones Urine UA NEGATIVE (NEGATIVE); Leukocyte Esterase Urine UA NEGATIVE (NEGATIVE); Nitrite Urine UA NEGATIVE (Negative); Occult Blood Urine UA NEGATIVE (Negative); Protein Urine UA NEGATIVE (Negative); Specific Gravity Urine UA <=1.005 (1.000-1.035); Urobilinogen Urine UA 0.2 E.U./dL (0.2); pH Urine UA 5.5 (4.5-8.0)
[2021-10-14 21:10] LABS: Bacteria Urine None Seen; Culture Indicated Urine Cult Not Indicated; RBC Urine None Seen (0-5/HPF); Renal Epithelial Cells Urine 0-1/HPF (0-1/HPF); WBC Urine None Seen (0-5/HPF)
--- NOTE | 2021-10-14 22:10 | ED_ITS ---
HPI - Fall General Chief Complaint: Fall Stated Complaint: GLF Time Seen by Provider: 10/14/21 19:32 Source: patient and EMS Mode of arrival: EMS History of Present Illness HPI Narrative: 86-year-old woman who lives that resolved [facility] with a history of dementia, critical aortic stenosis hypothyroidism, and anxiety who had a ground level fall and was found in her apartment. She had difficulty getting up off the floor as she typically would with no obvious complaints but is brought to the emergency room for further evaluation. Initially there was a question of left hip pain and then some left shoulder pain however on my exam she has no complaints at all. She denies any recent symptoms for review of systems however her cognitive impairment makes that and I will somewhat less reliable. Related Data Home Medications Medication Instructions Recorded Confirmed buspirone 15 mg tablet 7.5 mg PO BID 01/19/21 01/19/21 escitalopram oxalate 10 mg tablet 15 mg PO DAILY 01/19/21 01/19/21 gabapentin 100 mg capsule 100 mg PO TID 01/19/21 01/19/21 levothyroxine 88 mcg tablet 88 mcg PO DAILY 01/19/21 01/19/21 lorazepam 0.5 mg tablet 0.5 mg PO PRN PRN 01/19/21 01/19/21 omeprazole 20 mg capsule,delayed 20 mg PO DAILY 01/19/21 01/19/21 release Previous Rx's Medication Instructions Recorded furosemide 20 mg tablet (Lasix) 20 mg PO QAM #30 tab 01/23/21 morphine 10 mg/5 mL oral solution 5 mg (2.5 mL) PO Q4H PRN #100 ml 01/23/21 Allergies Allergy/AdvReac Type Severity Reaction Status Date / Time codeine Allergy Verified 01/19/21 08:07 metronidazole [From Flagyl] Allergy Verified 01/19/21 08:07 Review of Systems Review of Systems ROS Unobtainable: Unobtainable due to medical condition Patient History Medical History Acute intra-cranial hemorrhage Anxiety Arthritis Dementia Depression Diverticulosis Gastroesophageal reflux disease Hyperlipidemia Hypothyroid Low back pain Macular degeneration Urinary incontinence Social History household members: none Smoking Status: Never smoker alcohol intake: never Smoking Status: Never smoker Substance Use Type: does not use Exam Narrative Exam Narrative: General: Frail appearing but in no acute distress. HEENT: Moist mucous membranes, normal sclera with reactive pupils, head is atraumatic. She does have a 2 cm in diameter actinic keratosis over the crown of her head that is not traumatic Neck: No JVD, supple Respiratory: Lungs are clear to auscultation, no wheezing no rales no rhonchi. Full and symmetrical air movement Cardiac: Regular rate and rhythm no murmurs no bruits Abdomen: Soft, nontender, good bowel tones, no flank pain Skin: Warm and dry, no rashes, no abrasions or contusions appreciated Neurologic: Grossly neurologically intact with no obvious asymmetries or abnormalities Extremities: No trauma, well perfused. Full range of motion at hips shoulders elbows knees and wrists with no signs of trauma. Psych: Cooperative, not oriented to place or events. Fluent speech. Initial Vital Signs Initial Vital Signs: Vital Signs Temperature 97.9 F 10/14/21 19:30 Pulse Rate 65 10/14/21 19:30 Respiratory Rate 20 10/14/21 19:30 Blood Pressure 131/58 L 10/14/21 19:30 Pulse Oximetry 98 10/14/21 19:30 Course Orders Ordered: ED Orders 10/14/21 20:18 Complete Blood Count AUTO DIFF Stat Comprehensive Metabolic Panel Stat Troponin I Stat 10/14/21 20:19 EKG-12 Lead Stat 10/14/21 20:46 Urinalysis and Microscopic Stat Vital Signs Vital signs: Vital Signs - 8 hr 10/14/21 19:30 10/14/21 22:22 Temperature 97.9 F Pulse Rate 65 67 Respiratory Rate 20 18 Blood Pressure 131/58 L 130/60 Pulse Oximetry 98 94 MDM - Fall Lab Data Result diagrams: 10/14/21 20:18 10/14/21 20:18 Labs: Lab Results 10/14/21 10/14/21 10/14/21 Range/Units 20:18 20:18 20:46 WBC 5.1 (4.5-11.0) X10^3/uL RBC 3.68 L (4.0-5.2) X10^6/uL Hgb 10.1 L (12.0-16.0) g/dL Hct 31.2 L (36-46) % MCV 85.0 (80-100) fL MCH 27.4 (26-34) PG MCHC 32.2 (30-36) % RDW 16.4 H (11.6-14.8) % Plt Count 140 L (150-400) X10^3/uL Neut % (Auto) 61.3 (50-75) % Lymph % (Auto) 22.0 L (25-40) % [place] % (Auto) 13.6 (3-14) % Eos % (Auto) 2.5 (2-4) % Baso % (Auto) 0.6 (0-2) % Neut # (Auto) 3100 (2114-3564) /uL Lymph # (Auto) 1100 (2000-2185) /uL [place] # (Auto) 700 (0-900) /uL Eos # (Auto) 100 (0-450) /uL Baso # (Auto) 0 (0-100) /uL Sodium 136 L (137-145) mmol/L Potassium 4.0 (3.4-5.1) mmol/L Chloride 103 (98-107) mmol/L Carbon Dioxide 30 (22-32) mmol/L BUN 17 (7-17) mg/dL Creatinine 0.82 (0.52-1.04) mg/dL Estimated GFR > 60.0 (>60) mL/min BUN/Creatinine Ratio 20.7 (6-22) Glucose 93 (80-110) mg/dL Calcium 8.5 (8.4-10.2) mg/dL Total Bilirubin 0.5 (0.2-1.3) mg/dL AST 30 (14-36) IU/L ALT 15 (<35) IU/L Alkaline Phosphatase 100 (38-126) U/L Troponin I 0.025 (0.01-0.034) ng/mL Total Protein 5.8 L (6.3-8.2) g/dL Albumin 3.0 L (3.5-5.0) g/dL Globulin 2.8 (1.7-4.1) g/dL Albumin/Globulin Ratio 1.1 (1.0-2.8) Urine Color Yellow Urine Appearance Clear Urine pH 5.5 (4.5-8.0) Ur Specific [place] <=1.005 (1.000-1.035) Urine Protein Negative (Negative) Urine Glucose (UA) Negative (Negative) g/dL Urine Ketones Negative (NEGATIVE) Urine Occult Blood Negative (Negative) Urine Nitrate Negative (Negative) Urine Bilirubin Negative (NEGATIVE) Urine Urobilinogen 0.2 (0.2) E.U./dL Ur Leukocyte Esterase Negative (NEGATIVE) Urine RBC None seen (0-5/HPF) Urine WBC None seen (0-5/HPF) Ur Renal Epithelial Cell 0-1/hpf (0-1/HPF) Urine Bacteria None seen (None) Ur Culture Indicated? Cult not indicated ECG Data Interpretation: Sinus rhythm at a rate of 63 Left ventricular hypertrophy Nonspecific ST T wave changes Left axis deviation No acute ischemic changes MDM Narrative Medical decision making narrative: 86-year-old woman in pendant living with ground level fall no apparent injury on thorough exam. POLST form indicates that she is no code/comfort only consequently CT head imaging was not felt to be appropriate necessary for useful. There is no indication of stroke, heart attack, underlying etiology to explain any type of syncopal episode, urinary tract infection, other signs of infection. I suspect that she simply slid off her chair and was not able to get up off the floor by herself. She will go back to [facility] in her usual state of baseline health. Discharge Plan Departure Patient Disposition: Home Clinical Impression: Fall, Dementia, Weakness Instructions: How to Prevent Falls Activity Restrictions/Additional Instructions: Thank you for coming in this evening I did not find any evidence that you hurt yourself with your fall this evening. There is no sign of broken hips legs shoulders or arms. You did not complain of hitting her head or head pain and we did not do a head scan today. There is no sign of infection (bladder infection, pneumonia, intra-abdominal infection) or heart attack or stroke. It is safe for you to return to your Assisted Living Facility. If you have new or changing symptoms, please feel free to return to the ER Prescriptions: No Action levothyroxine 88 mcg tablet 88 mcg PO DAILY 0RF lorazepam 0.5 mg tablet 0.5 mg PO PRN PRN (Reason: Anxiety) 0RF omeprazole 20 mg capsule,delayed release(DR/EC) 20 mg PO DAILY 0RF gabapentin 100 mg capsule 100 mg PO TID 0RF buspirone 15 mg tablet 7.5 mg PO BID 0RF escitalopram oxalate 10 mg tablet 15 mg PO DAILY 0RF furosemide [Lasix] 20 mg tablet 20 mg PO QAM Qty: 30 1RF morphine 10 mg/5 mL solution 5 mg PO Q4H PRN (Reason: dyspnea) Qty: 100 0RF Referrals: Arianna Berg MD [Primary Care Provider] -
[2021-10-14 22:22] VITALS: BP 130/60; PULSE 67; RESP 18; O2SAT 94
== END 2021-10-14 23:46 | disposition home or self-care (01) ==
PROVIDERS: Emergency Provider Emergency Medicine; PCP Student in an Organized Health Care Education/Training Program
DX: R53.1 Weakness (principal); F03.90 Unspecified dementia, unspecified severity, without behavioral disturbance, psychotic disturbance, mood disturbance, and anxiety; W19.XXXA Unspecified fall, initial encounter
CPT/HCPCS: 36415; 80053; 81001; 84484; 85025; 93005; 99283

== ENCOUNTER → 2021-11-30 17:21 | Outpatient (ROUT) | payer OTHER, SELFPAY ==
[2021-01-19 12:37] VITALS: BMI 17.6
[2021-12-03 19:25] LABS: COVID19 Sendout Not Detected (Not Detect)
== END ==
PROVIDERS: PCP Student in an Organized Health Care Education/Training Program; Visit Provider Internal Medicine
DX: Z20.822 Contact with and (suspected) exposure to COVID-19 (principal)
CPT/HCPCS: 87635